=== PATIENT | male | born 1955 | race Caucasian/White ===

== ENCOUNTER → 2017-10-25 12:53 | Outpatient (CLI) | payer BC, SELFPAY ==
--- NOTE | 2017-10-25 12:57 | RAD_ITS ---
STUDY: X-RAY - CERVICAL SPINE REASON FOR EXAM: Male, 62 years old. Neck pain and right shoulder pain. TECHNIQUE: 5 view(s) of the cervical spine were obtained including oblique views. COMPARISON: None FINDINGS: Normal anterior atlantoaxial articulation. Normal odontoid process. There is straightening of the normal cervical lordosis. Normal vertebral bodies and endplates. Mild degree of disc space narrowing at the C5-C6 and C6-C7 levels. Normal visualized intervertebral neuroforamina. The soft tissue structures are unremarkable. RAD/Cerv Spine 4 or 5 Views IMPRESSION: Straightening of the normal cervical lordosis. Mild degree of disc space narrowing at the C5-C6 and C6-C7 levels. Electronically Signed: Fredy Huerta MD at 9:51 EDT Tel [phone], Service support ,
--- NOTE | 2017-10-25 12:57 | RAD_ITS ---
STUDY: X-RAY - RIGHT SHOULDER REASON FOR EXAM: Male, 62 years old. Pain TECHNIQUE: 3 view(s) of the shoulder. COMPARISON: None. FINDINGS: Normal glenohumeral articulation. Normal acromioclavicular joint. Normal acromion. Normal humeral head and visualized proximal humerus. The soft tissue structures are unremarkable. Normal visualized pulmonary apex. RAD/Shoulder min 2 Views IMPRESSION: Normal x-ray examination of the shoulder. Electronically Signed: Dewey Márquez MD at 22:16 EDT Tel , Service support ,
== END ==
PROVIDERS: Family Provider Family Medicine; PCP Family Medicine; Visit Provider Orthopaedic Surgery
DX: M54.2 Cervicalgia (principal); M25.511 Pain in right shoulder
CPT/HCPCS: 72050; 73030

== ENCOUNTER 2017-10-28 08:20 | Outpatient (RCR) | payer BC, SELFPAY ==
--- NOTE | 2017-11-04 11:09 | HP.PTEVAL_ITS ---
Patient's Visit Information CHANG TALBERT is a 62 year old M referred to Physical Therapy by DO PEGGY Verma with a diagnosis of R adhesive capsulitis and neck pain. Date of Evaluation: 10/28/17 Physical Therapist: Rafael Aguayo - Visit Plan Frequency: 2x /Week Duration: 4 Weeks Plan: Start with SNAGs with towel assist of cervical spine into extension and bilateral rotation. Progress R shoulder ROM, including distraction joint mobs progressing to full motion. Progress HEP as able. - Subjective Subjective: Pt. is here today for his initial evaluation with diagnosis of adhesive capsulitis and neck pain. Pt. reports having R shoulder pain for a few months now without a mechanism of injury. He reports having increased difficulty with raising his arm of his head, putting his coat on, reaching, lifting, sleeping on his R side and work/recreational activities. Decreased pain : not using his arm. His neck is mostly stiffness with extension and rotation. Pt. denies N/T in either UE and no suddness weakness noted. Pt. is not dropping any objects as well. Pt. reports that is arm does wake him up at night as well. Pt. is hopeful to reduce symptoms in order to get back to [employer] this summer/ spring without limitations. - Pain R shoulder Pain Intensity (Out of 10): 3 Pain Intensity Range: 0, 5 - Objective POSTURE: Pt. has rounded shoulders, but able to correct. Pt. has a long neck with slight FH positioning. Pt. has normal shoulder heights. PALPATION: Pt. has tenderness along subacromial space (minimal). Pt. has some tendernss along R UT and throughout posterior shoulder. No distal symptoms. NEUROLOGICAL: Pt. has normal sensation to light and sharp touch of bilateral UEs. Pt. has 2+ biceps and tricpes DTR bilaterally. No upper limb tension noted. ROM: AROM- L shoulder- flexon 180deg, abd 178deg, ext 50deg, Functional ER C6, fuctional IR T12 (L hand dominant). R shoulder- flexion 148deg increase in symptoms, abd 132deg increase in symptoms,functional ER C3 abherrant motion, functional IR- L5 increase in symptoms. PROM R shoulder- flexion 153deg increase NW, abd 144deg increase NW, ER at 90deg- 60deg, IR at 90deg 35deg. CERVICAL SPINE: flexion nil loss, ext min loss, rotation R min loss, rotation L min loss, SB nil loss bilat. No pain with cervical spine, just tightness. MMT- 5/5 throughout R and L shoulders. Pt. had mild increase NW with abd, no pain with ER. CERVICAL: 5/5 isometrics no pain. - Special Tests C/S Radiculapathy - Left Spurlings: Negative C/S Radiculapathy - Right Spurlings: Negative C/S Radiculapathy - Left Cervical distraction: Negative C/S Radiculapathy - Right Cervical distraction: Negative C/S Radiculapathy - Left Relief test: Negative C/S Radiculapathy - Right Relief test: Negative C/S Radiculapathy - Valsalva: Negative Cervical Sitting: Protrusion - Mechanical Response: No effect Cervical Sitting: Protrusion - Symptoms During Testing: No effect Cervical Sitting: Protrusion - Symptoms After Testing: No effect Cervical Sitting: Retraction - Mechanical Response: No effect Cervical Sitting: Retraction - Symptoms During Testing: No effect Cervical Sitting: Retraction - Symptoms After Testing: No effect Comments:: stiffness noted Cervical Sitting: Retraction-Extension - Mechanical Response: No effect Cerv Sitting: Retraction-Extension - Symptoms During Testing: No effect Cerv Sitting: Retraction-Extension - Symptoms After Testing: No effect Cervical Sitting: Sidebend Right - Mechanical Response: No effect Cervical Sitting: Sidebend Right - Symptoms During Testing: No effect Cervical Sitting: Sidebend Right - Symptoms After Testing: No effect Cervical Sitting: Sidebend Left - Mechanical Response: No effect Cervical Sitting: Sidebend Left - Symptoms During Testing: No effect Cervical Sitting: Sidebend Left - Symptoms After Testing: No effect Cervical Sitting: Rotation Right - Mechanical Response: No effect Cervical Sitting: Rotation Right - Symptoms During Testing: No effect Cervical Sitting: Rotation Right - Symptoms After Testing: No effect Comments:: stiffness noted Cervical Sitting: Rotation Left - Mechanical Response: No effect Cervical Sitting: Rotation Left - Symptoms During Testing: No effect Cervical Sitting: Rotation Left - Symptoms After Testing: No effect Comments:: stiffness noted Cervical Sitting: Flexion - Mechanical Response: No effect Cervical Sitting: Flexion - Symptoms During Testing: No effect Cervical Sitting: Flexion - Symptoms After Testing: No effect R Shoulder External Rotation Lag Test - RC Tear: Negative R Shoulder Drop Sign - IS Test: Negative R Shoulder Empty Can - SS: Negative R Shoulder Belly Press - SupScap: Negative R Shoulder Neer - Impingement: Positive R Shoulder [place] - Impingement: Positive R Shoulder Speeds Test - Labrum/Biceps: Negative R Shoulder Shrug Sign - OA/Adhesive Capsulitis: Negative - Goals Goal 1:: Pt. to be I with HEP. Goal Time Frame: 4-6 Weeks Goal 2:: Pt. to have increased R shoulder ROM to full throughout without increase in symptoms. Goal Time Frame: 4-6 Weeks Goal 3:: Pt. to have increased cervical extension and rotation bilaterally to full without symptoms. Goal Time Frame: 4-6 Weeks Goal 4:: Pt. to sleep throughout the night without increase in shoulder symptoms. Goal Time Frame: 4-6 Weeks Goal 5:: Pt. to complete all ADLs and job related activities without issues. Goal Time Frame: 4-6 Weeks Goal 6:: Pt. to resume all golfing withtout limitations of cervical spine or R shoulder. Goal Time Frame: 4-6 Weeks - Rehabilitation Potential Physical Therapy Diagnosis: Pt. presents with signs and symptoms consistent with R adhesive capsulitis and neck stiffness. Pt. did not have any signs of radicular symptoms. He most likely had a R shoulder injury and started to gaurd resulting in hypomobility. Pt. also has marked sitffness of his cervical spine with rotation and extension. Pt. would benefit from PT to increase R shoulder and cervical spine ROM allowing for increased tolerance to all ADLs and recreational activities. Rehabilitation Potential: Excellent - Anticipated Interventions Patient/Client Instruction: Educate patient on: Condition, Plan of Care, Risk Factors, Benefits of Fitness Program For the Purpose of:: To improve decision making, To facilitate caregiver knowledge, To improve self management, To prevent re-injury, To improve ability to perform tasks related to life management, To improve tolerance to ADL's Therapeutic Exercise to Include: Strength training, Power training, Flexibilty training, Passive ROM, Active ROM, Eusebio Exercises, Scapular Strength/ Stabilization For the Purpose of:: To decrease pain, To increase ROM, To improve nutrient delivery to tissue, To increase oxygenation perfusion, To improve muscle performance and motor function, To improve ability to perform ADL's, To increase tolerance to activity/condition/position, To improve health of tissue, To decrease soft tissue restriction, To increase flexibility/ROM Manual Therapy Techniques to Include: Mobilization, Passive ROM, Functional dry needling, Soft tissue mobilization For the Purpose of:: To decrease pain, To increase ROM, To improve nutrient delivery to tissue Thank you for the opportunity to evaluate your patient. For Medicare and Medicare HMO plans, please review the plan of care and approve it. It will need to be FAXED BACK to us at [phone] for Medicare purposes. Please let me know if there are questions or concerns regarding this plan of care. Physician Signature: Date:
--- NOTE | 2018-04-20 10:54 | HP.PTDCNRP_ITS ---
HP - Discharge Summary (1) - Patient Information CHANG TALBERT was seen in my office for initial evaluation on 10/28/17. The following Plan of Care was established for this patient: Initial Frequency: 2x /Week Initial Duration: 4 Weeks - Anticipated Interventions Patient/Client Instruction: Educate patient on: Condition, Plan of Care, Risk Factors, Benefits of Fitness Program For the Purpose of:: To improve decision making, To facilitate caregiver knowledge, To improve self management, To prevent re-injury, To improve ability to perform tasks related to life management, To improve tolerance to ADL's Therapeutic Exercise to Include: Strength training, Power training, Flexibilty training, Passive ROM, Active ROM, Eusebio Exercises, Scapular Strength/ Stabilization For the Purpose of:: To decrease pain, To increase ROM, To improve nutrient delivery to tissue, To increase oxygenation perfusion, To improve muscle performance and motor function, To improve ability to perform ADL's, To increase tolerance to activity/condition/position, To improve health of tissue, To decrease soft tissue restriction, To increase flexibility/ROM Manual Therapy Techniques to Include: Mobilization, Passive ROM, Functional dry needling, Soft tissue mobilization For the Purpose of:: To decrease pain, To increase ROM, To improve nutrient delivery to tissue This patient was last seen in our office 10/28/17. Pertinent comments regarding their Physical therapy will appear below: Pt. was evaluated for his adhesive capsulitis. Pt. was given exercises to work on ROM. I talked to patient today and he reports no longer having any issues. Pt. will be DC from PT at this point in time. At this point I will be discontinuing this patient from physical therapy. I would be happy to see this patient again in the future if found appropriate by the physician. Thank you! Rafael Aguayo
== END 2017-10-28 19:00 | disposition home or self-care (01) ==
LOC: PT 08:20
PROVIDERS: Family Provider Family Medicine; PCP Family Medicine; Visit Provider Orthopaedic Surgery
DX: M25.511 Pain in right shoulder (principal); M75.01 Adhesive capsulitis of right shoulder; M54.2 Cervicalgia
CPT/HCPCS: 97162

== ENCOUNTER → 2017-12-19 07:03 | Outpatient (CLI) | payer BC, SELFPAY ==
[2017-12-19 10:33] LABS: PSA,Total - Annual Screen 2.65 ng/mL (0.00-4.00)
[2017-12-19 10:57] LABS: AST(SGOT) 19 U/L (15-37); Alanine Aminotransfer ALT/SGPT 28 U/L (16-61); Albumin, Serum 3.7 g/dL (3.2-5.0); Alkaline Phosphatase 87 U/L (45-117); Bilirubin, Direct 0.13 mg/dL (0.00-0.30); Cholesterol 128 mg/dL (200); Globulin 3.9 g/dL (2.2-4.2); High Density Lipoprotein 49 mg/dL; Protein, Total 7.6 g/dL (6.4-8.2); Triglycerides 58 mg/dL; Very Low Density Lipoprotein 12 mg/dL (5-40)
== END ==
PROVIDERS: Family Provider Family Medicine; PCP Family Medicine; Visit Provider Internal Medicine Cardiovascular Disease
DX: E78.5 Hyperlipidemia, unspecified (principal); Z79.899 Other long term (current) drug therapy; Z12.5 Encounter for screening for malignant neoplasm of prostate
CPT/HCPCS: 36415; 80061; 80076; 84153; G0103

== ENCOUNTER → 2018-12-27 07:01 | Outpatient (CLI) | payer BC, SELFPAY ==
[2018-12-27 10:37] LABS: AST(SGOT) 21 U/L (15-37); Alanine Aminotransfer ALT/SGPT 28 U/L (16-61); Albumin, Serum 3.8 g/dL (3.2-5.0); Alkaline Phosphatase 84 U/L (45-117); Anion Gap 5 (5-15); BUN 14 mg/dL (7-18); Bilirubin, Direct 0.17 mg/dL (0.00-0.30); Calcium,Total 8.8 mg/dL (8.5-10.1); Chloride 108 mmol/L (98-107); Cholesterol 133 mg/dL (200); EST Glomerular Filtration Rate 80 mL/min (>60); Est Glom Filt Rate - Afr Amer 97 mL/min (>60); Globulin 3.8 g/dL (2.2-4.2); Glucose 82 mg/dL (74-106); High Density Lipoprotein 50 mg/dL; PSA,Total - Annual Screen 2.73 ng/mL (0.00-4.00); Potassium 3.9 mmol/L (3.5-5.1); Protein, Total 7.6 g/dL (6.4-8.2); Sodium Level 141 mmol/L (136-145); Triglycerides 50 mg/dL; Very Low Density Lipoprotein 10 mg/dL (5-40)
== END ==
PROVIDERS: Family Provider Family Medicine; PCP Family Medicine; Referring Provider Family Medicine; Visit Provider Family Medicine
DX: K40.20 Bilateral inguinal hernia, without obstruction or gangrene, not specified as recurrent (principal); E78.00 Pure hypercholesterolemia, unspecified; Z12.5 Encounter for screening for malignant neoplasm of prostate
CPT/HCPCS: 36415; 80048; 80061; 80076; 84153; G0103

== ENCOUNTER → 2019-05-03 13:37 | Outpatient (CLI) | payer BC, SELFPAY ==
[2019-05-03 13:32] VITALS: BMI 23.1
--- NOTE | 2019-05-03 13:38 | RAD_ITS ---
STUDY: X-RAY - RIGHT KNEE REASON FOR EXAM: Male, 64 years old. Pain. No specific injury. TECHNIQUE: 4 view(s) of the knee. COMPARISON: None. FINDINGS: Normal visualized distal femur. Normal visualized proximal tibia and fibula. Normal proximal tibiofibular articulation. There is no acute fracture, dislocation or destructive osseous pathology. Normal medial femorotibial compartment. Normal lateral femorotibial compartment. Normal patellofemoral articulation. There is no demonstrated joint effusion. The soft tissue structures are unremarkable. RAD/Knee 4 or More Views IMPRESSION: Normal x-ray examination of the knee. Electronically Signed: Waldo Eller DO at 17:07 EDT Tel [phone], Service support ,
== END ==
PROVIDERS: Family Provider Family Medicine; PCP Family Medicine; Referring Provider Physician Assistant; Visit Provider Physician Assistant
DX: M25.561 Pain in right knee (principal)
CPT/HCPCS: 73564

== ENCOUNTER → 2019-07-14 07:10 | Outpatient (CLI) | payer BC, SELFPAY ==
[2019-05-03 13:32] VITALS: BMI 23.1
--- NOTE | 2019-07-14 07:43 | RAD_ITS ---
STUDY: X-RAY - ACUTE ABDOMINAL SERIES REASON FOR EXAM: Male, 64 years old. Lower abdominal pain/pinching feeling TECHNIQUE: Single view of the chest. Supine, and erect view(s) of the abdomen were obtained. COMPARISON: None. FINDINGS: There is hyperinflation of the lungs consistent with chronic obstructive lung disease (COPD). Normal size heart. Normal mediastinum and rambo. Normal visualized pulmonary arteries. Normal visualized aortic arch and descending thoracic aorta. There is a non-specific bowel gas pattern. The soft tissue structures of the abdomen and pelvis are unremarkable. There is endplate spondylosis of the thoracic spine. RAD/Acute Abdomen Inc Chest IMPRESSION: Pulmonary findings suggestive of COPD. Endplate spondylosis of the thoracic spine. There is no evidence of ileus, obstruction, or free intraperitoneal air. Electronically Signed: Lester Acosta MD at 21:23 EST , Service support ,
[2019-07-14 08:12] LABS: Absolute Lymphocyte Count 1.66 X10^3/uL (0.83-4.51); Absolute Neutrophil Count 3.4 X10^3/uL (2.0-7.7); Basophil# 0.04 X10^3/uL; Basophil% 0.7 % (0-1); Eosinophil# 0.14 X10^3/uL; Eosinophils% 2.4 % (0-5); Hematocrit 48.1 % (40-54); Hemoglobin 15.4 g/dL (13.0-16.5); Lymphocyte # 1.66 X10^3/ul (4.0); Lymphocyte % 28.9 % (19-41); Mean Corpuscular Hgb 31.4 pg (27.0-32.0); Mean Corpuscular Volume 98.2 fL (80-94); Mean Platelet Vol. 9.3 fl (6.2-12.0); Monocyte# 0.51 X10^3/uL; Monocyte% 8.9 % (0-10); NRBC Flagged by Analyzer 0 % (0-5); Neutrophil # 3.38 X10^3/uL (2.7-7.7); Neutrophil % 58.9 % (47-70); Platelet Count 242 K/mm3 (150-450); RBC Distribution Width CV 12.9 % (11.6-14.6); RBC Distribution Width SD 46.3 fl (35.1-43.9); White Blood Count 5.7 K/mm3 (4.4-11.0)
[2019-07-14 08:47] LABS: BUN 15 mg/dL (7-18); Creatinine, Serum 1.02 mg/dL (0.70-1.30); Glucose 86 mg/dL (74-106)
[2019-07-14 08:48] LABS: ALB/GLOB Ratio 1.1 RATIO (0.9-2.4); AST(SGOT) 20 U/L (15-37); Alanine Aminotransfer ALT/SGPT 26 U/L (16-61); Albumin, Serum 4.1 g/dL (3.2-5.0); Alkaline Phosphatase 71 U/L (45-117); Anion Gap 5 (5-15); BUN/Creat Ratio 14.7 RATIO (10-20); Chloride 108 mmol/L (98-107); EST Glomerular Filtration Rate 78 mL/min (>60); Est Glom Filt Rate - Afr Amer 94 mL/min (>60); Globulin 3.7 g/dL (2.2-4.2); Potassium 3.6 mmol/L (3.5-5.1); Protein, Total 7.8 g/dL (6.4-8.2); Sodium Level 141 mmol/L (136-145)
== END ==
PROVIDERS: Family Provider Family Medicine; PCP Family Medicine; Referring Provider Family Medicine; Visit Provider Family Medicine
DX: R10.30 Lower abdominal pain, unspecified (principal)
CPT/HCPCS: 36415; 74022; 80053; 85025

== ENCOUNTER → 2019-08-02 11:04 | Outpatient (CLI) | payer BC, SELFPAY ==
[2019-05-03 13:32] VITALS: BMI 23.1
== END ==
PROVIDERS: Family Provider Family Medicine; PCP Family Medicine; Referring Provider Family Medicine; Visit Provider Family Medicine
DX: R19.7 Diarrhea, unspecified (principal)
CPT/HCPCS: 87493; 87506

== ENCOUNTER → 2019-08-27 08:11 | Outpatient (CLI) | payer BC, SELFPAY ==
[2019-05-03 13:32] VITALS: BMI 23.1
--- NOTE | 2019-08-27 08:17 | RAD_ITS ---
STUDY: X-RAY - ESOPHAGUS (BARIUM SWALLOW) WITH FLUOROSCOPY REASON FOR EXAM: Male, 64 years old. DYSPHAGIA X SEVERAL YEARS, GETTING WORSE, INCREASES WITH COLD LIQUIDS TECHNIQUE: 16 view(s) of the esophagus were obtained following swallowing of barium. FLUOROSCOPY TIME (if supplied): (0:27) minutes/seconds COMPARISON: None. FINDINGS: There is no demonstrated esophageal foreign body. There is no demonstrated stricture or mucosal abnormality. Normal gastroesophageal junction, without a demonstrated hiatal hernia. The patient ingested a 12 mm tablet of barium without any difficulty. There is atherosclerotic calcification of the aortic arch with tortuosity of the descending aorta. Normal visualized pulmonary parenchyma. There are degenerative changes of the visualized thoracic spine. RAD/Esophagus Only IMPRESSION: Unremarkable examination. Electronically Signed: Fredy Huerta, at 9:51 EST , Service support ,
== END ==
PROVIDERS: Family Provider Family Medicine; PCP Family Medicine; Referring Provider Family Medicine; Visit Provider Family Medicine
DX: R13.10 Dysphagia, unspecified (principal)
CPT/HCPCS: 74220

== ENCOUNTER → 2019-10-01 12:12 | Outpatient (CLI) | payer BC, SELFPAY ==
[2019-05-03 13:32] VITALS: BMI 23.1
--- NOTE | 2019-10-01 12:12 | EGD_PTH ---
PATIENT: CHANG TALBERT LOC: [facility] U#:[id number] AGE/SX: 70/M ROOM: RE10/01/[address]: Dr. López Christina MD : 1955 BED: DIS: SPEC #: [id number] RECD: 10/01/19 14:55 STATUS: BRI YU #: [id number] SAE: 10/01/19 12:[address]: López Christina DEPT: SURGICAL PATHOLOGY RECD BY: Cameron Gooden ENTERED: 10/02/19 09:22 SP TYPE: EGD BIOPSY OT DR: ISAUAR Tissues: Esophageal mucous membrane Procedures: Surgery Specimen Level IV HEADER OPERATION: EGD with biopsies PRE-OP DIAGNOSIS: Dysphagia TISSUE SUBMITTED: Esophageal biopsies, rule out EE MICROSCOPIC DIAGNOSIS Esophagus, biopsy: Fragments of superficial squamous mucosa. No evidence of inflammation. See comment. AM:annabel 10/03/19 COMMENT There is no evidence of eosinophilic esophagitis. Clinical correlation is suggested. MICROSCOPIC DESCRIPTION Slides are reviewed. GROSS DESCRIPTION Received in fixative is one container labeled with the patient's name and designated esophageal biopsy. The specimen consists of multiple irregular fragments of light smiley soft tissue that in aggregate measure 0.5 x 0.2 x 0.1 cm. The specimen is totally submitted in one cassette. / SJ:annabel 10/02/19 TC:5 CPT: 67518
== END ==
PROVIDERS: Referring Provider Internal Medicine Gastroenterology; Visit Provider Internal Medicine Gastroenterology
DX: R13.10 Dysphagia, unspecified (principal)
CPT/HCPCS: 88305

== ENCOUNTER → 2019-10-12 10:30 | Outpatient (CLI) | payer BC, SELFPAY ==
[2019-05-03 13:32] VITALS: BMI 23.1
== END ==
PROVIDERS: PCP Family Medicine; Referring Provider Family Medicine; Visit Provider Family Medicine
DX: A04.72 Enterocolitis due to Clostridium difficile, not specified as recurrent (principal)
CPT/HCPCS: 87493

== ENCOUNTER → 2020-01-09 07:01 | Outpatient (CLI) | payer BC, SELFPAY ==
[2019-05-03 13:32] VITALS: BMI 23.1
[2020-01-09 10:50] LABS: Anion Gap 6 (5-15); BUN 21 mg/dL (7-18); BUN/Creat Ratio 21.6 RATIO (10-20); Calcium,Total 9.1 mg/dL (8.5-10.1); Chloride 106 mmol/L (98-107); Cholesterol 130 mg/dL (200); Creatinine, Serum 0.97 mg/dL (0.70-1.30); EST Glomerular Filtration Rate 82 mL/min (>60); Est Glom Filt Rate - Afr Amer 100 mL/min (>60); Glucose 89 mg/dL (74-106); High Density Lipoprotein 54 mg/dL; Potassium 3.9 mmol/L (3.5-5.1); Sodium Level 140 mmol/L (136-145); Triglycerides 56 mg/dL; Very Low Density Lipoprotein 11 mg/dL (5-40)
== END ==
PROVIDERS: PCP Family Medicine; Referring Provider Family Medicine; Visit Provider Family Medicine
DX: E78.00 Pure hypercholesterolemia, unspecified (principal); Z13.1 Encounter for screening for diabetes mellitus; Z12.5 Encounter for screening for malignant neoplasm of prostate
CPT/HCPCS: 36415; 80048; 80061; 84153; G0103

== ENCOUNTER → 2020-01-31 07:14 | Outpatient (CLI) | payer BC, SELFPAY ==
[2019-05-03 13:32] VITALS: BMI 23.1
[2020-01-31 10:19] LABS: Absolute Lymphocyte Count 1.58 X10^3/uL (0.83-4.51); Absolute Neutrophil Count 2.9 X10^3/uL (2.0-7.7); Basophil# 0.04 X10^3/uL; Basophil% 0.8 % (0-1); Eosinophil# 0.13 X10^3/uL; Eosinophils% 2.6 % (0-5); Hematocrit 48.8 % (40-54); Hemoglobin 15.5 g/dL (13.0-16.5); Lymphocyte # 1.58 X10^3/ul (4.0); Lymphocyte % 31.5 % (19-41); Mean Corp Hgb Conc 31.8 g/dL (32-36); Mean Corpuscular Hgb 31.8 pg (27.0-32.0); Mean Platelet Vol. 9.9 fl (6.2-12.0); Monocyte# 0.37 X10^3/uL; Monocyte% 7.4 % (0-10); NRBC Flagged by Analyzer 0 % (0-5); Neutrophil # 2.88 X10^3/uL (2.7-7.7); Neutrophil % 57.5 % (47-70); Platelet Count 229 K/mm3 (150-450); RBC Distribution Width CV 12.8 % (11.6-14.6); RBC Distribution Width SD 47.8 fl (35.1-43.9); Red Blood Count 4.88 M/mm3 (4.6-6.2)
[2020-01-31 10:54] LABS: PSA,Total- Diagnostic 2.25 ng/mL (0.0-4.0)
== END ==
PROVIDERS: PCP Family Medicine; Referring Provider Family Medicine; Visit Provider Family Medicine
DX: R63.4 Abnormal weight loss (principal); R97.20 Elevated prostate specific antigen [PSA]
CPT/HCPCS: 36415; 84153; 84443; 85025

== ENCOUNTER → 2020-03-27 16:40 | Outpatient (CLI) | payer BC, SELFPAY ==
[2020-03-27 13:40] VITALS: BMI 21.7
[2020-03-27 17:58] LABS: AST(SGOT) 19 U/L (15-37); Alanine Aminotransfer ALT/SGPT 31 U/L (16-61); Albumin, Serum 3.8 g/dL (3.2-5.0); Alkaline Phosphatase 82 U/L (45-117); Bilirubin, Direct 0.15 mg/dL (0.00-0.30); Cholesterol 121 mg/dL (200); Globulin 3.6 g/dL (2.2-4.2); High Density Lipoprotein 48 mg/dL; Protein, Total 7.4 g/dL (6.4-8.2); T4 Total, Thyroxin 5.4 ug/dL (4.5-12.1); Thyroid Stim Hormone (TSH) 4.27 uIU/mL (0.358-3.74); Triglycerides 116 mg/dL; Very Low Density Lipoprotein 23 mg/dL (5-40)
== END ==
PROVIDERS: PCP Family Medicine; Referring Provider Internal Medicine Cardiovascular Disease; Visit Provider Internal Medicine Cardiovascular Disease
DX: E78.00 Pure hypercholesterolemia, unspecified (principal); E03.9 Hypothyroidism, unspecified
CPT/HCPCS: 36415; 80061; 80076; 84436; 84443

== ENCOUNTER → 2020-04-23 12:01 | Outpatient (CLI) | payer BC, SELFPAY ==
[2020-03-27 13:40] VITALS: BMI 21.7
--- NOTE | 2020-04-23 17:12 | STRESSREP ---
Stress Test Report Exercise stress test. 65-year-old man with a history of family history of coronary artery disease. Stress protocol: Resting EKG demonstrates normal sinus rhythm with a rate of 61 bpm normal intervals are noted resting blood pressure is 128/70 mmHg. The patient exercised according to the regular [place] protocol for a total duration of 12 minutes. The maximum heart rate attained was 153 bpm which was 99% of max impacted heart rate the maximum workload was 13.4 metabolic equivalents. At rest there were no ST or T wave changes noted to suggest ischemia at peak exercise upsloping ST changes were noted of approximately 1 mm. During recovery there was upsloping ST changes noted in leads II, III and aVF of approximately 0.35 mm. No chest pain was noted the test was terminated due to the target heart rate being achieved. No clinical angina was noted. The peak blood pressure was 180/70 mmHg which was a normal response to exercise. Rate-pressure product was 25,300. Conclusion: Exercise stress test with no definitive EKG criteria for ischemia at a high workload. Excellent functional capacity. No arrhythmias noted.
== END ==
PROVIDERS: PCP Family Medicine; Referring Provider Internal Medicine Cardiovascular Disease; Visit Provider Internal Medicine Cardiovascular Disease
DX: R07.9 Chest pain, unspecified (principal); E03.9 Hypothyroidism, unspecified; E78.5 Hyperlipidemia, unspecified; Z82.49 Family history of ischemic heart disease and other diseases of the circulatory system
CPT/HCPCS: 93017

== ENCOUNTER 2020-07-16 14:54 | Outpatient (RCR) | payer BC, SELFPAY | END 2020-07-16 19:00 | disposition home or self-care (01) | LOC: PT 14:54 | PROVIDERS: PCP Family Medicine; Referring Provider Orthopaedic Surgery; Visit Provider Orthopaedic Surgery | DX: M76.62 Achilles tendinitis, left leg (principal) ==

== ENCOUNTER → 2020-12-15 07:01 | Outpatient (CLI) | payer OTHER, SELFPAY ==
[2020-12-15 10:30] LABS: ALB/GLOB Ratio 1.1 RATIO (0.9-2.4); AST(SGOT) 19 U/L (15-37); Alanine Aminotransfer ALT/SGPT 32 U/L (16-61); Albumin, Serum 3.8 g/dL (3.2-5.0); Alkaline Phosphatase 88 U/L (45-117); Anion Gap 5 (5-15); BUN 16 mg/dL (7-18); BUN/Creat Ratio 17.6 RATIO (10-20); Calcium,Total 8.9 mg/dL (8.5-10.1); Chloride 108 mmol/L (98-107); Cholesterol 135 mg/dL (200); Creatinine, Serum 0.91 mg/dL (0.70-1.30); EST Glomerular Filtration Rate 88 mL/min (>60); Est Glom Filt Rate - Afr Amer 107 mL/min (>60); Globulin 3.5 g/dL (2.2-4.2); Glucose 94 mg/dL (74-106); High Density Lipoprotein 56 mg/dL; PSA,Total- Diagnostic 2.76 ng/mL (0.0-4.0); Protein, Total 7.3 g/dL (6.4-8.2); Sodium Level 140 mmol/L (136-145); Thyroid Stim Hormone (TSH) 5.77 uIU/mL (0.358-3.74); Triglycerides 70 mg/dL; Very Low Density Lipoprotein 14 mg/dL (5-40)
== END ==
PROVIDERS: PCP Family Medicine; Referring Provider Family Medicine; Visit Provider Family Medicine
DX: E03.9 Hypothyroidism, unspecified (principal); R97.20 Elevated prostate specific antigen [PSA]; E78.00 Pure hypercholesterolemia, unspecified
CPT/HCPCS: 36415; 80053; 80061; 82248; 84153; 84443

== ENCOUNTER → 2021-02-16 07:11 | Outpatient (CLI) | payer OTHER, SELFPAY ==
[2021-01-26 09:11] VITALS: BMI 21.7
--- NOTE | 2021-02-16 07:12 | MRI_ITS ---
STUDY: MRI LEFT ANKLE WITHOUT CONTRAST REASON FOR EXAM: Achilles tendon pain and swelling for 10 months, no specific injury. TECHNIQUE: Standardized fat and water weighted pulse sequences were obtained in all 3 orthogonal planes. COMPARISON: None. FINDINGS: There is mild edema in the posterior medial and posterior lateral subcutis adipose space. There is a very small volume of fluid in the submalleolar posterior tibialis tendon sheath (T2 axial images 18, 20). The posterior tibialis tendon is morphologically normal. Normal flexor digitorum longus tendon. Normal flexor hallucis longus tendon. There is a very small volume of fluid in the submalleolar peroneal tendon sheath (T2 axial image 21). The peroneus longus and brevis tendons are morphologically normal. Normal tibialis anterior tendon. Normal extensor hallucis longus tendon. Normal extensor digitorum longus tendons. There is fusiform thickening of the Achilles tendon in the watershed zone measuring approximately 1.3 cm in AP dimension and an intrasubstance partial tear of the Achilles tendon in the watershed zone approximately 3.7 cm proximal to the calcaneal insertion, extending over a 1 cm in length (inversion recovery sagittal image 8). There is edema in Kager''s fat triangle (inversion recovery sagittal images 8, 9). Normal plantar fascia. Normal plantar calcaneal tubercles. Normal intrinsic muscles of the rearfoot. Normal distal tibiofibular syndesmotic ligamentous complex. Normal lateral ligamentous complex. Normal subtalar ligaments and sinus tarsi. Normal deltoid ligamentous complexes. Normal plantar calcaneonavicular (spring) ligament. Normal tibiotalar articulation. Normal talar dome. Normal subtalar articulations. Normal talonavicular articulation. Normal calcaneocuboid articulation. Normal navicular-cuneiform articulations. There is a subchondral cyst in the base of the first metatarsal (inversion recovery sagittal image 5). MRI/Lower Ext Joint Only (Routine) IMPRESSION: Achilles tendinosis and intrasubstance partial tear of the Achilles tendon in the watershed zone with edema in Kager''s fat triangle. Very mild posterior tibialis tenosynovitis. Very mild peroneal tenosynovitis. Electronically Signed: Alvarez Taylor MD at 10:30 EDT Tel , Service support ,
== END ==
PROVIDERS: PCP Family Medicine; Referring Provider Physician Assistant; Visit Provider Physician Assistant
DX: M76.62 Achilles tendinitis, left leg (principal)
CPT/HCPCS: 73721

== ENCOUNTER → 2021-07-30 07:01 | Outpatient (CLI) | payer OTHER, SELFPAY ==
[2021-07-30 11:08] LABS: ALB/GLOB Ratio 0.8 RATIO (0.9-2.4); AST(SGOT) 16 U/L (15-37); Alanine Aminotransfer ALT/SGPT 31 U/L (16-61); Albumin, Serum 3.6 g/dL (3.2-5.0); Alkaline Phosphatase 86 U/L (45-117); Anion Gap 6 (5-15); BUN 18 mg/dL (7-18); BUN/Creat Ratio 18.9 RATIO (10-20); Calcium,Total 9.6 mg/dL (8.5-10.1); Chloride 107 mmol/L (98-107); Cholesterol 128 mg/dL (200); Creatinine, Serum 0.95 mg/dL (0.70-1.30); EST Glomerular Filtration Rate 84 mL/min (>60); Est Glom Filt Rate - Afr Amer 102 mL/min (>60); Free T3 2.6 pg/mL (2.18-3.98); Globulin 4.3 g/dL (2.2-4.2); Glucose 87 mg/dL (74-106); High Density Lipoprotein 52 mg/dL; PSA,Total - Annual Screen 2.17 ng/mL (0.00-4.00); Potassium 4.1 mmol/L (3.5-5.1); Protein, Total 7.9 g/dL (6.4-8.2); Sodium Level 140 mmol/L (136-145); T4 Free Direct 0.88 ng/dL (0.76-1.46); Thyroid Stim Hormone (TSH) 5.19 uIU/mL (0.358-3.74); Triglycerides 48 mg/dL; Very Low Density Lipoprotein 10 mg/dL (5-40)
== END ==
PROVIDERS: PCP Family Medicine; Referring Provider Family Medicine; Visit Provider Family Medicine
DX: E03.9 Hypothyroidism, unspecified (principal); E78.00 Pure hypercholesterolemia, unspecified; R97.20 Elevated prostate specific antigen [PSA]
CPT/HCPCS: 36415; 80053; 80061; 84153; 84439; 84443; 84481; G0103

== ENCOUNTER 2022-01-11 05:54 | Day surgery (SDC) | payer BC, SELFPAY ==
--- NOTE | 2022-01-01 15:59 | EKG12_ITS ---
Test Reason : PRE OP Blood Pressure : / mmHG Vent. Rate : 062 BPM Atrial Rate : 062 BPM P-R Int : 174 ms QRS Dur : 096 ms QT Int : 420 ms P-R-T Axes : 067 031 058 degrees QTc Int : 426 ms Normal sinus rhythm Normal ECG Confirmed by BG CHAVEZ, PERCY ([id number]), greeting card editor MARY JO REYNA ([id number]) on 01/05/2022 1:03:29 PM Referred By: Jacob Baxter Confirmed By:PERCY PEDERSON MD
[2022-01-01 17:02] LABS: Hematocrit 45.2 % (40-54); Hemoglobin 14.6 g/dL (13.0-16.5); Mean Corp Hgb Conc 32.3 g/dL (32-36); Mean Corpuscular Volume 99.1 fL (80-94); Mean Platelet Vol. 9.7 fl (6.2-12.0); Platelet Count 239 K/mm3 (150-450); RBC Distribution Width CV 12.7 % (11.6-14.6); RBC Distribution Width SD 46.5 fl (35.1-43.9); Red Blood Count 4.56 M/mm3 (4.6-6.2); White Blood Count 5.6 K/mm3 (4.4-11.0)
[2022-01-01 17:40] LABS: Anion Gap 5 (5-15); BUN 18 mg/dL (7-18); BUN/Creat Ratio 18.5 RATIO (10-20); Calcium,Total 8.7 mg/dL (8.5-10.1); Chloride 107 mmol/L (98-107); Creatinine, Serum 0.98 mg/dL (0.70-1.30); EST Glomerular Filtration Rate 81 mL/min (>60); Est Glom Filt Rate - Afr Amer 99 mL/min (>60); Glucose 91 mg/dL (74-106); Sodium Level 139 mmol/L (136-145); Thyroid Stim Hormone (TSH) 5.09 uIU/mL (0.358-3.74)
--- NOTE | 2022-01-11 | HERN_PTH ---
PATIENT: CHANG TALBERT [place] [facility] [id number] AGE/SX: 66/M ROOM: RE01/11/[address]: Dr. Jacob Baxter MD : 1955 BED: DIS: 01/11/2022 SPEC #: [id number] RECD: 01/11/22 10:02 STATUS: BRI DAMONSergio #: [id number] SAE: 01/11/22 00:[address]: Jacob Baxter DEPT: SURGICAL PATHOLOGY RECD BY: Tc Villafana ENTERED: 01/11/22 11:44 SP TYPE: Hernia OTHR DR: Dr. Zurdo Friend MD Tissues: HERNIA Procedures: Surgery Specimen Level II HEADER OPERATION: Laparoscopic inguinal hernia repair, umbilical hernia repair PRE-OP DIAGNOSIS: Inguinal hernia bilateral, non-recurrent TISSUE SUBMITTED: Umbilical hernia sac MICROSCOPIC DIAGNOSIS Umbilical hernia sac: A piece of mature adipose tissue, clinically hernia sac. AM:annabel 01/12/2022 MICROSCOPIC DESCRIPTION Slides are reviewed. GROSS DESCRIPTION Received in fixative is one container labeled with the patient's name and designated umbilical hernia sac. The specimen consists of a piece of smiley adipose tissue measuring 2 x 1.5 x 0.4 cm. The specimen is bisected and submitted entirely in one cassette. / SJ:annabel 01/11/2022 TC:5 [facility]: [id number]
[2022-01-11 06:24] VITALS: BP 139/58; PULSE 71; RESP 16; TEMP 36.7; O2SAT 99; BMI 22.2
[2022-01-11] MEDS: Lactated Ringers 1,000 ML 15 ML IV (06:39)
--- NOTE | 2022-01-11 07:00 | PCM.HP.BLA ---
History and Physical Date of Admission: 01/11/22 I have re-examined the patient. 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 Is patient in pain?: No Allergies amoxicillin Allergy (Verified 12/28/21 13:05) Rash Penicillins [PCN] Allergy (Verified 12/28/21 13:05) unknown codeine Adverse Reaction (Verified 12/28/21 13:05) Rash Medications atorvastatin 10 mg PO DAILY 05/18/17 [History Confirmed 12/28/21] cholecalciferol (vitamin D3) 25 mcg (1,000 unit) capsule 25 mcg PO DAILY 03/31/21 [History Confirmed 12/28/21] esomeprazole magnesium 20 mg capsule,delayed release 20 mg PO DAILY 11/26/21 [History Confirmed 12/28/21] tamsulosin 0.4 mg capsule 0.4 mg PO QHS #30 cap 11/26/21 [Rx Confirmed 12/28/21] [facility] Medical History Family history of coronary artery disease History of Clostridioides difficile colitis Hyperlipidemia Hypothyroidism Partial tear of left Achilles tendon Surgical History History of tonsillectomy History of wisdom tooth extraction Family History Brother CAD (coronary artery disease), Onset Age: 59 CABG Heart disease Brother CAD (coronary artery disease), Onset Age: 59 CABG Heart disease Aunt Heart disease Grandfather Cancer lung Grandmother Cancer lung Social History Smoking Status: Never smoker alcohol intake: never substance use type: does not use HPI HPI HPI: CHANG TALBERT, is a 66 M who presents to the office today for presents for further discussion regarding bilateral inguinal hernias. The patient has had a history of complicated C. difficile colitis. Infectious disease Dr. Saeed has been previously contacted and does not recommend oral vancomycin prior to procedure. Routine preoperative prophylactic antibiotic is anticipated. The patient has a history of urinary retention and was initiated on 0.4 mg orally nightly of Flomax. The patient has a left greater than right inguinal hernia. He has a history of GERD successfully treated with Nexium. He has not required any antibiotics for the past 3 years. ROS General General: No weight change, appetite, fatigue, colon cancer, breast cancer or weakness HEENT HEENT: No difficulty swallowing, eye injury, eye surgery, swollen glands or hoarseness Endo Endocrine: No thyroid disease, diabetes mellitus, thyroid cancer, Hair loss, heat intolerance or cold intolerance Skin Skin: No rash or changing moles Musc Musculoskeletal: No back problems, arthritis, rheumatoid arthritis, gout or joint pain Cardio Cardiovascular: No murmur, pacemaker, heart disease, atrial fibrillation, high blood pressure, heart attack, heart stent, palpitations, shortness of breat with exertion or chest pain Psych Psychiatric: No depression, anxiety or hearing voices Resp Respiratory: No shortness of breath, No sleep apnea, No cough, No COPD, No asthma, No emphysema and No wheezing Gastro Gastrointestinal: Yes abdominal pain, No nausea or vomiting, No diarrhea, No constipation, No blood in stool, Yes acid reflux, No hemorrhoids, No ulcers, No gallbladder problem and No black,tarry stools Ant Hematologic: No blood thinners, No blood disorders, No bleeding, No anemia and No blood clots Neuro Neurologic: No system reviewed and no additional complaints, except as documented, No as per HPI, No abnormal gait, No abnormal hearing, No abnormal movements, No abnormal speech, No behavioral changes, No burning sensations, No confusion, No convulsions, No disequilibrium, No dizziness, No localized weakness, No frequent falls, No headache(s), No lack of coordination, No loss of vision, No memory loss, No numbness, No other visual disturbances, No radicular pain, No restless legs, No sensory deficit, No syncope, No tingling, No tremor(s), No weakness and No other Exam Const General: cooperative, healthy appearing and comfortable Orientation: alert and awake [facility] Head: normal to inspection Eyes General: appearance normal, both eyes and all related structures Neck Neck: normal visual inspection Carotids: normal carotid upstroke and no bruits Chest Chest palpation & inspection: normal inspection of the chest Resp Effort & Inspection: normal respiratory effort Auscultation: clear to auscultation bilaterally Cardio Rate: regular rate Rhythm: regular rhythm GI Palpation: soft Other: Left greater than right inguinal hernia. Both reducible Skin General: no rashes or lesions noted Neuro General: patient alert, patient awake and patient oriented x3 Extrem General: no calf tenderness Psych Appearance: grossly normal Assessment and Plan Assessment and Plan (1) History of urinary retention: Status: Acute (2) History of Clostridioides difficile colitis: Status: Acute (3) Inguinal hernia bilateral, non-recurrent: Status: Acute Qualifiers: Obstruction and gangrene presence: without obstruction or gangrene Recurrence: non-recurrent Qualified Code(s): K40.20 - Bilateral inguinal hernia, without obstruction or gangrene, not specified as recurrent Comment: Infectious disease consultation was obtained per Dr. Jacob Saeed. He suggested that no p.o. vancomycin would be required prior to the patient's inguinal herniorrhaphy with anticipated single preoperative dose of Ancef. The patient will be watched conservatively postoperatively and is to contact Dr. Saeed with any postoperative diarrhea concerns Jacob Baxter M.D., F.A.C.S. Plan - Dr. Jacob Baxter MD: Patient with bilateral inguinal hernias. More notable on the left than the right. I recommend to him laparoscopic bilateral hernia repair and I described the technique, benefits risk complications alternatives. He is aware that mesh will be utilized. Because of urinary retention and he has been started on tamsulosin 0.4 mg nightly preoperatively. Because of his history of C. difficile colitis this is a clean procedure but mesh will be utilized and prophylactic Ancef is recommended. As noted above Dr. Saeed has been consulted and no variance in antibiotic treatment indicated at this time The patient does a significant mount of traveling for [facility]. We will need to manage that travel schedule. The patient is aware that when he returns to traveling initiating a low-dose aspirin using support hose will be pertinent. Sister is Xuan. He has had an opportunity to ask and have questions answered. We will schedule and proceed at his discretion. It is of note that because of abdominal pain and the C. difficile colitis May 18, 2017 through the [facility] he had a CT scan. That showed the colitis of the sigmoid colon. Also demonstrated a small umbilical hernia with fat and bilateral inguinal hernias worse on the left than the right. It demonstrated prostatic enlargement at that time. Copy: Dr. Zurdo Baxter M.D., Jadiel.Mustapha.C.S. Patient's history and physicals been reviewed. He is enjoying good health. He started his Flomax a week ago. He has not noticed any clinical change. He is having additional opportunity ask and have questions answered. He is scheduled for elective surgery. Jacob Baxter M.D., Jadiel.Mustapha.C.S.
--- NOTE | 2022-01-11 07:29 | EX.PCM.DISCH ---
Discharge Instructions Procedure General Surgery Diet Discharge Diet: Light diet - advance as tolerated (if you have questions about your diet instructions, please talk to you doctor.) Activity Discharge Activity: May Not Drive (for 3-5 days or while taking narcotic pain medicine.) May shower in (days): 1 Lifting Restrictions: 10 pounds Dressing / Incision Call your doctor if your incision/area has: Continuous Slow Oozing, Sudden Increased Bleeding, Increased Pain/ Swelling, Increased Redness and Foul Smelling Discharge Call your doctor if you observe: Fever of 101 or Higher Suture Line Care: Avoid Pulling/Pushing and Avoid Pinching/Bending Additional Dressing/Incision Instructions:: Change or remove dressing in 4 days. Leave steri-strips in place for 1 week. Follow Up Care Please Follow Up With: Jacob Baxter MD When: Call [phone] to make an appointment to be seen in about 10 days. Test Results: Test results from this visit will be discussed in further detail at your follow-up appointment, if applicable. Discharge Plan Admission Primary Reason for Your Visit: Bilateral inguinal hernias Attending Provider: Jacob Baxter Primary Care Provider: Zurdo Friend Discharge Orders/Prescriptions Prescriptions: New hydrocodone-acetaminophen 5-325 mg tablet 1 tab PO Q6H PRN (Reason: pain) 2 Days Qty: 6 RF: 0 Continued cholecalciferol (vitamin D3) 25 mcg (1,000 unit) capsule 25 mcg PO DAILY RF: 0 esomeprazole magnesium [Nexium] 20 mg capsule,delayed release(DR/EC) 20 mg PO TUSA RF: 0 atorvastatin 10 MG tablet 10 mg PO DAILY RF: 0 Probiotic Acidophilus 1.5 mg (250 million cell) Capsule 1,000 mmu cells PO DAILY RF: 0 tamsulosin [Flomax] 0.4 mg capsule 0.4 mg PO DAILY RF: 0 Referrals / Follow Up: Zurdo Friend MD [Primary Care Provider] - Disposition Disposition (needs filled in before D/C Order can be placed): Home, Self Care
[2022-01-11] MEDS: Clindamycin 900 MG/50 ML BAG 75 MG IV (07:40)
[2022-01-11] MEDS: Bupivacaine Mpf 0.5% 30 ML VIAL (08:02)
--- NOTE | 2022-01-11 09:23 | PCM.OPRPT ---
Problems Associated Problem List Diagnoses (1) Inguinal hernia bilateral, non-recurrent: Report of Operation Date of Procedure: 01/11/22 Pre-Operative Diagnosis: Bilateral inguinal hernias Post-Operative Diagnosis: Bilateral direct and indirect inguinal hernias. Umbilical hernia Surgery/Procedure Performed:: Laparoscopic bilateral inguinal herniorrhaphy with Bard 3D max extra-large mesh. Umbilical herniorrhaphy with 4.3 cm Ventralex mesh Right: Bard 3D max extra-large. [id number], reference [id number], expiry date 08/04/2026 Left: Bard 3D max extra-large.[id number], reference [id number], expiry date 08/04/[address] hernia patch. Reference [id number], lot [id number], expiry date 06/04/2023 Secure strap: Lot [id number], primary date August 2023 Description of Surgical Findings:: Timeout and informed consent was obtained. 66-year-old gentleman was taken to the operating placed on table underwent general endotracheal intubation esthesia. The abdomen sterilely prepped and draped. 900 mg clindamycin given intravenously the operatively. 0.5% Marcaine was used as a local anesthetic. A total of 30 cc was used. A infraumbilical curvilinear incision was created sharp dissection carried down through the subcutaneous tissue hernia sac was identified it was dissected free a 1.5 cm diameter defect identified holding sutures of 0 Vicryl placed varies needle inserted saline drop test performed the abdomen was insufflated with CO2 to a pressure of 10 mmHg pressure. 10 mm trocar inserted. 10 mm laparoscope inserted no evidence of any trocar injuries. Under laparoscopic visualization bilateral lower quadrant 5 Moser port sites were placed. Then under laparoscopic visualization bilateral ilioinguinal nerve blocks were performed with the Marcaine. The peritoneum superior and lateral to the internal ring was incised carried medially and this was performed eventually bilaterally. The peritoneum was completely dissected free until the right groin was completely visualized the direct indirect and femoral area completely dissected free the peritoneum nicely resolved. A direct indirect defect noted on the right. The left groin was dissected free as well there was a significant mount of fibrofatty tissue particularly in the direct defect on the left and as on the right there was both a direct and indirect defect on the left. I then placed a extra-large Bard 3D max mesh on the left it sat in place quite none nicely covering all defect areas it was secured to the pubic tubercle anteriorly and laterally with secure strap. I placed an extra-large mesh on the right it slightly overlapped the one from the left it also to had good positioning to cover direct indirect and femoral area. It also was secured medially superiorly and laterally with secure strap. Excellent coverage and positioning was achieved. The peritoneum was then approximated to itself using Hem-o-glenys clips and where needed secure strap. Complete obliteration of the mesh was achieved. I then allowed the abdomen to deflate through an antiviral valve. Inspecting the umbilical area elected to place a 4.[address] mesh because the patient had so many hernias at this setting. The mesh was secured with 0 Nurolon. The fascia was then closed with 0 Nurolon with several sutures catching the mesh in that closure. I then reinsufflated the abdomen inspected with a 530 scope demonstrating the Ventralex to be in wonderful position. Good coverage of the defect area. The abdomen was again allowed to deflate through an antiviral valve. Trochars were removed. The skin edges were approximated with interrupted 4 Monocryl subdermal stitches. Steri-Strips Telfa OpSite dressings applied. Sponge and instrument and needle counts were reported to the surgeon to be correct. Specimen umbilical hernia sac contents. Drains none. Blood loss minimal. The patient was taken to the recovery area in satisfactory addition without apparent complication Jacob Baxter M.D., F.A.C.S. Surgeon: Jacob Baxter Type of Anesthesia: General and Local Anesthesiologist: Easton Schneider
[2022-01-11 09:43] VITALS: BP 108/62; BP 139/58; PULSE 61; RESP 16; TEMP 36.7; O2SAT 97
[2022-01-11 09:49] VITALS: BP 101/65; BP 139/58; PULSE 64; RESP 16; O2SAT 97
[2022-01-11 10:00] VITALS: BP 115/66; BP 139/58; PULSE 65; RESP 16; O2SAT 96
[2022-01-11 10:10] VITALS: BP 120/76; BP 139/58; PULSE 66; RESP 16; TEMP 36.6; O2SAT 95
[2022-01-11] MEDS: Acetaminophen 325 MG Tablet 650 MG PO (10:30)
[2022-01-11 11:13] VITALS: BP 127/67; BP 139/58; PULSE 63; RESP 16; TEMP 36.3; O2SAT 97
== END 2022-01-11 11:36 | disposition home or self-care (01) ==
LOC: SDC 05:55 → AC 05:55
PROVIDERS: Anesthesiology; PCP Family Medicine; Referring Provider Surgery; Visit Provider Surgery
PROC: (CPT 49650; principal; 2022-01-11 07:40)
DX: K40.20 Bilateral inguinal hernia, without obstruction or gangrene, not specified as recurrent (principal); K42.9 Umbilical hernia without obstruction or gangrene; E78.5 Hyperlipidemia, unspecified; E03.9 Hypothyroidism, unspecified; K21.9 Gastro-esophageal reflux disease without esophagitis; Z79.899 Other long term (current) drug therapy
CPT/HCPCS: 49650; 49652; 36415; 80048; 84443; 85027; 88302; 93005; J7120; C1781; J2405

== ENCOUNTER 2022-01-14 14:05 | Emergency (ER) | payer BC, SELFPAY ==
[2022-01-14 14:06] VITALS: BP 147/66; PULSE 106; RESP 14; TEMP 36.4; O2SAT 97; BMI 22.5
--- NOTE | 2022-01-14 14:33 | EDS_ITS ---
HPI History of Present Illness Chief Complaint: Constipation Informant: patient Onset/Context/Timing Onset: Days (4) Context: Gradual Onset Timing: Continuous Quality: Fecal impaction, uncomfortable Location: Rectum Current Severity: Severe Maximum Severity: Severe Worsened by: Sitting Relieved by: Nothing Associated Symptoms Associated Symptoms: Urinary retention today, bloating Narrative Narrative: Patient had herniorrhaphy multiple areas, bilateral inguinal and umbilical, 4 days ago. He has had no bowel movement since, he has been eating bran cereal, taking stool softeners, tried a fleets enema which was unsuccessful because he is so impacted that the fluid really did not go in since there was no room according to the he tried to help him. He pulled some stool out with his fingers. He now cannot urinate and feels the need to urinate badly as well. He feels bloated. No nausea or vomiting, no fevers, no hematuria. Dr. Baxter performed the surgery, he has had no issues at the surgical sites. Patient states he has a history of chronic constipation and is prone to this anyway, he strains a lot, hence needing the herniorrhaphy that he had earlier th is week. [facility] Medical History (Updated 01/14/22 @ 15:[address] Edson Sanabria MD) Cardiology follow-up encounter Family history of coronary artery disease Gastric reflux High cholesterol History of Clostridioides difficile colitis History of hiatal hernia History of stress test Hyperlipidemia Hypothyroidism Migraine headache Non-smoker Partial tear of left Achilles tendon Wears glasses Home Medications atorvastatin 10 mg PO DAILY 05/18/17 [History Last Taken 05/15/17] cholecalciferol (vitamin D3) 25 mcg (1,000 unit) capsule 25 mcg PO DAILY 03/31/21 [History Last Taken Unknown] esomeprazole magnesium 20 mg capsule,delayed release 20 mg PO TUSA 11/26/21 [Hi story Last Taken Unknown] Probiotic Acidophilus 1,000 mmu cells PO DAILY 12/29/21 [History Last Taken Unknown] tamsulosin [Flomax] 0.4 mg PO DAILY 12/29/21 [History Last Taken 01/11/22] hydrocodone-acetaminophen 1 tab PO Q6H PRN 2 Days #6 tab 01/11/22 [Rx Last Taken Unknown] Allergy/AdvReac Type Severity Reaction Status Date / Time amoxicillin Allergy Rash Verified 01/14/22 14:05 Penicillins [PCN] Allergy unknown Verified 01/14/22 14:05 codeine AdvReac Rash Verified 01/14/22 14:05 Family History Brother CAD (coronary artery disease), Onset Age: 59 CABG Heart disease Brother CAD (coronary artery disease), Onset Age: 59 CABG Heart disease Aunt Heart disease Grandfather Cancer lung Grandmother Cancer lung Surgical History (Updated 01/14/22 @ 14:[address] Edson Sanabria MD) History of tonsillectomy History of wisdom tooth extraction S/P inguinal herniorrhaphy Social History Smoking Status: Never smoker alcohol intake: never substance use type: does not use ROS ROS ED Constitutional Constitutional ED: Denies chills or fever(s) Eyes Eyes: Denies change in vision or diplopia ENT ENT ED: Denies rhinorrhea or sore throat Cardiovascular Cardiovascular: Denies chest pain or palpitations Respiratory/Chest Respiratory/Chest: Denies cough or dyspnea Gastrointestinal Gastrointestinal: Reports as per HPI, bloating and constipation; Denies abdominal pain, diarrhea, nausea or vomiting Genitourinary Genitourinary ED: Reports other Details: Urinary retention ; Denies dysuria or hematuria Musculoskeletal Musculoskeletal: Denies back pain or neck pain Integumentary Denies abscess or rash Neurologic Neurologic: Denies headache(s), paresthesias or weakness Psychiatric Psychiatric: Denies anxiety or suicidal thoughts EXAM Physical Exam Const Vital Signs: 01/14/22 14:06 Temperature 97.5 F L Temperature Source Temporal Pulse Rate 106 H Respiratory Rate 14 Blood Pressure 147/66 H Blood Pressure Mean 93 Pulse Ox 97 Oxygen Delivery Method Room Air Positive well nourished and well developed General Appearance ED: well developed and NAD HEENT Reports moist mucous membranes normocephalic and atraumatic Eyes PERRL and EOMs intact bilaterally Neck full ROM and supple Resp normal respiratory effort and clear to auscultation bilaterally Cardio regular rate, regular rhythm and no murmurs GI non-tender GI Narrative: Mild lower abdominal distention. Several dressings from the operating room are still intact and without any drainage or surrounding erythema. Auscultation: normoactive bowel sounds Palpation: soft Rectal Exam: external hemorrhoid(s), fecal impaction and other Other Details: Small nontender nonbleeding external hemorrhoid, no thrombosed hemorrhoids ; Negative for abnormal stool or anal fissure Back/Spine no CVA tenderness General Back: other FROM Extremity normal to inspection General Extremety ED: Negative for edema, pulses abnormal or tenderness General Extremity: Negative for edema or pulses abnormal Neuro oriented x3, CN's II-XII intact bilaterally and no sensory deficits noted Sensorium / Orientation: awake and alert Motor Exam: strength 5/5 throughout Skin no rashes or lesions noted and no wounds MDM MDM MDM Narrative Medical decision making narrative: Patient was given a soapsuds enema. There is not a lot of room distal to his impaction, so it was challenging but it did result in a mild-moderate amount of stool that came out, he still having discomfort and felt like it was related to his urinary retention, which I suspect was related to his constipation. However, the patient was not able to go and feeling very uncomfortable and requested straight catheterization without a Manzano, I will have the nurses do that and repeat his soapsuds enema until he is feeling more comfortable. Discharge Plan Triage Chief Complaint: Constipation ED Provider: Edson Sanabria Dx/Rx/DC Orders Clinical Impression: Fecal impaction, Acute urinary retention Instructions: ED Fecal Impaction, Treated, ED Urinary Retention, Male Prescriptions: No Action cholecalciferol (vitamin D3) 25 mcg (1,000 unit) capsule 25 mcg PO DAILY RF: 0 esomeprazole magnesium [Nexium] 20 mg capsule,delayed release(DR/EC) 20 mg PO TUSA RF: 0 atorvastatin 10 MG tablet 10 mg PO DAILY RF: 0 Probiotic Acidophilus 1.5 mg (250 million cell) Capsule 1,000 mmu cells PO DAILY RF: 0 tamsulosin [Flomax] 0.4 mg capsule 0.4 mg PO DAILY RF: 0 hydrocodone-acetaminophen 5-325 mg tablet 1 tab PO Q6H PRN (Reason: pain) 2 Days Qty: 6 RF: 0 Primary Care Provider: Zurdo Friend Referrals: Zurdo Friend MD [Primary Care Provider] - Jacob Baxter MD [STAFF PHYSICIAN] - (as directed for postop appointment) Disposition Disposition: Home, Self Care
[2022-01-14 16:51] VITALS: BP 134/78; PULSE 78; RESP 15; TEMP 36.7; O2SAT 99
== END 2022-01-14 16:54 | disposition home or self-care (01) ==
PROVIDERS: Emergency Provider Emergency Medicine; PCP Family Medicine; Visit Provider Emergency Medicine
DX: K56.41 Fecal impaction (principal); R33.9 Retention of urine, unspecified; E78.5 Hyperlipidemia, unspecified; E03.9 Hypothyroidism, unspecified; K21.9 Gastro-esophageal reflux disease without esophagitis; Z79.899 Other long term (current) drug therapy
CPT/HCPCS: 99285; P9612

== ENCOUNTER → 2022-03-26 | Outpatient (CLI) | payer BC, SELFPAY ==
[2022-03-26 10:35] LABS: Anion Gap 6 (5-15); BUN 15 mg/dL (7-18); BUN/Creat Ratio 16.8 RATIO (10-20); Calcium,Total 8.7 mg/dL (8.5-10.1); Chloride 109 mmol/L (98-107); Cholesterol 117 mg/dL (200); EST Glomerular Filtration Rate 90 mL/min (>60); Est Glom Filt Rate - Afr Amer 109 mL/min (>60); Free T3 2.3 pg/mL (2.18-3.98); Glucose 91 mg/dL (74-106); High Density Lipoprotein 46 mg/dL; Potassium 3.9 mmol/L (3.5-5.1); Sodium Level 141 mmol/L (136-145); T4 Free Direct 0.86 ng/dL (0.76-1.46); Triglycerides 56 mg/dL; Very Low Density Lipoprotein 11 mg/dL (5-40)
== END | disposition home or self-care (01) ==
LOC: MTLAB 07:05
PROVIDERS: PCP Family Medicine; Referring Provider Family Medicine; Visit Provider Family Medicine
DX: Z00.00 Encounter for general adult medical examination without abnormal findings (principal); E03.9 Hypothyroidism, unspecified
CPT/HCPCS: 36415; 80048; 80061; 84439; 84443; 84481

== ENCOUNTER → 2022-04-30 | Outpatient (CLI) | payer BC, SELFPAY ==
--- NOTE | 2022-04-30 14:35 | ECHOD_ITS ---
Reason For Study: CAD/ASHD Procedure This was a 2D Doppler, Color Flow transthoracic echocardiogram. Technically difficult apical images. Exam performed in department. Left Ventricle Normal LV size. Left ventricular systolic function is normal. The estimated ejection fraction is 60 %. Normal diastology for age. No regional wall motion abnormalities noted. Right Ventricle Normal RV size. Normal systolic function. Atria Normal left atrium. Normal right atrium. Mitral Valve Normal mitral valve. Equivocal mitral valve prolapse. Tricuspid Valve Normal tricuspid valve. Aortic Valve Trisinus/trileaflet aortic valve. Pulmonic Valve Normal pulmonic valve. Great Vessels Normal aortic root. The pulmonary artery is normal size. Normal inferior vena cava. Pericardium/Pleural No pericardial effusion. MMode/2D Measurements & Calculations LVIDd: 5.1 cm IVSd: 0.94 cm Ao root diam: 3.4 cm LVIDs: 2.8 cm LVPWd: 1.1 cm LA dimension: 3.8 cm RVDd: 4.3 cm FS: 44.8 % LAV(MOD-bp): 62.6 ml LA A4 area: 20.0 cm2 RA A4 area: 15.6 cm2 LAV(MOD-bp) Indexed: 29.3 ml/m2 LAV(MOD-sp2): 69.2 ml LAV(MOD-sp4): 57.4 ml Time Measurements MV dec time: 0.14 sec Doppler Measurements & Calculations MV E max kostas: 94.3 cm/sec Lat Peak E' Kostas: 16.9 cm/sec Med Peak E' Kostas: 12.5 cm/sec MV A max kostas: 68.6 cm/sec E/E' lat: 5.6 E/E' med: 7.5 MV E/A: 1.4 MV V2 max: 111.2 cm/sec MV P1/2t max kostas: 111.2 cm/sec Ao V2 max: 125.0 cm/sec MV max P.9 mmHg MV P1/2t: 51.2 msec Ao max P.2 mmHg MV V2 mean: 57.4 cm/sec MV dec slope: 635.6 cm/sec2 MV mean P.6 mmHg MVA(P1/2t): 4.3 cm2 MV V2 VTI: 27.5 cm LV V1 max: 98.4 cm/sec PA V2 max: 114.1 cm/sec LV V1 max P.9 mmHg PA V2 mean: 85.4 cm/sec ECHO/Echo Complete Interpretation Summary Normal LV size. Left ventricular systolic function is normal. The estimated ejection fraction is 60 %. Equivocal mitral valve prolapse. Ordering Physician: Juan Tipton Referring Physician: Zurdo Friend Performed By: Reagan Young RCS
== END | disposition home or self-care (01) ==
LOC: CVS 14:34
PROVIDERS: PCP Family Medicine; Referring Provider Internal Medicine Cardiovascular Disease; Visit Provider Internal Medicine Cardiovascular Disease
DX: I25.10 Atherosclerotic heart disease of native coronary artery without angina pectoris (principal); E78.5 Hyperlipidemia, unspecified
CPT/HCPCS: 93306

== ENCOUNTER → 2022-09-24 | Outpatient (CLI) | payer BC, SELFPAY ==
[2022-09-24 10:50] LABS: AST(SGOT) 21 U/L (15-37); Alanine Aminotransfer ALT/SGPT 23 U/L (16-61); Albumin, Serum 3.6 g/dL (3.2-5.0); Alkaline Phosphatase 66 U/L (45-117); Anion Gap 6 (5-15); BUN 16 mg/dL (7-18); BUN/Creat Ratio 17.3 RATIO (10-20); Calcium,Total 9.1 mg/dL (8.5-10.1); Chloride 110 mmol/L (98-107); Cholesterol 117 mg/dL (200); Creatinine, Serum 0.93 mg/dL (0.70-1.30); EST Glomerular Filtration Rate 86 mL/min (>60); Est Glom Filt Rate - Afr Amer 104 mL/min (>60); Free T3 2.4 pg/mL (2.18-3.98); Globulin 3.5 g/dL (2.2-4.2); Glucose 97 mg/dL (74-106); High Density Lipoprotein 47 mg/dL; Protein, Total 7.1 g/dL (6.4-8.2); Sodium Level 141 mmol/L (136-145); T4 Free Direct 0.93 ng/dL (0.76-1.46); Triglycerides 53 mg/dL; Very Low Density Lipoprotein 11 mg/dL (5-40)
== END | disposition home or self-care (01) ==
LOC: MTLAB 07:34
PROVIDERS: PCP Family Medicine; Referring Provider Family Medicine; Visit Provider Family Medicine
DX: E03.9 Hypothyroidism, unspecified (principal); E78.00 Pure hypercholesterolemia, unspecified
CPT/HCPCS: 36415; 80053; 80061; 84439; 84443; 84481

== ENCOUNTER → 2022-10-22 | Outpatient (CLI) | payer BC, SELFPAY ==
--- NOTE | 2022-10-22 14:58 | CDU_ITS ---
Reason For Study: Diplopia Rt. Velocities/BP Lt. Velocities/BP Prox CCA 151/27 cm/sec. Prox CCA 151/30 cm/sec. Mid CCA 124/27 cm/sec. Mid CCA 111/26 cm/sec. Dist CCA 81/18 cm/sec. Dist CCA 93/23 cm/sec. Prox ICA 81/19 cm/sec. Prox ICA 86/22 cm/sec. Mid ICA 93/20 cm/sec. Mid ICA 83/29 cm/sec. Dist ICA 101/39 cm/sec. Dist ICA 105/40 cm/sec. Rt. ICA/CCA = 0.8. Lt. ICA/CCA = 0.9. Prox ECA 140/12 cm/sec. Prox ECA 101/13 cm/sec. Rt. Vert. 58/14 cm/sec. Lt. Vert. 78/23 cm/sec. Right Extracranial There is intimal thickening but no significant atherosclerotic plaque noted in the right common carotid artery. There is homogeneous, irregular atherosclerotic plaque noted in the right internal carotid artery. There is intimal thickening but no significant atherosclerotic plaque noted in the right external carotid artery. Antegrade flow is noted in the right vertebral artery. Left Extracranial There is intimal thickening but no significant atherosclerotic plaque noted in the left common carotid artery. There is heterogeneous, smooth atherosclerotic plaque noted in the left internal carotid artery. There is intimal thickening but no significant atherosclerotic plaque noted in the left external carotid artery. Antegrade flow is noted in the left vertebral artery. Procedure Carotid Duplex [id number]. This is a Carotid Duplex examination using B-mode, color flow and specral Doppler. Exam performed in department. VL/Carotid Duplex Ultrasound Interpretation Summary Minimal irregular plaque at the proximal right internal carotid artery with les s than 50% stenosis Less than 50% stenosis right external carotid artery Minimal smooth plaque at the proximal left internal carotid artery with less th an 50% stenosis Less than 50% stenosis left external carotid artery Patent and antegrade vertebral arteries bilaterally Ordering Physician: Riley Calderon Referring Physician: Zurdo Friend Performed By: Brigitte Woods RDCS, RVT
== END | disposition home or self-care (01) ==
PROVIDERS: PCP Family Medicine; Referring Provider Ophthalmology; Visit Provider Ophthalmology
DX: H53.2 Diplopia (principal)
CPT/HCPCS: 36415; 93880

== ENCOUNTER → 2023-03-01 | Outpatient (CLI) | payer MEDICARE, SELFPAY ==
[2023-03-01 11:07] LABS: Anion Gap 4 (5-15); BUN 15 mg/dL (7-18); BUN/Creat Ratio 15.8 RATIO (10-20); Calcium,Total 9.1 mg/dL (8.5-10.1); Chloride 109 mmol/L (98-107); Cholesterol 132 mg/dL (200); Creatinine, Serum 0.95 mg/dL (0.70-1.30); EST Glomerular Filtration Rate 84 mL/min (>60); Est Glom Filt Rate - Afr Amer 102 mL/min (>60); Glucose 89 mg/dL (74-106); High Density Lipoprotein 52 mg/dL; Sodium Level 141 mmol/L (136-145); Thyroid Stim Hormone (TSH) 4.18 uIU/mL (0.358-3.74); Triglycerides 51 mg/dL; Very Low Density Lipoprotein 10 mg/dL (5-40)
== END | disposition home or self-care (01) ==
LOC: MTLAB 07:21
PROVIDERS: PCP Family Medicine; Referring Provider Family Medicine; Visit Provider Family Medicine
DX: I10 Essential (primary) hypertension (principal); E03.9 Hypothyroidism, unspecified
CPT/HCPCS: 36415; 80048; 80061; 84443

== ENCOUNTER 2023-04-04 06:52 | Day surgery (SDC) | payer MEDICARE, SELFPAY ==
[2023-04-04] VITALS (7 sets, daily range): BP systolic 107–129; BP diastolic 63–69; PULSE 56–83; RESP 16–18; TEMP 36.1–36.4; O2SAT 98–100; BMI 21.2
--- NOTE | 2023-04-04 07:11 | PCM.HP.STD ---
HPI - General General Date of Admission: 04/04/23 Date of Service: 04/04/23 Chief Complaint: Screening colonoscopy HPI Narrative CHANG TALBERT, is a 68 M who presents today for screening colonoscopy. He had a colonoscopy approximately 10 years ago. There were no polyps or abnormalities found during that time. Does have a history of C. difficile days. He also carries a past medical history of mild GERD and hypercholesterolemia. At this time he is not experiencing any abdominal pain, chest pain, shortness of breath. Overall he is in very good health. [facility] Medical History (Updated 03/30/23 @ 11:38 by Abbey Whitten) Cardiology follow-up encounter Elevated blood pressure reading in office without diagnosis of hypertension Family history of coronary artery disease Gastric reflux High cholesterol History of Clostridioides difficile colitis History of echocardiogram History of hiatal hernia History of stress test History of urinary retention Hoarseness Hyperlipidemia Hypothyroidism Inguinal hernia bilateral, non-recurrent Internal impingement of right shoulder Migraine headache Non-smoker Partial tear of left Achilles tendon Right shoulder pain Umbilical hernia Wears glasses Home Medications atorvastatin 10 mg tablet 10 mg PO DAILY 05/18/17 [History Last Taken 05/15/17] cholecalciferol (vitamin D3) 25 mcg (1,000 unit) capsule 25 mcg PO DAILY 03/31/21 [History Last Taken Unknown] Lactobacillus acidophilus 1.5 mg (250 million cell) capsule (Probiotic Acidophilus) 1,000 mmu cells PO DAILY 12/29/21 [History Last Taken Unknown] omeprazole 40 mg capsule,delayed release 40 mg PO .3 TIMES WEEKLY 09/17/22 [History Last Taken Unknown] Allergy/AdvReac Type Severity Reaction Status Date / Time amoxicillin Allergy Rash Verified 03/30/23 11:30 Penicillins [PCN] Allergy Rash Verified 03/30/23 11:30 sulfamethoxazole Allergy Rash Verified 03/30/23 11:30 [From ] trimethoprim [From ] Allergy Rash Verified 03/30/23 11:30 codeine AdvReac Rash Verified 03/30/23 11:30 Family History Brother CAD (coronary artery disease), Onset Age: 59 CABG Heart disease Brother CAD (coronary artery disease), Onset Age: 59 CABG Heart disease Aunt Heart disease Grandfather Cancer lung Grandmother Cancer lung Surgical History (Updated 03/30/23 @ 11:38 by Abbey Whitten) History of bilateral inguinal hernia repair History of tonsillectomy History of wisdom tooth extraction Hx of colonoscopy Social History household members: spouse current occupational status: retired Smoking Status: Never smoker alcohol intake: never substance use type: does not use ROS Review of Systems ROS Unobtainable: other Constitutional Constitutional: Denies fatigue, fever(s), poor appetite, weight gain or weight loss ENT HEENT: Denies mouth lesions Cardiovascular Cardiovascular: Denies abdominal bloating, abdominal edema or abdominal pain Respiratory/Chest Respiratory/Chest: Denies change in mental status, change in phlegm color, chest congestion or chest tightness Gastrointestinal Gastrointestinal: Denies belching, bloating, change in bowel habits, change in stool character, chewing difficulty, coffee ground emesis, constipation, cramping, diarrhea, dyspepsia, dysphagia, early satiety, excessive flatus, fecal incontinence, heartburn, hematemesis, hematochezia, hemorrhoids, loose stools, melena, nausea, odynophagia, rectal bleeding, tenesmus, vomiting or weight changes Genitourinary Genitourinary: Denies abdominal discomfort, burning urination or itching Musculoskeletal Musculoskeletal: Reports as per HPI; Denies muscle weakness or myalgias Integumentary Integumentary: Denies jaundice Neurologic Neurologic: Denies lack of coordination or weakness Psychiatric Psychiatric: Denies confusion, depression, memory loss, mood swings, paranoia or suicidal ideation Endocrine Endocrinology: Denies systems reviewed and no addt'l complaints, except as documented Hematologic/Lymphatic Hematologic/Lymphatic: Denies anemia, easy bleeding, easy bruising or lymphadenopathy Allergic/Immunologic Allergic/Immunologic: Denies systems reviewed and no addt'l complaints, except as documented Physical Exam Const alert General Appearance: cooperative Orientation / Consciousness: oriented to person HEENT hearing grossly normal bilaterally Head and Scalp: normal to inspection Face and Sinus: face symmetric Nose: external nose normal Mouth: oral and palatal mucosa normal Eyes conjunctivae normal General Eye: normal appearance of both eyes Neck full ROM General: normal visual inspection Lymph Lymphatic: no lymphadenopathy noted Chest inspection of chest normal and palpation of chest normal Chest: symmetrical chest wall rise Resp normal respiratory effort Effort and Inspection: able to speak in complete sentences Cardio regular rate GI non-distended Percussion: normal to percussion Rectal Exam: deferred Neuro Speech: speech normal Gait (Neuro): normal gait Assessment & Plan Assessment/Plan (1) Encounter for screening for malignant neoplasm of colon: PLAN: Plan 68-year-old gentleman comes in for screening colonoscopy. He was explained alternatives, risk, benefits including not withstanding bleeding, infection, sepsis, perforation, need for emergent surgery . He will have an ASA of 2.
[2023-04-04] MEDS: Lactated Ringers 1,000 ML 15 ML IV (07:14)
--- NOTE | 2023-04-04 08:00 | COLBX_PTH ---
PATIENT: CHANG TALBERT LOC: EN U#:[id number] AGE/SX: 68/M ROOM: RE04/04/[address]: Dr. Talha Parada DO : 1955 BED: DIS: 04/04/2023 SPEC #: [id number] RECD: 04/04/23 13:53 STATUS: BRI NICHOLAS #: [id number] SAE: 04/04/23 08:[address]: Talha Parada DEPT: SURGICAL PATHOLOGY RECD BY: Rahel Pool ENTERED: 04/05/23 07:42 SP TYPE: COLON BX OTHR DR: Dr. Zurdo Friend MD Tissues: COLON BIOPSY Procedures: Surgery Specimen Level IV HEADER OPERATION: Colonoscopy with polypectomy PRE-OP DIAGNOSIS: Screening TISSUE SUBMITTED: Hepatic flexure polyp MICROSCOPIC DIAGNOSIS Hepatic flexure polyp, polypectomy: A fragment of colonic mucosa, no pathologic diagnosis. MILO:annabel 04/06/2023 MICROSCOPIC DESCRIPTION Slides are reviewed. GROSS DESCRIPTION Received in fixative is one container labeled with the patient's name and designated hepatic flexure polyp. The specimen consists of one irregular fragment of light smiley soft tissue that measures 0.3 x 0.3 x 0.1 cm. The specimen is totally submitted in one cassette. / SJ:rg 04/05/2023 TC:4 CPT: 58381
--- NOTE | 2023-04-04 08:29 | OP.CCLET_ITS ---
04/04/2023 Zurdo Friend MD [address] [place] [address] Re : Colonoscopy procedure for Sedrick Badillo Dear Dr. Friend This procedure was performed on Tuesday, April 04, 2023. My impressions and recommendations are as follows: Impressions : - Stool in the rectum. - Diverticulosis in the sigmoid colon. - Medium-sized lipoma in the ascending colon. - One 3 mm polyp at the hepatic flexure, removed with a jumbo cold forceps. Resected and retrieved. Recommendations : - Repeat colonoscopy in 5 years for surveillance. - Continue present medications. My findings are described in the full procedure note, which is enclosed. If I can be of further assistance, please feel free to contact me at . Sincerely, Talha Parada, 04/04/2023 8:28:17 AM This report has been signed electronically.
--- NOTE | 2023-04-04 08:29 | OP.COLON_ITS ---
Patient Name: Sedrick Badillo Procedure Date: 04/04/2023 7:49 AM Date of : 1955 Age: 68 Procedure: Colonoscopy Indications: Screening for colorectal malignant neoplasm Providers: Talha Parada DO Referring MD: Zurdo Friend MD Medicines: Monitored Anesthesia Care Patient Profile: This is a 68 year old male. Refer to note in patient chart for documentation of history and physical. Last Colonoscopy: more than 10 years ago. Complications: No immediate complications. Procedure: Pre-Anesthesia Assessment: - Prior to the procedure, a History and Physical was performed, and patient medications and allergies were reviewed. The patient is competent. The risks and benefits of the procedure and the sedation options and risks were discussed with the patient. All questions were answered and informed consent was obtained. Patient identification and proposed procedure were verified by the physician in the pre-procedure area. Mental Status Examination: alert and oriented. Airway Examination: normal oropharyngeal airway and neck mobility. Respiratory Examination: clear to auscultation. CV Examination: normal. Prophylactic Antibiotics: The patient does not require prophylactic antibiotics. Prior Anticoagulants: The patient has taken no anticoagulant or antiplatelet agents. ASA Grade Assessment: II - A patient with mild systemic disease. After reviewing the risks and benefits, the patient was deemed in satisfactory condition to undergo the procedure. The anesthesia plan was to use monitored anesthesia care (MAC). Immediately prior to administration of medications, the patient was re-assessed for adequacy to receive sedatives. The heart rate, respiratory rate, oxygen saturations, blood pressure, adequacy of pulmonary ventilation, and response to care were monitored throughout the procedure. The physical status of the patient was re-assessed after the procedure. After I obtained informed consent, the scope was passed under direct vision. Throughout the procedure, the patient's blood pressure, pulse, and oxygen saturations were monitored continuously. The Colonoscope was introduced through the anus and advanced to the cecum, identified by appendiceal orifice and ileocecal valve. The colonoscopy was performed without difficulty. The patient tolerated the procedure well. The quality of the bowel preparation was fair except the rectum was poor. The ileocecal valve, appendiceal orifice, and rectum were photographed. Scope In: 8:00:53 AM Scope Withdrawal Time 0 hours 12 minutes 48 seconds Scope Out: 8:22:01 AM Total Procedure Duration Time 0 hours 21 minutes 8 seconds Findings: The perianal and digital rectal examinations were normal. Semi-solid solid stool was found in the rectum. A few small-mouthed diverticula were found in the sigmoid colon. There was a medium-sized lipoma, in the ascending colon. A 3 mm polyp was found in the hepatic flexure. The polyp was sessile. The polyp was removed with a jumbo cold forceps. Resection and retrieval were complete. Verification of patient identification for the specimen was done. Estimated blood loss was minimal. Impression: - Stool in the rectum. - Diverticulosis in the sigmoid colon. - Medium-sized lipoma in the ascending colon. - One 3 mm polyp at the hepatic flexure, removed with a jumbo cold forceps. Resected and retrieved. Recommendation: - Repeat colonoscopy in 5 years for surveillance. - Continue present medications. Procedure Code(s): --- Professional --- 53709, Colonoscopy, flexible; with biopsy, single or multiple CPT copyright 2021 [employer]. All rights reserved. The codes documented in this report are preliminary and upon targeting acquisition officer review may be revised to meet current compliance requirements. Talha Parada DO 04/04/2023 8:28:17 AM This report has been signed electronically. Number of Addenda: 0 Note Initiated On: 04/04/2023 7:49 AM
== END 2023-04-04 09:06 | disposition home or self-care (01) ==
LOC: EN 06:52 → AC 07:01
PROVIDERS: PCP Family Medicine; Referring Provider Family Medicine; Visit Provider Internal Medicine Gastroenterology
PROC: 0DJD8ZZ Inspection of Lower Intestinal Tract, Via Natural or Artificial Opening Endoscopic (ICD-10-PCS; CPT 45378; principal; 2023-04-04 07:55)
DX: Z12.11 Encounter for screening for malignant neoplasm of colon (principal); K63.5 Polyp of colon; E78.00 Pure hypercholesterolemia, unspecified; K21.9 Gastro-esophageal reflux disease without esophagitis; K57.30 Diverticulosis of large intestine without perforation or abscess without bleeding; D17.5 Benign lipomatous neoplasm of intra-abdominal organs; Z79.899 Other long term (current) drug therapy; Z87.19 Personal history of other diseases of the digestive system
CPT/HCPCS: 45380; 88305; J7120; J2405

== ENCOUNTER → 2023-05-06 | Outpatient (CLI) | payer MEDICARE, SELFPAY ==
--- NOTE | 2023-05-06 13:25 | MRI_ITS ---
STUDY: MRI RIGHT SHOULDER REASON FOR EXAM: Male, 68 years old. Pain, limited movement with sharp pain x 2 years, no known injury. TECHNIQUE: Standardized fat and water weighted pulse sequences were obtained in all 3 orthogonal planes. COMPARISON: Right shoulder radiographs dated 05/21/2022. FINDINGS: There is mild supraspinatus, infraspinatus, and subscapularis tendinosis without a full-thickness tear. Normal teres minor tendon. Normal supraspinatus muscle. Normal infraspinatus muscle. Normal subscapularis muscle. Normal teres minor muscle. Normal glenohumeral articulation. Normal humeral head and visualized proximal humerus. Normal biceps labral complex. Normal intracapsular long biceps tendon. Normal labrum. Normal capsulo-ligamentous complex. Normal rotator interval. There is mild acromioclavicular arthrosis. There is a Type II morphology (curved), with a neutral orientation. There is trace subacromial-subdeltoid bursal fluid. Normal visualized coracohumeral and coracoacromial ligaments. Normal quadrilateral space. Normal axillary space. Normal deltoid muscle. Normal trapezius muscle. MRI/Upper Ext Joint Only(Routine) IMPRESSION: Mild supraspinatus, infraspinatus, and subscapularis tendinosis without a full-thickness rotator cuff tear. Mild acromioclavicular arthrosis. Minimal subacromial-subdeltoid bursitis. Electronically Signed: Nj Jameson MD at 16:06 EDT ,
== END | disposition home or self-care (01) ==
LOC: MRI 13:17
PROVIDERS: PCP Family Medicine; Visit Provider Orthopaedic Surgery Sports Medicine
DX: M75.41 Impingement syndrome of right shoulder (principal)
CPT/HCPCS: 73221

== ENCOUNTER → 2023-08-12 | Outpatient (CLI) | payer MEDICARE, SELFPAY ==
--- OUTSIDE RECORDS SUMMARY | 2023-08-12 07:07 | XMS RPT_ITS | CCD ---
Author Name Unknown Address [address] [place] [address] Organization [facility] Care Team Providers Care [employer] Manager Name Role Phone Riri Mora Unavailable MD Saeed, Dewitt S Unavailable Amy Mckeon Unavailable Unavailable Romelia LUTZ, Quyen Luciano Unavailable Unavailable Riri Mora Unavailable Allergies Allergy Classification Reported Allergen(s) Allergy Type Date of Onset Reaction(s) Facility (5 sources) codeine drug allergy 02-15-2011 [facility] Work Phone: (5 sources) penicillin drug allergy 02-15-2011 Rash [facility] Work Phone: Medications Completed/Discontinued Medications Medication Drug Class(es) Dates Sig (Normalized) Sig (Original) aspirin 81 mg oral tablet (10 sources) Platelet Aggregation Inhibitor, Nonsteroidal Anti-inflammatory Drug Start: 02-15-2011 take 1 tablet by mouth once daily ASPIRIN 81 MG TABS One tablet by mouth daily ASPIRIN [id number] Rocío Mishra Problems Active Problems Problem Classification Problem Date Documented Da te Episodic/Chronic Disorders of lipid metabolism (5 sources) Hyperlipidemia; Translations: [Hyperlipidemia, unspecified] Onset: 02-06-2013 02-06-2013 Chronic Unclassified (12 sources) Long-term drug therapy; Translations: [Long-term (current) use of other medications] Onset: 02-13-2013 Resolved: 04-23-2015 02-13-2013 Past or Other Problems Problem Classification Problem Date Documented Da te Episodic/Chronic Fracture of upper limb (5 sources) Fracture of clavicle; Translations: [Fracture of unspecified part of left clavicle] 05-25-2012 Episodic Other aftercare (3 sources) Long-term (current) use of other medications; Translations: [Other mcfp (current) drug therapy] Onset: 02-13-2013 Resolved: 04-23-2015 02-13-2013 Episodic Other connective tissue disease (5 sources) Achilles tendinitis; Translations: [Achilles tendinitis, unspecified leg] Onset: 04-08-2015 04-08-2015 Episodic Other non-traumatic joint disorders (5 sources) Pain in unspecified shoulder; Translations: [Pain in unspecified shoulder] 05-25-2012 Episodic Residual codes; unclassified (8 sources) Family history of ischemic heart disease and other diseases of the circulatory system; Translations: [Family history of ischemic heart disease] Onset: 02-15-2011 02-19-2014 Episodic Residual codes; unclassified (2 sources) Family history of ischemic heart disease; Translations: [Family history of ischemic heart disease and other diseases of the circulatory system] Onset: 02-15-2011 02-15-2011 Episodic Spondylosis; intervertebral disc disorders; other back problems (5 sources) Neck pain; Translations: [Cervicalgia] Onset: 07-12-2013 07-12-2013 Episodic Sprains and strains (5 sources) Strain of neck muscle; Translations: [Strain of muscle, fascia and tendon at neck level] Onset: 05-17-2013 05-18-2013 Episodic Results Test Name Value Interpretation Reference Range Facil ity Vital Signs Date Time Vital Sign Value Performing Clinician Rajiv hoover 03-08-2017 10:59-0400 BMI (Body Mass Index) 22.34 kg/m2 Riri [facility] Work Phone: 03-08-2017 10:59-0400 BP Diastolic 64 mm[Hg] Riri [facility] [employer] [facility] Work Phone: 03-08-2017 10:59-0400 BP Systolic 110 mm[Hg] Riri [facility] Work Phone: 03-08-2017 10:59-0400 Height 194.31 cm Riri Roman [facility] Work Phone: 03-08-2017 10:59-0400 Pulse (Heart Rate) 68 /min Riri Roman [facility] [employer] [facility] Work Phone: 03-08-2017 10:59-0400 Respiratory Rate 20 /min [facility] Work Phone: 03-08-2017 10:59-0400 Weight 84.37 kg Riri Mora [facility] Work Phone: 02-24-2016 11:55-0400 BMI (Body Mass Index) 22.04 kg/m2 Quyen León [facility] Work Phone: 02-24-2016 11:55-0400 BP Diastolic 50 mm[Hg] Quyen León RN [facility] Work Phone: 02-24-2016 11:55-0400 BP Systolic 100 mm[Hg] Quyen León RN [facility] Work Phone: 02-24-2016 11:55-0400 BSA (Body Surface Area) 2.15 m2 Quyen León RN [facility] Work Phone: 02-24-2016 11:55-0400 Pulse (Heart Rate) 60 /min Quyen León RN [facility] Work Phone: 02-24-2016 11:55-0400 Respiratory Rate 20 /min Quyen León RN [facility] Work Phone: 02-24-2016 11:55-0400 Weight 83.24 kg Quyen León RN [facility] Work Phone: 02-18-2015 12:24-0400 Heart rate 62 /min Quyen León RN [facility] Work Phone: 03-01-2012 11:18-0400 Height 194.31 cm Quyen León RN [facility] Work Phone: Procedures Date Procedure Procedure Detail Performing Clinician Start: 04-18-2017 End: 06-09-2017 *Hepatic Function Panel Harsha Morales Start: 04-18-2017 End: 06-09-2017 Lipid 1996 panel - Serum or Plasma Juan Tipton MD Start: 03-08-2017 End: 06-09-2017 *CRPHS - C-reactive protein, high sensitivity (hsCRP) Juan Tipton MD Start: 03-08-2017 End: 03-08-2017 NATALIE Tipton MD Start: 03-08-2017 End: 03-08-2017 Follow Up Appt 1 year Juan Tipton MD Start: 03-08-2017 End: 03-08-2017 NATALIE Tipton MD Start: 03-08-2017 End: 03-08-2017 Follow Up Appt 1 year Juan Tipton MD Start: 09-06-2016 End: 10-15-2016 *Hepatic Function Panel Zurdo Bolton MD Start: 09-06-2016 End: 10-15-2016 Lipid 1996 panel - Serum or Plasma Zurdo Bolton MD Start: 09-06-2016 End: 10-15-2016 *Hepatic Function Panel Zurdo Bolton MD Start: 09-06-2016 End: 10-15-2016 Lipid panel [AGGREGATE] Zurdo Bolton MD Start: 02-24-2016 End: 03-05-2016 *Hepatic Function Panel Harsha Morales Start: 02-24-2016 End: 03-08-2017 NATALIE Tipton MD Start: 02-24-2016 End: 03-08-2017 Follow Up Appt 1 year Juan Tipton MD Start: 02-24-2016 End: 03-05-2016 Lipid 1996 panel - Serum or Plasma Juan Tipton MD Start: 02-24-2016 End: 03-05-2016 *Hepatic Function Panel Harsha Morales Start: 02-24-2016 End: 03-08-2017 FAMILY [employer]FARE SOCIAL WORK PROFESSOR Juan Tipton MD Start: 02-24-2016 End: 03-08-2017 Follow Up Appt 1 year Juan Tipton MD Start: 02-24-2016 End: 03-05-2016 Lipid panel [AGGREGATE] Harsha Morales Start: 04-14-2015 End: 04-23-2015 *Hepatic Function Panel Harsha Morales Start: 04-14-2015 End: 04-23-2015 Lipid 1996 panel - Serum or Plasma Juan Tipton MD Start: 04-14-2015 End: 04-23-2015 *Hepatic Function Panel Harsha Morales Start: 04-14-2015 End: 04-23-2015 Lipid panel [AGGREGATE] Harsha Morales Start: 02-18-2015 End: 03-03-2015 Cardiovascular stress test using treadmill Juan Tipton MD Start: 02-18-2015 End: 02-18-2015 FAMILY WELFARE SOCIAL WORK PROFESSOR Juan Tipton MD Start: 02-18-2015 End: 02-19-2015 Documentation of current medications Juan Tipton MD Start: 02-18-2015 End: 03-03-2015 Ecg routine ecg w/least 12 lds w/i&r Juan Tipton MD Start: 02-18-2015 End: 02-18-2015 Follow Up Appt 1 year Juan Tipton MD Start: 02-18-2015 End: 03-03-2015 Cardiovascular stress test using treadmill Juan Tipton MD Start: 02-18-2015 End: 02-18-2015 NATALIE Tipton MD Start: 02-18-2015 End: 02-19-2015 Documentation of current medications Juan Tipton MD Start: 02-18-2015 End: 03-03-2015 Electrocardiogram, complete Juan Cho i, MD Start: 02-18-2015 End: 02-18-2015 Follow Up Appt 1 year Juan Tipton MD Start: 09-08-2014 End: 10-10-2014 *Hepatic Function Panel June alfred PA-C Work Phone: Start: 09-08-2014 End: 10-10-2014 Lipid 1996 panel - Serum or Plasma June Slade PA-C Work Phone: Start: 09-08-2014 End: 10-10-2014 *Hepatic Function Panel June alfrde PA-C Work Phone: Start: 09-08-2014 End: 10-10-2014 Lipid panel [AGGREGATE] Jnue alfred PA-C Work Phone: Start: 02-19-2014 End: 03-15-2014 *Hepatic Function Panel Harsha Morales Start: 02-19-2014 End: 02-19-2014 NATALIE Tipton MD Start: 02-19-2014 End: 02-19-2014 Follow Up Appt 1 year Juan Tipton MD Start: 02-19-2014 End: 03-15-2014 Lipid 1996 panel - Serum or Plasma Juan Tipton MD Start: 02-19-2014 End: 03-15-2014 *Hepatic Function Panel Harsha Morales Start: 02-19-2014 End: 02-19-2014 NATALIE Tipton MD Start: 02-19-2014 End: 02-19-2014 Follow Up Appt 1 year Juan Tipton MD Start: 02-19-2014 End: 03-15-2014 Lipid panel [AGGREGATE] Harsha Morales Start: 08-08-2013 End: 03-16-2014 *Hepatic Function Panel Harsha Morales Start: 08-08-2013 End: 03-16-2014 Lipid 1996 panel - Serum or Plasma Juan Tipton MD Start: 08-08-2013 End: 03-16-2014 *Hepatic Function Panel Harsha Morales Start: 08-08-2013 End: 03-16-2014 Lipid panel [AGGREGATE] Harsha Morales Start: 02-06-2013 End: 02-09-2013 *Hepatic Function Panel Harsha Morales Start: 02-06-2013 End: 02-06-2013 NATALIE Tipton MD Start: 02-06-2013 End: 02-06-2013 Follow Up Appt 1 year Juan Tipton MD Start: 02-06-2013 End: 02-09-2013 Lipid 1996 panel - Serum or Plasma Juan Tipton MD Start: 02-06-2013 End: 02-09-2013 *Hepatic Function Panel Harsha Morales Start: 02-06-2013 End: 02-06-2013 NATALIE Tipton MD Start: 02-06-2013 End: 02-06-2013 Follow Up Appt 1 year Juan Tipton MD Start: 02-06-2013 End: 02-09-2013 Lipid panel [AGGREGATE] Harsha Morales Start: 03-01-2012 End: 03-01-2012 Follow Up Appt 1 year Juan Tipton MD Start: 03-01-2012 End: 03-01-2012 Follow Up Appt 1 year Juan Tipton MD Plan of Treatment Date Care Activity Detail Author Start: 03-09-2018 End: 03-09-2018 Appointment Appointment [facility] Work Phone: Start: 12-07-2017 End: 06-10-2017 *Hepatic Function Panel *Hepatic Function Panel [facility] Work Phone: Start: 12-07-2017 End: 06-10-2017 Lipid panel [AGGREGATE] *Lipid Profile CC PCP [facility] Work Phone: Start: 04-18-2017 End: 06-09-2017 *Hepatic Function Panel *Hepatic Function Panel [facility] Work Phone: Start: 04-18-2017 End: 06-09-2017 Lipid panel [AGGREGATE] *Lipid Profile CC PCP [facility] Work Phone: Start: 04-18-2017 End: 10-21-2016 *Hepatic Function Panel *Hepatic Function Panel [facility] Work Phone: Start: 04-18-2017 End: 10-21-2016 Lipid panel [AGGREGATE] *Lipid Profile CC PCP [facility] Work Phone: Start: 03-08-2017 End: 06-09-2017 *CRPHS - C-reactive protein, high sensitivity (hsCRP) *CRPHS - C-reactive protein, high sensitivity (hsCRP) [facility] Work Phone: Start: 03-08-2017 End: 03-08-2017 FAMILY [employer] SOCIAL WORK PROFESSOR FAMILY [employer] SOCIAL WORK PROFESSOR [facility] Work Phone: Start: 03-08-2017 End: 03-08-2017 Follow Up Appt 1 year Follow Up Appt 1 year [facility] Work Phone: Start: 03-08-2017 End: 03-08-2017 Appointment Appointment [facility] Work Phone: Start: 03-08-2017 End: 03-08-2017 *CRPHS - C-reactive protein, high sensitivity (hsCRP) *CRPHS - C-reactive protein, high sensitivity (hsCRP) [facility] Work Phone: Start: 03-08-2017 End: 03-08-2017 *Hepatic Function Panel *Hepatic Function Panel [facility] Work Phone: Start: 03-08-2017 End: 03-08-2017 FAMILY W[employer]FARE SOCIAL WORK PROFESSOR FAMILY W[employer] SOCIAL WORK PROFESSOR [facility] Work Phone: Start: 03-08-2017 End: 03-08-2017 Follow Up Appt 1 year Follow Up Appt 1 year [facility] Work Phone: Start: 03-08-2017 End: 03-08-2017 Lipid panel [AGGREGATE] *Lipid Profile CC PCP [facility] Work Phone: Start: 09-06-2016 End: 10-15-2016 *Hepatic Function Panel *Hepatic Function Panel [facility] Work Phone: Start: 09-06-2016 End: 10-15-2016 Lipid panel [AGGREGATE] *Lipid Profile CC PCP [facility] Work Phone: Start: 09-06-2016 End: 10-15-2016 *Hepatic Function Panel *Hepatic Function Panel [facility] Work Phone: Start: 09-06-2016 End: 10-15-2016 Lipid panel [AGGREGATE] *Lipid Profile CC PCP [facility] Work Phone: Start: 02-24-2016 End: 03-05-2016 *Hepatic Function Panel *Hepatic Function Panel [facility] Work Phone: Start: 02-24-2016 End: 03-08-2017 FAMILY W[employer]FARE SOCIAL WORK PROFESSOR FAMILY W[employer] SOCIAL WORK PROFESSOR [facility] Work Phone: Start: 02-24-2016 End: 03-08-2017 Follow Up Appt 1 year Follow Up Appt 1 year [facility] Work Phone: Start: 02-24-2016 End: 03-05-2016 Lipid panel [AGGREGATE] *Lipid Profile CC PCP [facility] Work Phone: Start: 02-24-2016 End: 03-05-2016 *Hepatic Function Panel *Hepatic Function Panel [facility] Work Phone: Start: 02-24-2016 End: 03-08-2017 FAMILY W[employer] SOCIAL WORK PROFESSOR FAMILY W[employer] SOCIAL WORK PROFESSOR [facility] Work Phone: Start: 02-24-2016 End: 03-08-2017 Follow Up Appt 1 year Follow Up Appt 1 year [facility] Work Phone: Start: 02-24-2016 End: 03-05-2016 Lipid panel [AGGREGATE] *Lipid Profile CC PCP [facility] Work Phone: Start: 04-16-2015 End: 04-16-2015 Physical Therapy General Physical Therapy [facility], [address] [place] [address], [id number] [facility] Work Phone: Start: 04-16-2015 End: 04-16-2015 Physical Therapy General Physical Therapy [facility], [address] [place] [address], [id number] [facility] Work Phone: Start: 04-14-2015 End: 04-23-2015 *Hepatic Function Panel *Hepatic Function Panel [facility] Work Phone: Start: 04-14-2015 End: 04-23-2015 Lipid panel [AGGREGATE] *Lipid Profile CC PCP [facility] Work Phone: Start: 04-14-2015 End: 04-23-2015 *Hepatic Function Panel *Hepatic Function Panel [facility] Work Phone: Start: 04-14-2015 End: 04-23-2015 Lipid panel [AGGREGATE] *Lipid Profile CC PCP [facility] Work Phone: Start: 02-18-2015 End: 02-18-2015 Cardiovascular stress test using treadmill Treadmill stress test (no imaging) [employer] [facility] Work Phone: Start: 02-18-2015 End: 02-18-2015 FAMILY [employer] SOCIAL WORK PROFESSOR FAMILY [employer] SOCIAL WORK PROFESSOR [employer] [facility] Work Phone: Start: 02-18-2015 End: 03-03-2015 Ecg routine ecg w/least 12 lds w/i&r EKG (In office) [facility] Work Phone: Start: 02-18-2015 End: 02-18-2015 Follow Up Appt 1 year Follow Up Appt 1 year [facility] Work Phone: Start: 02-18-2015 End: 02-18-2015 Cardiovascular stress test using treadmill Treadmill stress test (no imaging) [facility] Work Phone: Start: 02-18-2015 End: 02-18-2015 FAMILY [employer]FARE SOCIAL WORK PROFESSOR FAMILY [employer] SOCIAL WORK PROFESSOR [employer] [facility] Work Phone: Start: 02-18-2015 End: 03-03-2015 Electrocardiogram, complete EKG (In office) [employer] [facility] Work Phone: Start: 02-18-2015 End: 02-18-2015 Follow Up Appt 1 year Follow Up Appt 1 year [employer] [facility] Work Phone: Start: 09-08-2014 End: 10-10-2014 *Hepatic Function Panel *Hepatic Function Panel [employer] [facility] Work Phone: Start: 09-08-2014 End: 10-10-2014 Lipid panel [AGGREGATE] *Lipid Profile CC PCP [facility] Work Phone: Start: 09-08-2014 End: 10-10-2014 *Hepatic Function Panel *Hepatic Function Panel [facility] Work Phone: Start: 09-08-2014 End: 10-10-2014 Lipid panel [AGGREGATE] *Lipid Profile CC PCP [facility] Work Phone: Start: 02-19-2014 End: 03-15-2014 *Hepatic Function Panel *Hepatic Function Panel [facility] Work Phone: Start: 02-19-2014 End: 02-19-2014 FAMILY WELFARE SOCIAL WORK PROFESSOR FAMILY [employer] SOCIAL WORK PROFESSOR [facility] Work Phone: Start: 02-19-2014 End: 02-19-2014 Follow Up Appt 1 year Follow Up Appt 1 year [facility] Work Phone: Start: 02-19-2014 End: 03-15-2014 Lipid panel [AGGREGATE] *Lipid Profile CC PCP [facility] Work Phone: Start: 02-19-2014 End: 03-15-2014 *Hepatic Function Panel *Hepatic Function Panel [facility] Work Phone: Start: 02-19-2014 End: 02-19-2014 FAMILY WELFARE SOCIAL WORK PROFESSOR FAMILY W[employer] SOCIAL WORK PROFESSOR [facility] Work Phone: Start: 02-19-2014 End: 02-19-2014 Follow Up Appt 1 year Follow Up Appt 1 year [facility] Work Phone: Start: 02-19-2014 End: 03-15-2014 Lipid panel [AGGREGATE] *Lipid Profile CC PCP [facility] Work Phone: Start: 08-08-2013 End: 03-16-2014 *Hepatic Function Panel *Hepatic Function Panel [facility] Work Phone: Start: 08-08-2013 End: 03-16-2014 Lipid panel [AGGREGATE] *Lipid Profile CC PCP [facility] Work Phone: Start: 08-08-2013 End: 03-16-2014 *Hepatic Function Panel *Hepatic Function Panel [facility] Work Phone: Start: 08-08-2013 End: 03-16-2014 Lipid panel [AGGREGATE] *Lipid Profile CC PCP [facility] Work Phone: Start: 02-06-2013 End: 02-09-2013 *Hepatic Function Panel *Hepatic Function Panel [facility] Work Phone: Start: 02-06-2013 End: 02-06-2013 FAMILY W[employer] SOCIAL WORK PROFESSOR FAMILY W[employer] SOCIAL WORK PROFESSOR [facility] Work Phone: Start: 02-06-2013 End: 02-06-2013 Follow Up Appt 1 year Follow Up Appt 1 year [facility] Work Phone: Start: 02-06-2013 End: 02-09-2013 Lipid panel [AGGREGATE] *Lipid Profile CC PCP [facility] Work Phone: Start: 02-06-2013 End: 02-09-2013 *Hepatic Function Panel *Hepatic Function Panel [facility] Work Phone: Start: 02-06-2013 End: 02-06-2013 FAMILY W[employer] SOCIAL WORK PROFESSOR FAMILY WELF[employer] SOCIAL WORK PROFESSOR [facility] Work Phone: Start: 02-06-2013 End: 02-06-2013 Follow Up Appt 1 year Follow Up Appt 1 year [facility] Work Phone: Start: 02-06-2013 End: 02-09-2013 Lipid panel [AGGREGATE] *Lipid Profile CC PCP [facility] Work Phone: Start: 03-01-2012 End: 03-01-2012 Follow Up Appt 1 year Follow Up Appt 1 year [facility] Work Phone: Start: 03-01-2012 End: 03-01-2012 Follow Up Appt 1 year Follow Up Appt 1 year [facility] Work Phone: Patient Education HYPERLIPIDEMIA , HEART%20HEALTHY%20DIET, CHOLESTEROL%20AND%20YOUR% 20HEALTH, HYPERLIPIDEMIA [facility] Work Phone: Additional Source Comments FOR RECORDS PERTAINING TO PATIENTS WHO ARE OR HAVE BEEN ENROLLED IN A CHEMICAL DEPENDENCY/SUBSTANCEABUSE PROGRAM, SOME INFORMATION MAY BE OMITTED. This clinical summary was aggregated from multiple sources. Caution should be exercised in using it in the provision of clinical care. This summary normalizes information from multiple sources, and as a consequence, information in this document may materially change the coding, format and clinical context of patient data. In addition, data may be omitted in some cases. CLINICAL DECISIONS SHOULD BE BASED ON THE PRIMARY CLINICAL RECORDS. [facility]. provides no warranty or guarantee of the accuracy or completeness of information in this document.
--- OUTSIDE RECORDS SUMMARY | 2023-08-12 09:18 | XMS RPT_ITS | CCD ---
Author Name Unknown Address [address] [place] [address] Organization [facility] Care Team Providers Care Change Management Consultant Name Role Phone Riri Mora Unavailable MD Saeed, [place] S Unavailable Amy Mckeon Unavailable Unavailable Romelia LUTZ, Quyen Luciano Unavailable Unavailable Riri Mora Unavailable Allergies Allergy Classification Reported Allergen(s) Allergy Type Date of Onset Reaction(s) Facility (5 sources) codeine drug allergy 02-15-2011 [facility] Work Phone: (5 sources) penicillin drug allergy 02-15-2011 Rash [facility] Work Phone: Medications Completed/Discontinued Medications Medication Drug Class(es) Dates Sig (Normalized) Sig (Original) aspirin 81 mg oral tablet (10 sources) Platelet Aggregation Inhibitor, Nonsteroidal Anti-inflammatory Drug Start: 02-15-2011 take 1 tablet by mouth once daily ASPIRIN 81 MG TABS One tablet by mouth daily ASPIRIN [id number] Rocío Mishra Problems Active Problems Problem Classification [...] (current) use of other medications; Translations: [Other group home (current) drug therapy] Onset: 02-13-2013 Resolved: 04-23-2015 [...] (Body Mass Index) 22.34 kg/m2 Riri Roman [facility] Work Phone: 03-08-2017 10:59-0400 BP Diastolic 64 mm[Hg] Riri Roman [facility] Work Phone: 03-08-2017 10:59-0400 BP Systolic 110 mm[Hg] Riri Roman [facility] Work Phone: 03-08-2017 10:59-0400 Height 194.31 cm Riri Roman [facility] Work Phone: 03-08-2017 10:59-0400 Pulse (Heart Rate) 68 /min Riri Roman [facility] Work Phone: 03-08-2017 10:59-0400 Respiratory Rate 20 /min [facility] Work Phone: 03-08-2017 10:59-0400 Weight 84.37 kg Riri Mora [facility] Work Phone: 02-24-2016 11:55-0400 BMI (Body Mass Index) 22.04 kg/m2 Quyen León RN [facility] Work Phone: 02-24-2016 11:55-0400 BP Diastolic 50 mm[Hg] Quyen León RN [facility] Work Phone: 02-24-2016 11:55-0400 BP Systolic 100 mm[Hg] Quyen León RN [facility] Work Phone: 02-24-2016 11:55-0400 BSA (Body Surface Area) 2.15 m2 Quyen León RN [facility] Work Phone: 02-24-2016 11:55-0400 Pulse (Heart Rate) 60 /min Quyen León RN [facility] Work Phone: 02-24-2016 11:55-0400 Respiratory Rate 20 /min Quyen León RN [facility] Work Phone: 02-24-2016 11:55-0400 Weight 83.24 kg Quyen León RN [facility] Work Phone: 02-18-2015 12:24-0400 Heart [...] Panel Harsha Morales Start: 02-24-2016 End: 03-08-2017 COMMUNICATIONS REPRESENTATIVE Juan Tipton MD Start: 02-24-2016 End: 03-08-2017 [...] Juan Tipton MD Start: 02-18-2015 End: 02-18-2015 COMMUNICATIONS REPRESENTATIVE Juan Tipton MD Start: 02-18-2015 End: 02-19-2015 [...] Start: 09-08-2014 End: 10-10-2014 Lipid panel [AGGREGATE] June alfred PA-C Work Phone: Start: 02-19-2014 End: 03-15-2014 *Hepatic Function Panel Harsha Morales Start: 02-19-2014 End: 02-19-2014 NATALIE Tipton MD Start: 02-19-2014 End: 02-19-2014 Follow Up Appt 1 year Juan Titpon MD Start: 02-19-2014 End: 03-15-2014 Lipid 1996 [...] Author Start: 03-09-2018 End: 03-09-2018 Appointment Appointment [facility] Work Phone: Start: 12-07-2017 End: 06-10-2017 *Hepatic Function Panel *Hepatic Function Panel [facility] Work Phone: Start: 12-07-2017 End: 06-10-2017 Lipid panel [AGGREGATE] *Lipid Profile CC PCP [facility] Work Phone: Start: 04-18-2017 End: 06-09-2017 *Hepatic Function Panel *Hepatic Function Panel [facility] Work Phone: Start: 04-18-2017 End: 06-09-2017 Lipid panel [AGGREGATE] *Lipid Profile CC PCP [facility] Work Phone: Start: 04-18-2017 End: 10-21-2016 *Hepatic Function Panel *Hepatic Function Panel [facility] Work Phone: Start: 04-18-2017 End: 10-21-2016 Lipid panel [AGGREGATE] *Lipid Profile CC PCP [facility] Work Phone: Start: 03-08-2017 End: 06-09-2017 *CRPHS - C-reactive protein, high sensitivity (hsCRP) *CRPHS - C-reactive protein, high sensitivity (hsCRP) [facility] Work Phone: Start: 03-08-2017 End: 03-08-2017 COMMUNICATIONS REPRESENTATIVE COMMUNICATIONS REPRESENTATIVE [facility] Work Phone: Start: 03-08-2017 End: 03-08-2017 Follow Up Appt 1 year Follow Up Appt 1 year [facility] Work Phone: Start: 03-08-2017 End: 03-08-2017 Appointment Appointment [facility] Work Phone: Start: 03-08-2017 End: 03-08-2017 *CRPHS - C-reactive protein, high sensitivity (hsCRP) *CRPHS - C-reactive protein, high sensitivity (hsCRP) [facility] Work Phone: Start: 03-08-2017 End: 03-08-2017 *Hepatic Function Panel *Hepatic Function Panel [facility] Work Phone: Start: 03-08-2017 End: 03-08-2017 COMMUNICATIONS REPRESENTATIVE COMMUNICATIONS REPRESENTATIVE [facility] Work Phone: Start: 03-08-2017 End: 03-08-2017 Follow Up Appt 1 year Follow Up Appt 1 year [facility] Work Phone: Start: 03-08-2017 End: 03-08-2017 Lipid panel [AGGREGATE] *Lipid Profile CC PCP [facility] Work Phone: Start: 09-06-2016 End: 10-15-2016 *Hepatic Function Panel *Hepatic Function Panel [facility] Work Phone: Start: 09-06-2016 End: 10-15-2016 Lipid panel [AGGREGATE] *Lipid Profile CC PCP [facility] Work Phone: Start: 09-06-2016 End: 10-15-2016 *Hepatic Function Panel *Hepatic Function Panel [facility] Work Phone: Start: 09-06-2016 End: 10-15-2016 Lipid panel [AGGREGATE] *Lipid Profile CC PCP [facility] Work Phone: Start: 02-24-2016 End: 03-05-2016 *Hepatic Function Panel *Hepatic Function Panel [facility] Work Phone: Start: 02-24-2016 End: 03-08-2017 COMMUNICATIONS REPRESENTATIVE COMMUNICATIONS REPRESENTATIVE [facility] Work Phone: Start: 02-24-2016 End: 03-08-2017 Follow Up Appt 1 year Follow Up Appt 1 year [facility] Work Phone: Start: 02-24-2016 End: 03-05-2016 Lipid panel [AGGREGATE] *Lipid Profile CC PCP [facility] Work Phone: Start: 02-24-2016 End: 03-05-2016 *Hepatic Function Panel *Hepatic Function Panel [facility] Work Phone: Start: 02-24-2016 End: 03-08-2017 COMMUNICATIONS REPRESENTATIVE COMMUNICATIONS REPRESENTATIVE [facility] Work Phone: Start: 02-24-2016 End: 03-08-2017 Follow Up Appt 1 year Follow Up Appt 1 year [facility] Work Phone: Start: 02-24-2016 End: 03-05-2016 Lipid panel [AGGREGATE] *Lipid Profile CC PCP [facility] Work Phone: Start: 04-16-2015 End: 04-16-2015 Physical Therapy General Physical Therapy [facility], [address] [place] [address], [id number] [facility] Work Phone: Start: 04-16-2015 End: 04-16-2015 Physical Therapy General Physical Therapy [facility], [address] [place] [address], [id number] [facility] Work Phone: Start: 04-14-2015 End: 04-23-2015 *Hepatic Function Panel *Hepatic Function Panel [facility] Work Phone: Start: 04-14-2015 End: 04-23-2015 Lipid panel [AGGREGATE] *Lipid Profile CC PCP [facility] Work Phone: Start: 04-14-2015 End: 04-23-2015 *Hepatic Function Panel *Hepatic Function Panel [facility] Work Phone: Start: 04-14-2015 End: 04-23-2015 Lipid panel [AGGREGATE] *Lipid Profile CC PCP [facility] Work Phone: Start: 02-18-2015 End: 02-18-2015 Cardiovascular stress test using treadmill Treadmill stress test (no imaging) [facility] Work Phone: Start: 02-18-2015 End: 02-18-2015 COMMUNICATIONS REPRESENTATIVE COMMUNICATIONS REPRESENTATIVE [facility] Work Phone: Start: 02-18-2015 End: 03-03-2015 Ecg routine ecg w/least 12 lds w/i&r EKG (In office) [facility] Work Phone: Start: 02-18-2015 End: 02-18-2015 Follow Up Appt 1 year Follow Up Appt 1 year [facility] Work Phone: Start: 02-18-2015 End: 02-18-2015 Cardiovascular stress test using treadmill Treadmill stress test (no imaging) [facility] Work Phone: Start: 02-18-2015 End: 02-18-2015 COMMUNICATIONS REPRESENTATIVE COMMUNICATIONS REPRESENTATIVE [facility] Work Phone: Start: 02-18-2015 End: 03-03-2015 Electrocardiogram, complete EKG (In office) [facility] Work Phone: Start: 02-18-2015 End: 02-18-2015 Follow Up Appt 1 year Follow Up Appt 1 year [facility] Work Phone: Start: 09-08-2014 End: 10-10-2014 *Hepatic Function Panel *Hepatic Function Panel [facility] Work Phone: Start: 09-08-2014 End: 10-10-2014 Lipid panel [AGGREGATE] *Lipid Profile CC PCP [facility] Work Phone: Start: 09-08-2014 End: 10-10-2014 *Hepatic Function Panel *Hepatic Function Panel [facility] Work Phone: Start: 09-08-2014 End: 10-10-2014 Lipid panel [AGGREGATE] *Lipid Profile CC PCP [facility] Work Phone: Start: 02-19-2014 End: 03-15-2014 *Hepatic Function Panel *Hepatic Function Panel [facility] Work Phone: Start: 02-19-2014 End: 02-19-2014 COMMUNICATIONS REPRESENTATIVE COMMUNICATIONS REPRESENTATIVE [facility] Work Phone: Start: 02-19-2014 End: 02-19-2014 Follow Up Appt 1 year Follow Up Appt 1 year [facility] Work Phone: Start: 02-19-2014 End: 03-15-2014 Lipid panel [AGGREGATE] *Lipid Profile CC PCP [facility] Work Phone: Start: 02-19-2014 End: 03-15-2014 *Hepatic Function Panel *Hepatic Function Panel [facility] Work Phone: Start: 02-19-2014 End: 02-19-2014 COMMUNICATIONS REPRESENTATIVE COMMUNICATIONS REPRESENTATIVE [facility] Work Phone: Start: 02-19-2014 End: 02-19-2014 Follow Up Appt 1 year Follow Up Appt 1 year [facility] Work Phone: Start: 02-19-2014 End: 03-15-2014 Lipid panel [AGGREGATE] *Lipid Profile CC PCP [facility] Work Phone: Start: 08-08-2013 End: 03-16-2014 *Hepatic Function Panel *Hepatic Function Panel [facility] Work Phone: Start: 08-08-2013 End: 03-16-2014 Lipid panel [AGGREGATE] *Lipid Profile CC PCP [facility] Work Phone: Start: 08-08-2013 End: 03-16-2014 *Hepatic Function Panel *Hepatic Function Panel [facility] Work Phone: Start: 08-08-2013 End: 03-16-2014 Lipid panel [AGGREGATE] *Lipid Profile CC PCP [facility] Work Phone: Start: 02-06-2013 End: 02-09-2013 *Hepatic Function Panel *Hepatic Function Panel [facility] Work Phone: Start: 02-06-2013 End: 02-06-2013 COMMUNICATIONS REPRESENTATIVE COMMUNICATIONS REPRESENTATIVE [facility] Work Phone: Start: 02-06-2013 End: 02-06-2013 Follow Up Appt 1 year Follow Up Appt 1 year [facility] Work Phone: Start: 02-06-2013 End: 02-09-2013 Lipid panel [AGGREGATE] *Lipid Profile CC PCP [facility] Work Phone: Start: 02-06-2013 End: 02-09-2013 *Hepatic Function Panel *Hepatic Function Panel [facility] Work Phone: Start: 02-06-2013 End: 02-06-2013 COMMUNICATIONS REPRESENTATIVE COMMUNICATIONS REPRESENTATIVE [facility] Work Phone: Start: 02-06-2013 End: 02-06-2013 Follow Up Appt 1 year Follow Up Appt 1 year [facility] Work Phone: Start: 02-06-2013 End: [...] Education HYPERLIPIDEMIA , HEART%20HEALTHY%20DIET, CHOLESTEROL%20AND%20YOUR% 20HEALTH, HYPERLIPIDEMIA [facility] Work Phone: Additional Source Comments [...] BE BASED ON THE PRIMARY CLINICAL RECORDS. [employer] [facility]. provides no warranty or guarantee of the accuracy or completeness of information in this document.
[2023-08-12 11:28] LABS: PSA,Total - Annual Screen 3.13 ng/mL (0.00-4.00)
== END | disposition home or self-care (01) ==
LOC: MTLAB 08:42
PROVIDERS: PCP Family Medicine; Referring Provider Family Medicine; Visit Provider Family Medicine
DX: Z00.00 Encounter for general adult medical examination without abnormal findings (principal); Z12.5 Encounter for screening for malignant neoplasm of prostate; E03.9 Hypothyroidism, unspecified
CPT/HCPCS: 36415; 84153; 84443; G0103

== ENCOUNTER → 2023-11-16 | Outpatient (CLI) | payer MEDICARE, SELFPAY ==
[2023-11-16 10:44] LABS: Free T3 2.2 pg/mL (2.18-3.98); T4 Free Direct 0.88 ng/dL (0.76-1.46); Thyroid Stim Hormone (TSH) 4.93 uIU/mL (0.358-3.74)
[2023-11-17 05:07] LABS: Thyroid Peroxidase AB 77 IU/mL (0-34)
== END | disposition home or self-care (01) ==
PROVIDERS: PCP Family Medicine; Referring Provider Family Medicine; Visit Provider Family Medicine
DX: E03.9 Hypothyroidism, unspecified (principal)
CPT/HCPCS: 36415; 84439; 84443; 84481; 86376

== ENCOUNTER 2024-07-11 10:08 | Outpatient (CLI) | payer MEDICARE, SELFPAY ==
--- NOTE | 2024-07-11 10:12 | US_ITS ---
EXAM: US RETROPERITONEAL LIMITED, AORTA CLINICAL INDICATION: FAMILY HX OF ANEURYSM TECHNIQUE: Young scale and color Doppler imaging was obtained of the abdominal aorta. COMPARISON: No relevant prior studies available. FINDINGS: AORTA: Proximal aorta measures 1.9 cm, the mid aorta measures 1.9 cm and distal aorta measures 1.9 cm. COMMON ILIAC ARTERIES: Iliac arteries measure 1.1 cm on the right 1.1 cm in the left. US/Aorta IMPRESSION: No acute findings in the aorta. Electronically Signed: Luke Delgado MD at 0:09 EST ,
== END 2024-07-11 23:59 | disposition home or self-care (01) ==
LOC: US 10:11
PROVIDERS: PCP Family Medicine; Referring Provider Family Medicine; Visit Provider Family Medicine
DX: Z13.6 Encounter for screening for cardiovascular disorders (principal); Z82.49 Family history of ischemic heart disease and other diseases of the circulatory system
CPT/HCPCS: 76775

== ENCOUNTER → 2024-08-22 | Outpatient (CLI) | payer MEDICARE, SELFPAY ==
[2024-08-22 10:49] LABS: AST(SGOT) 20 U/L (15-37); Alanine Aminotransfer ALT/SGPT 25 U/L (16-61); Albumin, Serum 3.7 g/dL (3.2-5.0); Alkaline Phosphatase 92 U/L (45-117); Anion Gap 4 (5-15); BUN 18 mg/dL (7-18); BUN/Creat Ratio 19.2 RATIO (10-20); Calcium,Total 9.5 mg/dL (8.5-10.1); Chloride 108 mmol/L (98-107); Cholesterol 120 mg/dL (200); Creatinine, Serum 0.94 mg/dL (0.70-1.30); EST Glomerular Filtration Rate 84 mL/min (>60); Est Glom Filt Rate - Afr Amer 102 mL/min (>60); Free T3 2.1 pg/mL (2.18-3.98); Globulin 3.8 g/dL (2.2-4.2); Glucose 85 mg/dL (74-106); High Density Lipoprotein 58 mg/dL; PSA,Total - Annual Screen 2.79 ng/mL (0.00-4.00); Potassium 3.8 mmol/L (3.5-5.1); Protein, Total 7.5 g/dL (6.4-8.2); Sodium Level 141 mmol/L (136-145); T4 Free Direct 0.95 ng/dL (0.76-1.46); Triglycerides 40 mg/dL; Very Low Density Lipoprotein 8 mg/dL (5-40)
== END | disposition home or self-care (01) ==
LOC: MTLAB 07:03
PROVIDERS: PCP Family Medicine; Referring Provider Family Medicine; Visit Provider Family Medicine
DX: Z00.00 Encounter for general adult medical examination without abnormal findings (principal); E03.9 Hypothyroidism, unspecified; Z12.5 Encounter for screening for malignant neoplasm of prostate
CPT/HCPCS: 36415; 80053; 80061; 84153; 84439; 84443; 84481; G0103

== ENCOUNTER → 2024-09-05 | Outpatient (CLI) | payer MEDICARE, SELFPAY ==
--- NOTE | 2024-09-05 12:54 | CT_ITS ---
PROCEDURE: SOFT TISSUE NECK WITH CONTRAST TECHNIQUE: CT of the soft tissues of the neck from the orbits to the upper mediastinum with intravenous contrast . CONTRAST: Administered COMPARISON: None. FINDINGS: Extensive metallic streak artifact from dental amalgam, limits evaluation of the oropharynx Airway: Midline and patent. Free edge of the epiglottis and aryepiglottic folds appear within normal limits. Vocal cords appear symmetric. Salivary glands: Somewhat limited assessment of the bilateral parotid glands secondary to metallic st reak artifact from dental amalgam. The submandibular glands appear relatively symmetric. Lymph nodes: Few scattered level 1, level 2 and level 3 cervical lymph nodes identified bilaterally, subcentimeter in size in short axis, and within normal limits per CT size criteria. No cervical lymphadenopathy is appreciate d. Thyroid: Enhances homogeneously. No dominant nodules are identified. Vasculature: Trace vascular calcifications within the origins of the cervical internal carotid arteri es bilaterally, without significant stenosis. The internal jugular veins appear within normal limits, slightly larger on the right. Orbits: The globes appear symmetric bilaterally. Retro conal fat is preserved bilaterally. Paranasal sinuses and mastoids: 1.2 cm mucous retention cyst versus polyp within the left maxillary s inus. Remaining visualized paranasal sinuses are well pneumatized. Slight nasal septal deviation towards the left, posteriorly. Lung apices: Clear. Upper mediastinum: Visualized mediastinum is unremarkable. Bones: Straightening of the cervical spine, which could be positional versus muscle spasm. Cervical vertebral body heights are maintained. No acute cervical spine fractures or dislocations are identified. CT/Soft Tissue Neck WITH Contrast IMPRESSION: 1. Visualized vocal cords appear symmetric. 2. Few scattered cervical lymph nodes bilaterally, subcentimeter in size in sil rt axis and within normal limits for size criteria. No cervical lymphadenopathy. 3. Trace vascular calcifications within the origins of the cervical internal ca rotid arteries bilaterally, without significant stenosis. 4. 1.2 cm mucous retention cyst versus polyp within the left maxillary sinus. 5. Additional findings, as detailed above. One or more dose reduction techniques were used (e.g., Automated exposure contr ol, adjustment of the mA and/or kV according to patient size, use of iterative reconstruction technique). Reading [facility]
== END | disposition home or self-care (01) ==
LOC: CT 12:53
PROVIDERS: PCP Family Medicine; Referring Provider Otolaryngology; Visit Provider Otolaryngology
DX: J38.3 Other diseases of vocal cords (principal)
CPT/HCPCS: 70491; Q9967

== ENCOUNTER → 2025-04-24 | Outpatient (CLI) | payer MEDICARE, SELFPAY ==
--- OUTSIDE RECORDS SUMMARY | 2025-04-24 07:32 | XMS RPT_ITS | CCD ---
Author Organization [facility] Care Team Providers Care Web Design Intern Name Role Phone Riri Mora Unavailable MD Saede, Juan Fallon Unavailable Amy Mckeon Unavailable Unavailable Romelia LUTZ, Quyen Luciano Unavailable Unavailable Riri Mora Unavailable Dr. Zurdo Friend Primary Care Provider Dr. Zurdo Friend Referring Provider 1([facility])[phone] Jacob Baxter Attending Provider Dr. Jacob Baxter Referring Provider Dr. Jacob Baxter Other Provider Dr. Zurdo Friend Primary Care Provider Dr. Zurdo Friend Referring Provider Dr. Jacob Baxter Attending Provider Dr. Juan Tipton Attending Provider 1([facility])[phone] Jacob Baxter Referring Provider Dr. Zurdo Friend Primary Care Provider Dr. Jacob Baxter Attending Provider Dr. Zurdo Friend Referring Provider Dr. Flavio Alcantar Referring Provider Dr. Juan Tipton Attending Provider 1([facility])[phone] Zurdo Friend Primary Care Provider 1([facility])[phone] Dr. Zurdo Friend Referring Provider 1([facility])[phone] MD Sedrick De Leon Attending Provider Phuc, Dr. Renner Primary Care Provider Phuc, Dr. Renner Referring Provider 1([facility])[phone] MD Sedrick De Leon Attending Provider Dr. Jacob Baxter Attending Provider 1([facility])[phone] Phuc, Dr. Renner Primary Care Provider 1([facility])[phone] Dianne Luke Attending Provider Unavailable Phuc, Dr. Renner Referring Provider MD Sedrick De Leon Attending Provider 1([facility])[phone] Tal, Dr. Palencia Attending Provider 1([facility])[phone] Friend, Dr. Palencia Other Provider 1([facility])[phone] Phuc, Dr. Renner Primary Care Provider 1([facility])[phone] Phuc, Dr. Renner Referring Provider 1([facility])[phone] MD Sedrick De Leon Attending Provider 1([facility])[phone] Dr. Juan Tipton Attending Provider 1([facility])[phone] Phuc, Dr. Renner Primary Care Provider 1([facility])[phone] Phuc, Dr. Renner Referring Provider 1([facility])[phone] MD Sedrick De Leon Attending Provider 1([facility])[phone] Dr. Juan Tipton Attending Provider 1([facility])[phone] Zurdo Friend Primary Care Unavailable Santo Morrow Attending Unavailabl e Santo Morrow Referring Unavailabl e Friend, Zurdo Referring Unavailable Friend, Zurdo Primary Care Unavailable Friend, Zurdo Attending Unavailable Friend, Zurdo Referring Unavailable Friend, Zurdo Primary Care Unavailable Friend, Zurdo Attending Unavailable Friend, Zurdo Primary Care Unavailable Juan Tipton Attending Unavailable Friend, Zurdo Referring Unavailable Friend, Zurdo Referring Unavailable Friend, Zurdo Primary Care Unavailable Friend, Zurdo Attending Unavailable Allergies Allergy Classification Reported Allergen(s) Allergy Type Date of Onset Reaction(s) Facility (16 sources) codeine; Translations: [codeine] drug allergy 02-16-20 11 [facility] Work Phone: (5 sources) penicillin drug allergy 02-16-20 11 [facility] Work Phone: (10 sources) Amoxicillin Drug Allergy 01-12-20 22 [facility] (11 sources) Penicillins; Translations: [Penicillins] Allergy to substance 01-12-20 22 unknown, [facility] (3 sources) Sulfamethoxazole Drug Allergy 03-30-20 [facility] (3 sources) Trimethoprim Drug Allergy 03-30-20 [facility] (1 source) Amoxicillin Drug Allergy 08-30-19 [facility] (1 source) Sulfamethoxazole Drug Allergy 08-30-19 [facility] (1 source) Trimethoprim Drug Allergy 08-30-19 [facility] Medications Current Medications Medication Drug Class(es) Dates Sig (Normalized) Sig (Original) atorvastatin 10 mg oral tablet (15 sources) HMG-CoA Reductase Inhibitor Start: 11-30-2011 take 10 mg by mouth once daily Atorvastatin Active 10 MG PO DAILY May 18, 2017 12:00am cholecalciferol 0.025 mg oral capsule (10 sources) Vitamin D Start: 03-31-2021 take 25 ug by mouth once daily Cholecalciferol (Vitamin D3) Active 25 MCG PO DAILY March 31, 2021 12:00am lactobacillus acidophilus 1.5 mg oral capsule (20 sources) Start: 12-29-2021 Lactobacillus Acidophilus (Probiotic Acidophilus) 1.5 mg (250 million cell) Capsule Active 1000 MMU CELLS PO DAILY December 29, 2021 12:00am Start: 05-20-2017 End: 03-09-2018 Lactobacillus Acidophilus Di scontinued 1 EACH PO DAILY May 20, 2017 12:00am March 09, 2018 4:23pm omeprazole 40 mg delayed release oral capsule (6 sources) Proton Pump Inhibitor Start: 09-17-2022 Omeprazo le Active 40 MG PO .3 TIMES WEEKLY September 17, 2022 1:00am Completed/Discontinued Medications Medication Drug Class(es) Dates Sig (Normalized) Sig (Original) acetaminophen 325 mg / HYDROcodone bitartrate 5 mg oral tablet (10 sources) Opioid Agonist Start: 01-11-2022 End: 01-22-2022 take 1 tablet by mouth every six hours Hydrocodone-Acetam inophen Discontinued 1 TABLET PO EVERY 6 HOURS 6 2 January 11, 2022 January 22, 2022 7:49am aspirin 81 mg chewable tablet (20 sources) Platelet Aggregation Inhibitor, Nonsteroidal Anti-inflammatory Drug Start: 03-09-2018 End: 11-26-2021 take 81 mg by mouth once daily Aspirin Discontinued 81 MG PO daily March 09, 2018 12:00am November 26, 2021 8:05am Start: 02-15-2011 take 1 tablet by veronica th once daily ASPIRIN 81 MG TABS One tablet by mouth daily ASPIRIN [id number] Rocío Mcleod Mishra Start: 02-15-2011 take 1 tablet by veronica th once daily ASPIRIN 81 MG TABS One tablet by mouth daily ASPIRIN [id number] Rocío Mcleod [place] Start: 02-15-2011 take 1 tablet by veronica th once daily ASPIRIN EC 81 MG TBEC One tablet by mouth daily ASPIRIN [id number] Quyen León RN azithromycin 250 mg oral tablet (10 sources) Macrolide Antimicrobial Start: 03-15-2018 End: 03-28-2019 Azithromycin Discontinued 250 MG PO daily March 15, 2018 12:00am March 28, 2019 4:20pm 2 tablets today, then 1 tablet daily on days 2 through 5 ciprofloxacin 500 mg oral tablet (10 sources) Quinolone Antimicrobial Start: 05-18-2017 End: 05-20-2017 take 500 mg by mouth once daily Ciprofloxacin Hcl Discontinued 500 MG PO DAILY May 18, 2017 12:00am May 20, 2017 7:06am diazePAM 2 mg oral tablet (3 sources) Benzodiazepine Start: 04-01-2023 End: 04-02-2023 take 1 tablet by mouth at bedtime Diazepam (Valium) 2 mg tablet Discontinued 2 MG PO AT BEDTIME 1 April 01, 2023 12:00am April 02, 2023 12:11am dicyclomine hydrochloride 10 mg oral capsule (10 sources) Anticholinergic Start: 05-20-2017 End: 03-09-2018 take 20 mg by mouth three times daily as needed Dicyclomine Discontinued 20 MG PO 3 TIMES DAILY NEEDED May 20, 2017 12:00am March 09, 2018 4:23pm esomeprazole 20 mg delayed release oral capsule (10 sources) Proton Pump Inhibitor Start: 11-26-2021 End: 09-17-2022 Esomeprazole Magnesium (Nexium) 20 mg capsule,delayed release(DR/EC) Discontinued 20 MG PO TUSA November 26, 2021 12:00am September 17, 2022 10:01am Lactobacillus Combination No.8 (Adult Probiotic) 3 billion cell capsule (10 sources) Start: 07-10-2020 End: 11-26-2021 take 3 capsules by mouth once daily Lactobacillus Combination No.8 (Adult Probiotic) 3 billion cell capsule Discontinued 3000 MMU CELLS PO DAILY July 10, 2020 2:53pm November 26, 2021 8:05am administer with a meal Start: 07-10-2020 End: 11-26-2021 take 3 capsules by mouth once daily Lactobacillus Combination No.8 (Adult Probiotic) 3 billion cell capsule Discontinued 3000 MMU CELLS PO DAILY July 10, 2020 12:00am November 26, 2021 7:05am administer with a meal Start: 07-10-2020 End: 11-26-2021 take 3 capsules by mouth once daily Lactobacillus Combination No.8 (Adult Probiotic) 3 billion cell capsule Discontinued 3000 MMU CELLS PO DAILY July 10, 2020 1:00am November 26, 2021 8:05am administer with a meal levothyroxine sodium 0.025 mg oral tablet (7 sources) l-Thyroxine Start: 04-16-2022 End: 05-21-2022 take 25 ug by mouth once daily Levothyroxine Discontinued 25 MCG PO DAILY April 16, 2022 12:00am May 21, 2022 8:34am lisinopril 10 mg oral tablet (7 sources) Angiotensin Converting Enzyme Inhibitor Start: 04-30-2022 End: 09-17-2022 take 10 mg by mouth once daily Lisinopril Discontinued 10 MG PO DAILY April 30, 2022 12:00am September 17, 2022 10:02am losartan potassium 50 mg oral tablet (6 sources) Angiotensin 2 Receptor Sabina Start: 09-17-2022 End: 03-07-2023 Losartan Discontinued 50 MG PO September 17, 2022 1:00am March 07, 2023 3:53pm meloxicam 15 mg oral tablet (20 sources) Nonsteroidal Anti-inflammatory Drug Start: 05-03-2019 End: 03-27-2020 take 1 tablet by mouth once daily Meloxicam (Mobic) 15 mg tablet Discontinued 15 MG PO DAILY May 03, 2019 12:00am March 27, 2020 4:15pm Start: 07-26-2012 End: 02-19-2014 MOBIC 7.5 MG TABS twice kendell y MELOXICAM [id number] Juan Tipton MD tamsulosin hydrochloride 0.4 mg oral capsule (20 sources) alpha-Adrenergic Sabina Start: 11-26-2021 End: 04-16-2022 take 1 capsule by mouth once daily Tamsulosin (Flomax) 0.4 mg capsule Discontinued 0.4 MG PO DAILY December 29, 2021 11:54am April 16, 2022 1:18pm triamcinolone acetonide 40 mg/ml injectable suspension (2 sources) Corticosteroid Start: 10-25-2017 End: 10-25-2017 Kenalog (triamcinolone acetonide) 10 mg/mL suspension for injection Discontinued 2 MG INTRAARTIC ONCE 0.2 October 25, 2017 1:35pm October 25, 2017 1:37pm vancomycin 125 mg oral capsule (20 sources) Glycopeptide Antibacterial Start: 11-26-2021 End: 12-06-2021 take 1 capsule by mouth four times daily Vancomycin (Vancocin) 125 mg capsule Discontinued 125 MG PO .QID 40 November 26, 2021 12:00am December 06, 2021 12:04am take 125 mg 4 times per day for 10 days prior to hernia surgery Start: 05-20-2017 End: 03-09-2018 take 125 mg by mouth every six hours Vancomycin Discontinued 125 MG PO EVERY 6 HOURS May 20, 2017 12:00am March 09, 2018 4:22pm VITAMINS-LIPOTROPICS (1 source) Start: 02-19-2014 take 1 tablet by mouth three times daily LIPOFLAVONOID TABS One tablet by mouth three times daily VITAMINS-LIPOTROPICS [id number] Juan Tipton MD VITAMINS-LIPOTROPICS (4 sources) Start: 02-19-2014 take 1 tablet by mouth three times daily LIPOFLAVONOID TABS One tablet by mouth three times daily VITAMINS-LIPOTROPICS [id number] Juan Tipton MD Start: 02-19-2014 take 1 tablet by veronica three times daily LIPOFLAVONOID TABS One tablet by mouth three times daily VITAMINS-LIPOTROPICS [id number] Juan Tipton MD Problems Active Problems Problem Classification Problem Date Documented Date Episodic/Chronic Abdominal hernia (20 sources) Bilateral inguinal hernia; Translations: [Bilateral inguinal hernia, without obstruction or gangrene, not specified as recurrent] Episodic Disorders of lipid metabolism (17 sources) Hyperlipidemia; Translations: [Hyperlipidemia, unspecified] Onset: 02-06-2013 02-06-2013 Chronic Genitourinary symptoms and ill-defined conditions (9 sources) Acute retention of urine ; Translations: [Other retention of urine] 01-22-2022 Episodic Intestinal obstruction without hernia (9 sources) Fecal impaction; Translations: [Fecal impaction] 01-22-2022 Episodic Osteoarthritis (2 sources) Arthritis of left sternoclavicular joint; Translations: [Primary osteoarthritis, left shoulder] 08-29-2023 Chronic Other circulatory disease (10 sources) Elevated blood-pressure reading without diagnosis of hypertension; Translations: [Elevated blood-pressure reading, without diagnosis of hypertension] 04-16-2022 Episodic Other connective tissue disease (6 sources) Internal impingement of right shoulder; Translations: [Impingement syndrome of right shoulder] 05-21-2022 Episodic Other connective tissue disease (3 sources) Impingement syndrome of right shoulder; Translations: [Other affections of shoulder region, not elsewhere classified] 09-17-2022 Episodic Other infections; including parasitic (10 sources) H/O: colitis; Translations: [Personal history of other infectious and parasitic diseases] 04-16-2022 Episodic Other infections; including parasitic (3 sources) Personal history of other infectious and parasitic diseases; Translations: [Personal history of other diseases of digestive system] Episodic Other non-traumatic joint disorders (2 sources) Shoulder pain; Translations: [Pain in right shoulder] 05-21-2022 Episodic Other non-traumatic joint disorders (6 sources) Pain in right shoulder; Translations: [Right shoulder pain] 05-21-2022 Episodic Other non-traumatic joint disorders (2 sources) Disorder of shoulder; Translations: [Other specified joint disorders, right shoulder] 05-16-2023 Episodic Other non-traumatic joint disorders (1 source) Other specified joint disorders, right shoulder; Translations: [Other specified disorders of joint, shoulder region] 05-16-2023 Episodic Other screening for suspected conditions (not mental disorders or infectious disease) (5 sources) Patient encounter status; Translations: [Encounter for screening for malignant neoplasm of colon] Onset: 08-14-2024 03-07-2023 Episodic Other upper respiratory disease (1 source) Other diseases of vocal cords; Translations: [Other diseases of vocal cords] Onset: 09-21-2024 Episodic Otitis media and related conditions (10 sources) Otitis media; Translations: [Otitis media, unspecified, right ear] 03-17-2019 Episodic Residual codes; unclassified (18 sources) Family history of ischemic heart disease and other diseases of the circulatory system; Translations: [Family history of ischemic heart disease] Onset: 02-15-2011 02-19-2014 Episodic Residual codes; unclassified (10 sources) H/O: urinary disease; Translations: [Personal history of other specified conditions] 04-16-2022 Episodic Residual codes; unclassified (5 sources) Personal history of other specified conditions; Translations: [Personal history of other specified urinary system disorders] Episodic Sprains and strains (15 sources) Strain of neck muscle; Translations: [Partial division, tendo calcaneus (Achilles tendon)] Onset: 05-17-2013 05-18-2013 Episodic Thyroid disorders (11 sources) Hypothyroidism; Translations: [Hypothyroidism, unspecified] Onset: 11-23-2023 04-16-2022 Chronic Unclassified (12 sources) Long-term drug therapy; [...] unspecified shoulder] 05-25-2012 Episodic Residual codes; unclassified (2 sources) Family history of ischemic heart disease; Translations: [Family history of ischemic heart disease and other diseases of the circulatory system] Onset: 02-15-2011 02-15-2011 Episodic Spondylosis; intervertebral disc disorders; other back problems (5 sources) Neck pain; Translations: [Cervicalgia] Onset: 07-12-2013 07-12-2013 Episodic Results Test Name Value Interpretation Reference Range Facility Soft Tissue Neck WITH Contra ston 09-05-2024 Soft Tissue Neck WITH Contrast [facility] [address] [place] [address] Soft Tissue Neck WITH Contrast MR#: [id number] Acct: [id number] Name: SEDRICK TALBERT Rep #: [id number] : 1955 M 69 From: Riley Gardiner DO PCP: Dr. Zurdo Friend MD Status: REG CLI Study: Soft Tissue Neck WITH Contrast Date of Exam: 0 09/05/24 Exam# [id number] Ordering Dr: Santo Morrow MD PROCEDURE: SOFT TISSUE NECK WITH CONTRAST TECHNIQUE: CT of the soft tissues of the neck from the orbits to the upper mediastinum with intravenous contrast. CONTRAST: Administered COMPARISON: None. FINDINGS: Extensive metallic streak artifact from dental amalgam, limits evaluation of the oropharynx Airway: Midline and patent. Free edge of the epiglottis and aryepiglottic folds appear within normal limits. Vocal cords appear symmetric. Salivary glands: Somewhat limited assessment of the bilateral parotid glands secondary to metallic streak artifact from dental amalgam. The submandibular glands appear relatively symmetric. Lymph nodes: Few scattered level 1, level 2 and level 3 cervical lymph nodes identified bilaterally, subcentimeter in size in short axis, and within normal limits per CT size criteria. No cervical lymphadenopathy is appreciated. Thyroid: Enhances homogeneously. No dominant nodules are identified. Vasculature: Trace vascular calcifications within the origins of the cervical internal carotid arteries bilaterally, without significant stenosis. The internal jugular veins appear within normal limits, slightly larger on the right. Orbits: The globes appear symmetric bilaterally. Retro conal fat is preserved bilaterally. Paranasal sinuses and mastoids: 1.2 cm mucous retention cyst versus polyp within the left maxillary sinus. Remaining visualized paranasal sinuses are well pneumatized. Slight nasal septal deviation towards the left, posteriorly. Lung apices: Clear. Upper mediastinum: Visualized mediastinum is unremarkable. Bones: Straightening of the cervical spine, which could be positional versus muscle spasm. Cervical vertebral body heights are maintained. No acute cervical spine fractures or dislocations are identified. CT/Soft Tissue Neck WITH Contrast IMPRESSION: 1. Visualized vocal cords appear symmetric. 2. Few scattered cervical lymph nodes bilaterally, subcentimeter in size in short axis and within normal limits for size criteria. No cervical lymphadenopathy. 3. Trace vascular calcifications within the origins of the cervical internal carotid arteries bilaterally, without significant stenosis. 4. 1.2 cm mucous retention cyst versus polyp within the left maxillary sinus. 5. Additional findings, as detailed above. One or more dose reduction techniques were used (e.g., Automated exposure control, adjustment of the mA and/or kV according to patient size, use of iterative reconstruction technique). Reading Location: [facility] CC: Dr. Santo Morrow MD; Dr. Zurdo Friend MD Project Accountant: Signed Normal [facility] Cardiology Visit Reporton Cardiology Visit Report [facility] [address] [place] [address] OFFICE VISIT Date of Service: 08/30/24 MR#: [id number] Acct: [id number] Name: SEDRICK TALBERT Rep #: [id number] : 1955 Provider: Dr. Juan Tipton MD Age/Sex: 69/M [place] [facility] [place]: Signed HPI HPI History of Present Illness Details: SEDRICK TALBERT, is a 69 M who presents to us for a follow-up evaluation. He is a gentleman with no documented obstructive coronary artery disease but significant family risk factors. He had previously undergone a CT angiogram which demonstrated mild calcification but no high-grade stenosis. His last stress test was in April 2020 which demonstrated no evidence of ischemia at a high workload is been compliant with all his medications. His last echocardiogram also demonstrated preserved ejection fraction of 60% with equivocal mitral valve prolapse. He remains quite active. His physical exam here demonstrates clear lung hutchinson regular rate and rhythm no pedal edema his blood pressure is under good control. 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 Melting Required: No Accompanied by: Self Is patient in pain?: No Allergies amoxicillin Allergy (Verified 08/30/24 10:26) Rash Penicillins (PCN) Allergy (Verified 08/30/24 10:26) Rash sulfamethoxazole (From Aprra) Allergy (Verified 08/30/24 10:) Rash trimethoprim (From ) Allergy (Verified 08/30/24 10:26) Rash codeine Adverse Reaction (Verified 08/30/24 10:26) Rash Medications ???Medication ???Instructions ???Recorded ???Confirmed ???Type atorvastatin 10 mg tablet 10 mg PO DAILY 05/18/17 08/30/24 History Lactobacillus acidophilus 250 1,000 mmu cells PO DAILY 12/29/21 08/30/24 History million cell capsule (Probiotic Acidophilus) levothyroxine 25 mcg tablet 25 mcg PO DAILY 08/30/24 08/30/24 History omeprazole 40 mg capsule,delayed 40 mg PO .2 times a week 08/30/24 08/30/24 History release Have you fallen in the past year?: No PFSH Medical History Arthritis of left sternoclavicular joint History of thrush Impingement of right shoulder High cholesterol Hoarseness History of echocardiogram History of stress test Internal impingement of right shoulder Right shoulder pain Umbilical hernia Wears glasses Migraine headache History of hiatal hernia Gastric reflux Non-smoker Cardiology follow-up encounter History of Clostridioides difficile colitis History of urinary retention Inguinal hernia bilateral, non-recurrent Elevated blood pressure reading in office without diagnosis of hypertension Partial tear of left Achilles tendon Hypothyroidism Family history of coronary artery disease Hyperlipidemia Surgical History Hx of colonoscopy History of bilateral inguinal hernia repair History of wisdom tooth extraction History of tonsillectomy Family History Brother CAD (coronary artery disease), Onset Age: 59 CABG Heart disease Brother CAD (coronary artery disease), Onset Age: 59 CABG Heart disease Aunt Heart disease Grandfather Cancer lung Grandmother Cancer lung Social History household members: spouse current occupational status: retired Smoking Status: Never smoker alcohol intake: never substance use type: does not use ROS Const Const: Negative for fatigue, weakness, headache(s), daytime sleepiness or difficulty sleeping ENT ENT: Negative for headache(s), dizziness or Nosebleed/epistaxis Cardio Chest Pain: No Palpitations: No Edema: None Resp Respiratory: Negative for SOB with activity, SOB at rest, SOB orthopnea SOB lying down or Cough GI GI: Negative nausea, vomiting or heartburn Neuro Neuro: Negative for dizziness, lightheadedness, near syncope, headache(s) or weakness Endo Endo: Negative for fatigue Cardiology Exam Const Appearance: cooperative, healthy appearing, no acute distress, well developed and well groomed Nutritional Appearance: average body habitus and well nourished Orientation: alert, awake and oriented x3 Head Head: normal to inspection, normocephalic and atraumatic Ears: hearing grossly normal bilaterally and external ears normal Nose: external nose normal, nares normal, nasal mucous membranes and turbinates normal, septum normal and no nasal discharge Face and Sinus: face s (more content not included)... Normal [facility] Comprehensive Metabolic Prof ilon 08-22-2024 Albumin [Mass/Vol] 3.7 g/dL Normal 3.2-5.0 [facility] Comment on above: Performed By: #### L 500.4050, L500.4100, L501.37081, L506.0400, L501.9520, L501.9910 #### [facility] [address] [place], [address] Albumin/Globulin [Mass ratio] 1.0 {ratio} Normal 0.9-2.4 [facility] Comment on above: Performed By: #### L 500.4050, L500.4100, L501.18248, L506.0400, L501.9520, L501.9910 #### [facility] [address] [place], [address] ALK P 92 U/L Normal 45-117 [facility] Comment on above: Performed By: #### L 500.4050, L500.4100, L501.53626, L506.0400, L501.9520, L501.9910 #### [facility] [address] [place], [address] ALT [Catalytic activity/Vol] 25 U/L Normal 16-61 [facility] Comment on above: Performed By: #### L 500.4050, L500.4100, L501.36571, L506.0400, L501.9520, L501.9910 #### [facility] [address] [place], [address] AST [Catalytic activity/Vol] 20 U/L Normal 15-37 [facility] Comment on above: Performed By: #### L 500.4050, L500.4100, L501.77607, L506.0400, L501.9520, L501.9910 #### [facility] [address] [place], [address] Bilirubin [Mass/Vol] 0.90 mg/dL Normal 0.20-1.00 [facility] Comment on above: Result Comment: For patients on eltrombopag therapy, use of Dimension [place] TBIL is not recommended. Performed By: #### L 500.4050, L500.4100, L501.86644, L506.0400, L501.9520, L501.9910 #### [facility] [address] [place], [place], [id number] BUN/CRE 19.2 RATIO Normal 10-20 [facility] Comment on above: Performed By: #### L 500.4050, L500.4100, L501.67218, L506.0400, L501.9520, L501.9910 #### [facility] [address] [place], [address] CA,Total 9.5 mg/dL Normal 8.5-10.1 [facility] Comment on above: Performed By: #### L 500.4050, L500.4100, L501.53531, L506.0400, L501.9520, L501.9910 #### [facility] [address] [place], [address] Chloride [Moles/Vol] 108 mmol/L High 98-107 [facility] Comment on above: Performed By: #### L 500.4050, L500.4100, L501.78355, L506.0400, L501.9520, L501.9910 #### [facility] [address] [place], [address] CO2 [Moles/Vol] 30.0 mmol/L Normal 21.0-32.0 [facility] Comment on above: Performed By: #### L 500.4050, L500.4100, L501.07901, L506.0400, L501.9520, L501.9910 #### [facility] [address] [place], [address] Creatinine [Mass/Vol] 0.94 mg/dL Normal 0.70-1.30 [facility] Comment on above: Result Comment: The validity of the calculated GFR GFRAA in patients over 70 years has not been determined. Clinical correlation is essential. Performed By: #### L 500.4050, L500.4100, L501.44506, L506.0400, L501.9520, L501.9910 #### [facility] [address] [place], [address] EST GFR - AA 102 mL/min Normal >60 [facility] Comment on above: Result Comment: Afri can [place] African GFR Calc Performed By: #### L 500.4050, L500.4100, L501.61004, L506.0400, L501.9520, L501.9910 #### [facility] [address] [place], [address] GAP 4 Low 5-15 [facility] Comment on above: Performed By: #### L 500.4050, L500.4100, L501.64010, L506.0400, L501.9520, L501.9910 #### [facility] [address] [place], [address] GFR/1.73 sq M.predicted among non-blacks MDRD (S/P/Bld) [Vol rate/Area] 84 mL/min/{1.73_m2} Normal >60 [facility] Comment on above: Result Comment: Non- GFR Calc Performed By: #### L 500.4050, L500.4100, L501.00806, L506.0400, L501.9520, L501.9910 #### [facility] [address] [place], [address] Globulin (S) [Mass/Vol] 3.8 g/dL Normal 2.2-4.2 [facility] Comment on above: Performed By: #### L 500.4050, L500.4100, L501.16510, L506.0400, L501.9520, L501.9910 #### [facility] [address] [place], [address] Glucose [Mass/Vol] 85 mg/dL Normal 74-106 [facility] Comment on above: Performed By: #### L 500.4050, L500.4100, L501.97953, L506.0400, L501.9520, L501.9910 #### [facility] [address] [place], [address] Potassium [Moles/Vol] 3.8 mmol/L Normal 3.5-5.1 [facility] Comment on above: Performed By: #### L 500.4050, L500.4100, L501.80315, L506.0400, L501.9520, L501.9910 #### [facility] [address] [place], [address] Sodium [Moles/Vol] 141 mmol/L Normal 136-145 [facility] Comment on above: Performed By: #### L 500.4050, L500.4100, L501.53725, L506.0400, L501.9520, L501.9910 #### [facility] [address] [place], [address] T PROT 7.5 g/dL Normal 6.4-8.2 [facility] Comment on above: Performed By: #### L 500.4050, L500.4100, L501.25828, L506.0400, L501.9520, L501.9910 #### [facility] [address] [place], [address] Urea nitrogen [Mass/Vol] 18 mg/dL Normal 7-18 [facility] Comment on above: Performed By: #### L 500.4050, L500.4100, L501.54748, L506.0400, L501.9520, L501.9910 #### [facility] [address] [place], [address] Free T3on 08-22-2024 Free T3 [Mass/Vol] 2.1 pg/mL Low 2.18-3.98 [facility] Comment on above: Performed By: #### L 500.4050, L500.4100, L501.74224, L506.0400, L501.9520, L501.9910 #### [facility] [address] [place], [address] Lipid Profileon 08-22-2024 Cholesterol [Mass/Vol] 120 mg/dL Normal 200 [facility] Comment on above: Result Comment: <200 mg/dL Desirable 200-240 mg/dL Borderline >240 mg/dL High Risk Performed By: #### L 500.4050, L500.4100, L501.32719, L506.0400, L501.9520, L501.9910 #### [facility] [address] [place], [address] Cholesterol in HDL [Mass/Vol] 58 mg/dL Normal [facility] Comment on above: Result Comment: The drugs N-Acetylcysteine and Metamizole may falsely depress this assay. Reference Range HDL <40 mg/dL Low HDL Cholesterol HDL >or= 60 mg/dL High HDL Cholesterol Performed By: #### L 500.4050, L500.4100, L501.37121, L506.0400, L501.9520, L501.9910 #### [facility] [address] [place], [address] Cholesterol in LDL [Mass/Vol] 54 mg/dL Normal 0-130 [facility] Comment on above: Performed By: #### L 500.4050, L500.4100, L501.08345, L506.0400, L501.9520, L501.9910 #### [facility] [address] [place], [address] Cholesterol in VLDL [Mass/Vol] 8 mg/dL Normal 5-40 [facility] Comment on above: Performed By: #### L 500.4050, L500.4100, L501.49723, L506.0400, L501.9520, L501.9910 #### [facility] [address] [place], [address] Triglyceride [Mass/Vol] 40 mg/dL Normal [facility] Comment on above: Result Comment: The drugs N-Acetylcysteine and Metamizole may falsely depress this assay. Serum Triglycerides Reference Interval Normal <150 mg/dL Borderline high 150 - 199 mg/dL High 200 - 499 mg/dL Very High > or = 500 mg/dL Performed By: #### L 500.4050, L500.4100, L501.63893, L506.0400, L501.9520, L501.9910 #### [facility] [address] [facility] [place], [address] PSA,Total - Annual Screenon 08-22-2024 PSA,TOT SCREEN 2.79 ng/mL Normal 0.00-4.00 [facility] Comment on above: Result Comment: This test was performed using the TPSA assay method for the [employer] chemistry system. Values obtained with different assay methods cannot be used interchangably. When changing PSA assays in the course of monitoring a patient, additional sequential testing should be carried out to confirm baseline values. Performed By: #### L 506.0400, L501.22175 #### [facility] [address] [place], [address] T4 Free Directon 08-22-2024 T4 FREE DIRECT 0.95 ng/dL Normal 0.76-1.46 [facility] Comment on above: Performed By: #### L 506.0400, L501.89574 #### [facility] [address] [facility] [place], [address] Thyroid Stim Hormone (TSH)on 08-22-2024 TSH 4.210 uIU/mL High 0.358-3.740 [facility] Comment on above: Performed By: #### L 506.0400, L501.42434 #### [facility] [address] [place], [address] Aortaon 07-11-2024 Aorta [facility] [address] [place] [address] Aorta MR#: [id number] Acct: [id number] Name: SEDRICK TALBERT Rep #: [id number] : 1955 M 69 From: Luke Delgado MD PCP: Dr. Zurdo Friend MD Status: REG CLI Study: Aorta Date of Exam: 07/11/24 Exam# [id number] Ordering Dr: Zurdo Friend MD [id number] EXAM: US RETROPERITONEAL LIMITED, AORTA CLINICAL INDICATION: FAMILY HX OF ANEURYSM TECHNIQUE: Young scale and color Doppler imaging was obtained of the abdominal aorta. COMPARISON: No relevant prior studies available. FINDINGS: AORTA: Proximal aorta measures 1.9 cm, the mid aorta measures 1.9 cm and distal aorta measures 1.9 cm. COMMON ILIAC ARTERIES: Iliac arteries measure 1.1 cm on the right 1.1 cm in the left. US/Aorta IMPRESSION: No acute findings in the aorta. Electronically Signed: Luke Delgado MD at 0:09 EST , CC: Dr. Zurdo Friend MD Project Accountant: Signed Normal [facility] Thyroid Peroxidase ABon 11-06 THYR PEROX AB 77 IU/mL High 0-34 [facility] Comment on above: Result Comment: Perf ormed at: CB - [facility] [address] [id number] Stakes Player: López Catsro PhD, Phone: [phone] Performed By: #### L 4027.5405 #### [facility] [address] [place] [address]. [place], [address] Free T3on 11-16-2023 Free T3 [Mass/Vol] 2.2 pg/mL Normal 2.18-3.98 [facility] Comment on above: Order Comment: KRYSTYNA SIU. Order Date: 08/25/23 Order Info: 3051-0 - T3F Order Info: 3 - TSH Order Info: [id number] - T4F Performed By: #### L 506.0400, L501.05341 #### [facility] [address] [place], [address] No Panel InformationOrdered By: Zurdo Friend on 11-16-2023 Free Triiodothyronine (T3) pg/dL 2.2 pg/mL 2.18-3.98 [facility] Serum or plasma thyroid stim ulating hormone (TSH) measurement (units/volume)Ordered By: Zurdo Friend on 11-16-2023 TSH Qn 4.93 uIU/mL 0.358-3.74 [facility] Serum or plasma thyroperoxid ase antibody assay (units/volume)Ordered By: Zurdo Friend on 11-16-2023 TPO Ab Qn 77 [IU]/mL 0-34 [facility] Comment on above: Performed at: [place] [id number] Director: López Castro PhD, Phone: [phone] T4 Free Directon 11-16-2023 T4 FREE DIRECT 0.88 ng/dL Normal 0.76-1.46 [facility] Comment on above: Order Comment: KRYSTYNA SIU. Order Date: 08/25/23 Order Info: 0 - T3F Order Info: [id number] - TSH Order Info: 3024-02 T4F Performed By: #### L 506.0400, L501.33346 #### [facility] [address] [place], [address] Thin prep Papanicolaou smear with manual screeningOrdered By: Zurdo Friend on 11-16-2023 Thin prep Papanicolaou smear with manual screening 0.88 ng/dL 0.76-1.46 [facility] Thyroid Stim Hormone (TSH)on 11-16-2023 TSH 4.93 uIU/mL High 0.358-3.74 [facility] Comment on above: Order Comment: KRYSTYNA SIU. Order Date: 08/25/23 Order Info: [id number] - T3F Order Info: 3 - TSH Order Info: [id number] - T4F Performed By: #### L 501.9520 #### [facility] [place], [address] No Panel InformationOrdered By: Zurdo Friend on 08-12-2023 Prostate Specific Antigen Screen 3.13 ng/mL 0.00-4.00 [facility] Comment on above: This test was perfor med using the TPSA assay method for the[employer] chemistry system. Values obtained with differentassay methods cannot be used interchangably.When changing PSA assays in the course of monitoring apatient, additional sequential testing should be carriedout to confirm baseline values. Thyroid Stimulating Hormone (TSH) 4.30 uIU/mL 0.358-3.74 [facility] Basophil percentageOrdered B y: Zurdo Friend on 03-01-2023 Chloride [Moles/Vol] 109 mmol/L 98-107 [facility] Cholesterol [Mass/Vol] 132 mg/dL <200 [facility] Comment on above: <200 mg/dL Desirable 200-240 mg/dL Borderline >240 mg/dL High Risk Glucose [Mass/Vol] 89 mg/dL 74-106 [facility] Potassium [Moles/Vol] 4.0 mmol/L 3.5-5.1 [facility] Sodium [Moles/Vol] 141 mmol/L 136-145 [facility] Triglyceride [Mass/Vol] 51 mg/dL <199 [facility] Comment on above: The drugs N-Acetylcy steine and Metamizole may falsely depress this assay.Serum Triglycerides Reference Interval Normal <150 mg/dL Borderline high 150 - 199 mg/dL High 200 - 499 mg/dL Very High > or = 500 mg/dL Laboratory - Chemistry and C hemistry - challengeOrdered By: Zurdo Friend on 03-01-2023 CO2 [Moles/Vol] 28.0 mmol/L 21.0-32.0 [facility] Urea nitrogen/Creatinine [Mass ratio] 15.8 mg/mg 10-20 [facility] No Panel InformationOrdered By: Zurdo Friend on 03-01-2023 Estimated GFR (MDRD) Amer 102 mL/min >60 [facility] Comment on above: GFR Calc Estimated GFR (MDRD) Non-Af Amer 84 mL/min >60 [facility] Comment on above: Non- GFR Calc Thyroid Stimulating Hormone (TSH) 4.18 uIU/mL 0.358-3.74 [facility] Serum or plasma calcium dora urement (mass/volume)Ordered By: Zurdo Friend on 03-01-2023 Calcium [Mass/Vol] 9.1 mg/dL 8.5-10.1 [facility] Serum or plasma cholesterol in HDL measurement (mass/volume)Ordered By: Zurdo Friend on 03-01-2023 Cholesterol in HDL [Mass/Vol] 52 mg/dL >40 [facility] Comment on above: The drugs N-Acetylcy steine and Metamizole may falsely depress this assay. Reference Range HDL <40 mg/dL Low HDL Cholesterol HDL >or= 60 mg/dL High HDL Cholesterol Serum or plasma cholesterol in VLDL measurement (mass/volume)Ordered By: Zurdo Friend on 03-01-2023 Cholesterol in VLDL [Mass/Vol] 10 mg/dL 5-40 [facility] Serum or plasma creatinine m easurement (mass/volume)Ordered By: Zurdo Friend on 03-01-2023 Creatinine [Mass/Vol] 0.95 mg/dL 0.70-1.30 [facility] Comment on above: The validity of the calculated GFR & GFRAA in patients over 70 years has not been determined. Clinical correlation is essential. Serum or plasma low density lipoprotein (LDL) cholesterol measurement (mass/volume)Ordered By: Zurdo Friend on 03-01-2023 Cholesterol in LDL [Mass/Vol] 70 mg/dL 0-130 [facility] Serum or plasma urea nitroge n measurement (mass/volume)Ordered By: Zurdo Friend on 03-01-2023 Urea nitrogen [Mass/Vol] 15 mg/dL 7-18 [facility] Thin prep Papanicolaou smear with manual screeningOrdered By: Zurdo Friend on 03-01-2023 Thin prep Papanicolaou smear with manual screening 4 5-15 [facility] Basophil percentageOrdered B y: Dr. Friend on 09-24-2022 Bilirubin [Mass/Vol] 0.90 mg/dL 0.20-1.00 [facility] Comment on above: For patients on eltr ombopag therapy, use of Dimension [place] TBIL is not recommended. Chloride [Moles/Vol] 110 mmol/L 98-107 [facility] Cholesterol [Mass/Vol] 117 mg/dL <200 [facility] Comment on above: <200 mg/dL Desirable 200-240 mg/dL Borderline >240 mg/dL High Risk Glucose [Mass/Vol] 97 mg/dL 74-106 [facility] Potassium [Moles/Vol] 4.0 mmol/L 3.5-5.1 [facility] Protein [Mass/Vol] 7.1 g/dL 6.4-8.2 [facility] Sodium [Moles/Vol] 141 mmol/L 136-145 [facility] Triglyceride [Mass/Vol] 53 mg/dL <199 [facility] Comment on above: The drugs N-Acetylcy steine and Metamizole may falsely depress this assay.Serum Triglycerides Reference Interval Normal <150 mg/dL Borderline high 150 - 199 mg/dL High 200 - 499 mg/dL Very High > or = 500 mg/dL Laboratory - Chemistry and C hemistry - challengeOrdered By: Dr. Friend on 09-24-2022 ALP [Catalytic activity/Vol] 66 U/L 45-117 [facility] ALT [Catalytic activity/Vol] 23 U/L 16-61 [facility] CO2 [Moles/Vol] 25.0 mmol/L 21.0-32.0 [facility] Free T4 [Mass/Vol] 0.93 ng/dL 0.76-1.46 [facility] Globulin (S) [Mass/Vol] 3.5 g/dL 2.2-4.2 [facility] Urea nitrogen/Creatinine [Mass ratio] 17.3 mg/mg 10-20 [facility] No Panel InformationOrdered By: Dr. Friend on 09-24-2022 Estimated GFR (MDRD) Amer 104 mL/min >60 [facility] Comment on above: GFR Calc Estimated GFR (MDRD) Non-Af Amer 86 mL/min >60 [facility] Comment on above: Non- GFR Calc Free Triiodothyronine (T3) pg/dL 2.4 pg/mL 2.18-3.98 [facility] Thyroid Stimulating Hormone (TSH) 3.40 uIU/mL 0.358-3.74 [facility] Serum or plasma albumin dora urement (mass/volume)Ordered By: Dr. Friend on 09-24-2022 Albumin [Mass/Vol] 3.6 g/dL 3.2-5.0 [facility] Serum or plasma albumin/glob ulin mass ratioOrdered By: Dr. Friend on 09-24-2022 Albumin/Globulin [Mass ratio] 1.0 {ratio} 0.9-2.4 [facility] Serum or plasma calcium dora urement (mass/volume)Ordered By: Dr. Friend on 09-24-2022 Calcium [Mass/Vol] 9.1 mg/dL 8.5-10.1 [facility] Serum or plasma cholesterol in HDL measurement (mass/volume)Ordered By: Dr. Friend on 09-24-2022 Cholesterol in HDL [Mass/Vol] 47 mg/dL >40 [facility] Comment on above: The drugs N-Acetylcy steine and Metamizole may falsely depress this assay. Reference Range HDL <40 mg/dL Low HDL Cholesterol HDL >or= 60 mg/dL High HDL Cholesterol Serum or plasma cholesterol in VLDL measurement (mass/volume)Ordered By: Dr. Friend on 09-24-2022 Cholesterol in VLDL [Mass/Vol] 11 mg/dL 5-40 [facility] Serum or plasma creatinine m easurement (mass/volume)Ordered By: Dr. Friend on 09-24-2022 Creatinine [Mass/Vol] 0.93 mg/dL 0.70-1.30 [facility] Comment on above: The validity of the calculated GFR & GFRAA in patients over 70 years has not been determined. Clinical correlation is essential. Serum or plasma low density lipoprotein (LDL) cholesterol measurement (mass/volume)Ordered By: Dr. Friend on 09-24-2022 Cholesterol in LDL [Mass/Vol] 59 mg/dL 0-130 [facility] Serum or plasma urea nitroge n measurement (mass/volume)Ordered By: Dr. Friend on 09-24-2022 Urea nitrogen [Mass/Vol] 16 mg/dL 7-18 [facility] Thin prep Papanicolaou smear with manual screeningOrdered By: Dr. Friend on 09-24-2022 Thin prep Papanicolaou smear with manual screening 21 U/L 15-37 [facility] Thin prep Papanicolaou smear with manual screening 6 5-15 [facility] Basophil percentageon 2021 Chloride [Moles/Vol] 109 mmol/L 98-107 [facility] Work Phone: Cholesterol [Mass/Vol] 117 mg/dL <200 [facility] Work Phone: Comment on above: <200 mg/dL Desirable 200-240 mg/dL Borderline >240 mg/dL High Risk Glucose [Mass/Vol] 91 mg/dL 74-106 [facility] Work Phone: Potassium [Moles/Vol] 3.9 mmol/L 3.5-5.1 [facility] Work Phone: Sodium [Moles/Vol] 141 mmol/L 136-145 [facility] Work Phone: [phone] Triglyceride [Mass/Vol] 56 mg/dL <199 [facility] Work Phone: Comment on above: The drugs N-Acetylcy steine and Metamizole may falsely depress this assay.Serum Triglycerides Reference Interval Normal <150 mg/dL Borderline high 150 - 199 mg/dL High 200 - 499 mg/dL Very High > or = 500 mg/dL Laboratory - Chemistry and C hemistry - challengeon 03-26-2022 CO2 [Moles/Vol] 26.0 mmol/L 21.0-32.0 [facility] Work Phone: Free T4 [Mass/Vol] 0.86 ng/dL 0.76-1.46 [facility] Work Phone: [phone] Urea nitrogen/Creatinine [Mass ratio] 16.8 mg/mg 10-20 [facility] Work Phone: No Panel Informationon 03-26 Estimated GFR (MDRD) Amer 109 mL/min >60 [facility] Work Phone: Comment on above: GFR Calc Estimated GFR (MDRD) Non-Af Amer 90 mL/min >60 [facility] Work Phone: Comment on above: Non- GFR Calc Free Triiodothyronine (T3) pg/dL 2.3 pg/mL 2.18-3.98 [facility] Work Phone: Thyroid Stimulating Hormone (TSH) 5.90 uIU/mL 0.358-3.74 [facility] Work Phone: Serum or plasma calcium dora urement (mass/volume)on 03-26-2022 Calcium [Mass/Vol] 8.7 mg/dL 8.5-10.1 [facility] Work Phone: Serum or plasma cholesterol in HDL measurement (mass/volume)on 03-26-2022 Cholesterol in HDL [Mass/Vol] 46 mg/dL >40 [facility] Work Phone: Comment on above: The drugs N-Acetylcy steine and Metamizole may falsely depress this assay. Reference Range HDL <40 mg/dL Low HDL Cholesterol HDL >or= 60 mg/dL High HDL Cholesterol Serum or plasma cholesterol in VLDL measurement (mass/volume)on 03-26-2022 Cholesterol in VLDL [Mass/Vol] 11 mg/dL 5-40 [facility] Work Phone: Serum or plasma creatinine m easurement (mass/volume)on 03-26-2022 Creatinine [Mass/Vol] 0.90 mg/dL 0.70-1.30 [facility] Work Phone: Comment on above: The validity of the calculated GFR & GFRAA in patients over 70 years has not been determined. Clinical correlation is essential. Serum or plasma low density lipoprotein (LDL) cholesterol measurement (mass/volume)on 03-26-2022 Cholesterol in LDL [Mass/Vol] 60 mg/dL 0-130 [facility] Work Phone: Serum or plasma urea nitroge n measurement (mass/volume)on 03-26-2022 Urea nitrogen [Mass/Vol] 15 mg/dL 7-18 [facility] Work Phone: Thin prep Papanicolaou smear with manual screeningon 03-26-2022 Thin prep Papanicolaou smear with manual screening 6 5-15 [facility] Work Phone: Basophil percentageon 2021 Chloride [Moles/Vol] 107 mmol/L 98-107 [facility] Work Phone: Glucose [Mass/Vol] 91 mg/dL 74-106 [facility] Work Phone: [phone] Potassium [Moles/Vol] 4.0 mmol/L 3.5-5.1 [facility] Work Phone: [phone] Sodium [Moles/Vol] 139 mmol/L 136-145 [facility] Work Phone: WBC (Bld) [#/Vol] 5.6 10*3/uL 4.4-11.0 [facility] Work Phone: Blood erythrocytes count (nu mber/volume)on 01-01-2022 RBC (Bld) [#/Vol] 4.56 10*6/uL 4.6-6.2 [facility]: Blood hemoglobin measurement (mass/volume)on 01-01-2022 Hemoglobin (Bld) [Mass/Vol] 14.6 g/dL 13.0-16.5 [facility] Work Phone: Blood platelet mean volumeon 01-01-2022 Platelet mean volume (Bld) [Entitic vol] 9.7 fL 6.2-12.0 [facility] Work Phone: Determination of erythrocyte mean corpuscular volume (MCV)on 01-01-2022 MCV (RBC) [Entitic vol] 99.1 fL 80-94 [facility] Work Phone: Hematocrit Auto (Bld) [Volum e fraction]on 01-01-2022 Hematocrit (Bld) [Volume fraction] 45.2 % 40-54 [facility] Work Phone: Laboratory - Chemistry and C hemistry - challengeon 01-01-2022 CO2 [Moles/Vol] 27.0 mmol/L 21.0-32.0 [facility] Work Phone: Urea nitrogen/Creatinine [Mass ratio] 18.5 mg/mg 10-20 [facility] Work Phone: [phone] Laboratory - Hematology and Cell countson 01-01-2022 Erythrocyte distribution width (RBC) [Entitic vol] 46.5 fL 35.1-43.9 [facility] Work Phone: [phone] Erythrocyte distribution width (RBC) [Ratio] 12.7 % 11.6-14.6 [facility] Work Phone: [phone] MCH (RBC) [Entitic mass] 32.0 pg 27.0-32.0 [facility] Work Phone: [phone] MCHC Auto (RBC) [Mass/Vol]on 01-01-2022 MCHC (RBC) [Mass/Vol] 32.3 g/dL 32-36 [facility] Work Phone: No Panel Informationon 01-01 Estimated GFR (MDRD) Amer 99 mL/min >60 [facility] Work Phone: Comment on above: GFR Calc Estimated GFR (MDRD) Non-Af Amer 81 mL/min >60 [facility] Work Phone: [phone] Comment on above: Non- GFR Calc Thyroid Stimulating Hormone (TSH) 5.09 uIU/mL 0.358-3.74 [facility] Work Phone: Platelets bldon 01-01-2022 Platelets (Bld) [#/Vol] 239 10*3/uL 150-450 [facility] Work Phone: [phone] Serum or plasma calcium dora urement (mass/volume)on 01-01-2022 Calcium [Mass/Vol] 8.7 mg/dL 8.5-10.1 [facility] Work Phone: [phone] Serum or plasma creatinine m easurement (mass/volume)on 01-01-2022 Creatinine [Mass/Vol] 0.98 mg/dL 0.70-1.30 [facility] Work Phone: Comment on above: The validity of the calculated GFR & GFRAA in patients over 70 years has not been determined. Clinical correlation is essential. Serum or plasma urea nitroge n measurement (mass/volume)on 01-01-2022 Urea nitrogen [Mass/Vol] 18 mg/dL 7-18 [facility] Work Phone: Thin prep Papanicolaou smear with manual screeningon 01-01-2022 Thin prep Papanicolaou smear with manual screening 5 5-15 [facility] Work Phone: Lab Report: CRP, High Sensit ivity [facility] 06-09-2017 CRP HIGH SENS 1.00 mg/L Invalid Interpretation Code [employer] Work Phone: [phone] Lab Report: Lipid Profileon 06-09-2017 Cholesterol 139 mg/dL Invalid Interpretation Code 200 [employer] Work Phone: [phone] HDL Cholesterol 51 mg/dL Invalid Interpretation Code [employer] Work Phone: [phone] LDL Cholesterol 75 mg/dL Invalid Interpretation Code 0-130 [employer] Work Phone: [phone] Triglyceride 65 mg/dL Invalid Interpretation Code [facility] Work Phone: [phone] very low density lipoproteins 13 mg/dL Invalid Interpretation Code 5-40 [employer] Work Phone: [phone] Lab Report: Liver Profileon 06-09-2017 Alanine aminotransferase (ALT) 50 U/L Invalid Interpretation Code 12-78 [employer] Work Phone: [phone] Albumin 3.8 g/dL Invalid Interpretation Code 3.4-5.0 [employer] Work Phone: [phone] Alkaline phosphatase (ALP) 85 U/L Invalid Interpretation Code 45-117 [employer] Work Phone: [phone] Aspartate aminotransferase (AST) 24 U/L Invalid Interpretation Code 15-37 [employer] Work Phone: [phone] Bilirubin (direct) 0.16 mg/dL Invalid Interpretation Code 0.00-0.30 [employer] Work Phone: [phone] Bilirubin (total) 0.80 mg/dL Invalid Interpretation Code 0.20-1.00 [employer] Work Phone: [phone] Globulin 4.0 g/dL Invalid Interpretation Code 2.2-4.2 [employer] Work Phone: [phone] Protein 7.8 g/dL Invalid Interpretation Code 6.4-8.2 [employer] Work Phone: [phone] Office Visiton 03-08-2017 Documentation of current medications (procedure) Done Invalid Interpretation Code [employer] Phone: [phone] Fall risk assessment Fall risk assessment Invali d Interpretation Code [employer] Work Phone: [phone] Protein mass conc Done [employer] Work Phone: [phone] Lab Report: Basic Metabolic Profile (BMP)on 10-15-2016 Anion gap 6 mmol/L Invalid Interpretation Code 5-15 [employer] Work Phone: [phone] Anion gap molar conc 6 mmol/L 5-15 [email or web address] Work Phone: [phone] Calcium mass conc 8.8 mg/dL Invalid Interpretation Code 8.5-10.1 [employer] Work Phone: [phone] Chloride molar conc 107 mmol/L Invalid Interpretation Code 98-107 [employer] Work Phone: [phone] CO2 28.0 mmol/L Invalid Interpretation Code 21.0-32.0 [employer] Work Phone: [phone] CO2 ppres (BldV) 28.0 mmol/L 21.0-32.0 [employer] Phone: [phone] Creatinine mass conc 0.86 mg/dL Invalid Interpretation Code 0.70-1.30 [employer] Work Phone: [phone] eGFR (non-black) 116 mL/min/{1.73_m2} Invalid Interpretation Code >60 [employer] Work Phone: [phone] EST GFR - AA 116 mL/min >60 [employer] Work Phone: [phone] GFR/1.73 sq M predicted among non-blacks MDRD vol rate/area (S/P/Bld) 96 mL/min/{1.73_m2} Invalid Interpretation Code >60 [employer] Work Phone: Glucose 85 mg/dL Invalid Interpretation Code 70-110 [employer] Work Phone: [phone] Glucose mass conc 85 mg/dL Invalid Interpretation Code 70-110 [employer] Work Phone: [phone] Potassium molar conc 3.8 mmol/L Invalid Interpretation Code 3.5-5.1 [employer] Work Phone: [phone] Sodium molar conc 141 mmol/L Invalid Interpretation Code 136-145 [employer] Work Phone: [phone] Urea nitrogen mass conc 15 mg/dL Invalid Interpretation Code 7-18 [employer] Work Phone: [phone] Urea nitrogen/Creatinine mass ratio 17.4 RATIO Invalid Interpretation Code 10-20 [employer] Work Phone: [phone] Lab Report: Lipid Profileon 10-15-2016 Cholesterol in HDL mass conc 49 mg/dL Invalid Interpretation Code [employer] Work Phone: [phone] Cholesterol in LDL mass conc 54 mg/dL Invalid Interpretation Code 0-130 [employer] Work Phone: [phone] Cholesterol mass conc 110 mg/dL Invalid Interpretation Code 200 [employer] Work Phone: [phone] Lipoprotein.pre-beta mass conc 7 mg/dL Invalid Interpretation Code 5-40 [employer] Work Phone: [phone] Triglyceride mass conc 37 mg/dL Invalid Interpretation Code [employer] Work Phone: [phone] Lab Report: Liver Profileon 10-15-2016 Albumin mass conc 3.7 g/dL Invalid Interpretation Code 3.4-5.0 [employer] Work Phone: [phone] Alkaline phosphatase (ALP) 78 U/L Invalid Interpretation Code 45-117 [employer] Work Phone: [phone] ALP enzyme act/vol (Bld) 78 U/L 45-117 [employer] Work Phone: [phone] ALT enzyme act/vol 28 U/L Invalid Interpretation Code 12-78 [employer] Work Phone: [phone] AST enzyme act/vol 21 U/L Invalid Interpretation Code 15-37 [employer] Work Phone: [phone] Bilirubin mass conc 0.50 mg/dL Invalid Interpretation Code 0.20-1.00 [facility] [employer] Work Phone: [phone] Bilirubin.direct mass conc 0.14 mg/dL Invalid Interpretation Code 0.00-0.30 [facility] [employer] Work Phone: [phone] Globulin 3.6 g/dL High 2.3-3.5 [facility] [employer] Work Phone: [phone] Globulin mass conc (S) 3.6 g/dL High 2.3-3.5 [facility] [employer] [employer] Work Phone: [phone] Protein mass conc 7.3 g/dL Invalid Interpretation Code 6.4-8.2 [facility] [employer] Work Phone: [phone] Lab Report: PSA,Total - Jojo al Screenon 10-15-2016 prostate specific antigen (PSA) screening 1.56 ng/mL Invalid Interpretation Code 0.00-4.00 [employer] Work Phone: [phone] Protein mass conc 1.56 ng/mL 0.00-4.00 [employer] Work Phone: [phone] PSA,TOT SCREEN 1.56 ng/mL Invalid Interpretation Code 0.00-4.00 [employer] Work Phone: [phone] Office Visiton 02-24-2016 Protein mass conc Done [employer] Work Phone: [phone] Office Visiton 07-22-2015 Tobacco smoking status NHIS Never smoker [employer] Work Phone: [phone] Tobacco use CPHS Never smoker Invalid Interpretation Code [facility] [employer] Work Phone: [phone] Office Visiton 02-18-2015 cardiac risk group B Invalid Interpretation Code [employer] Work Phone: [phone] General cardiovascular disease 10Y risk [#] [place].D'Agost[place] 6 % Invalid Interpretation Code [employer] Work Phone: [phone] Replaced Document: Lzijaimie Horton CG Observationson 02-18-2015 EKG QRS axis 29 deg Invalid Interpretation Code [facility] [employer] Work Phone: [phone] electrocardiogram interpretation Sinus Rhythm WITHIN NORMAL LIMITS Invalid Interpretation Code [employer] Work Phone: [phone] GE use only - for [employer] import when terms are not otherwise specified 389 ms Invalid Interpretation Code [facility] [employer] Work Phone: Interpretation Sinus Rhythm WITHIN NORMAL LIMITS Invalid Interpretation Code [facility] [employer] Work Phone: P [place] 57 deg Invalid Interpretation Code [facility] [employer] Work Phone: P wave axis, electrocardiogram 57 deg Invalid Interpretation Code [facility] [employer] Work Phone: FL Interval 184 ms Invalid Interpretation Code [facility] [employer] Work Phone: FL interval, electrocardiogram 184 ms Invalid Interpretation Code [facility] [employer] Work Phone: Pulse (Heart Rate) 62 /min Invalid Interpretation Code [facility] [employer] Work Phone: QRS axis, electrocardiogram 29 deg Invalid Interpretation Code [facility] Work Phone: QRS Duration 98 ms Invalid Interpretation Code [facility] [employer] Work Phone: QRS duration, electrocardiogram 98 ms Invalid Interpretation Code [facility] Work Phone: QT Interval new path ms Invalid Interpretation Code [facility] [employer] Work Phone: QT interval, electrocardiogram new path ms Invalid Interpretation Code [facility] [employer] Work Phone: QTc Leyva 389 ms Invalid Interpretation Code [facility] [employer] Work Phone: T [place] 43 deg Invalid Interpretation Code [facility] [employer] Work Phone: T wave axis, electrocardiogram 43 deg Invalid Interpretation Code [facility] [employer] Work Phone: Vital Signs Date Time Vital Sign Value Performing Clinician Faci lity 08-29-2023 13:55-0500 Body height 193.[address] Zurdo Friend Work Phone: [facility] 08-29-2023 13:55-0500 Body mass index (BMI) [Ratio] 13.1 kg/m2 Dr. Zurdo Friend Work Phone: [facility] 08-29-2023 13:55-0500 Body weight 49.[address] Zurdo Friend Work Phone: [facility] 07-07-2023 10:02-0500 Body height 193.[address] Zurdo Friend Work Phone: [facility] 07-07-2023 10:02-0500 Body mass index (BMI) [Ratio] 22.1 kg/m2 Dr. Zurdo Friend Work Phone: [facility] 07-07-2023 10:02-0500 Body weight 82.[address] Zurdo Friend Work Phone: [facility] 07-07-2023 10:02-0500 Diastolic blood pressure 69 mm[Hg] Dr. Zurdo Friend Work Phone: [facility] 07-07-2023 10:02-0500 Heart rate 97 /min Dr. Zurdo Friend Work Phone: [facility] 07-07-2023 10:02-0500 Respiratory rate 14 /min Dr. Zurdo Friend Work Phone: [facility] 07-07-2023 10:02-0500 Systolic blood pressure 152 mm[Hg] Dr. Zurdo Friend Work Phone: [facility] 04-04-2023 08:41-0400 Body temperature 97.6 [degF] Dr. Zurdo Friend Work Phone: [facility] 04-04-2023 08:41-0400 Diastolic blood pressure 69 mm[Hg] Dr. Zurdo Friend Work Phone: [facility] 04-04-2023 08:41-0400 Heart rate 56 /min Dr. Zurdo Friend Work Phone: [facility] 04-04-2023 08:41-0400 Respiratory rate 18 /min Dr. Zurdo Friend Work Phone: [facility] 04-04-2023 08:41-0400 SaO2% (BldA) [Mass fraction] 100 % Dr. Zurdo Friend Work Phone: [facility] 04-04-2023 08:41-0400 Systolic blood pressure 117 mm[Hg] Dr. Zurdo Friend Work Phone: [facility] 04-04-2023 07:16-0400 Body height 193.[address] Zurdo Friend Work Phone: [facility] 04-04-2023 07:16-0400 Body mass index (BMI) [Ratio] 21.2 kg/m2 Dr. Zurdo Friend Work Phone: [facility] 04-04-2023 07:16-0400 Body weight 79.[address] Zurdo Friend Work Phone: [facility] 03-07-2023 16:12-0400 Body mass index (BMI) [Ratio] 22.5 kg/m2 Dr. Zurdo Friend Work Phone: [facility] 03-07-2023 16:12-0400 Body weight 83.[address] Zurdo Friend Work Phone: [facility] 04-16-2022 08:06-0400 Body height 193.[address] Zurdo Friend Work Phone: [facility] Work Phone: 04-16-2022 08:06-0400 Body mass index (BMI) [Ratio] 22.2 kg/m2 Dr. Zurdo Friend Work Phone: [facility] Work Phone: 04-16-2022 08:06-0400 Body weight [address] Zurdo Friend Work Phone: [facility] Work Phone: 04-16-2022 08:06-0400 Diastolic blood pressure 79 mm[Hg] Dr. Zurdo Friend Work Phone: [facility] Work Phone: 04-16-2022 08:06-0400 Heart rate 72 /min Dr. Zurdo Friend Work Phone: [facility] Work Phone: 04-16-2022 08:06-0400 Respiratory rate 16 /min Dr. Zurdo Friend Work Phone: [facility] Work Phone: 04-16-2022 08:06-0400 SaO2% (BldA) [Mass fraction] 100 % Dr. Zurdo Friend Work Phone: [facility] Work Phone: 04-16-2022 08:06-0400 Systolic blood pressure 151 mm[Hg] Dr. Zurdo Friend Work Phone: [facility] Work Phone: 01-14-2022 16:51-0400 Body temperature 98.1 [degF] Dr. Zurdo Friend Work Phone: [facility] Work Phone: 01-14-2022 16:51-0400 Diastolic blood pressure 78 mm[Hg] Dr. Zurdo Friend Work Phone: [facility] Work Phone: 01-14-2022 16:51-0400 Heart rate 78 /min Dr. Zurdo Friend Work Phone: [facility] Work Phone: 01-14-2022 16:51-0400 Respiratory rate 15 /min Dr. Zurdo Friend Work Phone: [facility] Work Phone: 01-14-2022 16:51-0400 SaO2% (BldA) [Mass fraction] 99 % Dr. Zurdo Firend Work Phone: [facility] Work Phone: 01-14-2022 16:51-0400 Systolic blood pressure 134 mm[Hg] Dr. Zurdo Friend Work Phone: [facility] Work Phone: 01-14-2022 14:06-0400 Body height 193.[address] Zurdo Friend Work Phone: [facility] Work Phone: 01-14-2022 14:06-0400 Body mass index (BMI) [Ratio] 22.5 kg/m2 Dr. Zurdo Friend Work Phone: [facility] Work Phone: 01-14-2022 14:06-0400 Body weight 83.[address] Zurdo Friend Work Phone: [facility] Work Phone: 01-11-2022 11:13-0400 Body temperature 97.4 [degF] Dr. Zurdo Friend Work Phone: [facility] Work Phone: 01-11-2022 11:13-0400 Diastolic blood pressure 67 mm[Hg] Dr. Zurdo Friend Work Phone: [facility] Work Phone: 01-11-2022 11:13-0400 Heart rate 63 /min Dr. Zurdo Friend Work Phone: [facility] Work Phone: 01-11-2022 11:13-0400 Respiratory rate 16 /min Dr. Zurdo Friend Work Phone: [facility] Work Phone: 01-11-2022 11:13-0400 SaO2% (BldA) [Mass fraction] 97 % Dr. Zurdo Friend Work Phone: [facility] Work Phone: 01-11-2022 11:13-0400 Systolic blood pressure 127 mm[Hg] Dr. Zurdo Friend Work Phone: [facility] Work Phone: 01-11-2022 06:24-0400 Body height 193.[address] Zurdo Friend Work Phone: [facility] Work Phone: 01-11-2022 06:24-0400 Body mass index (BMI) [Ratio] 22.2 kg/m2 Dr. Zurdo Friend Work Phone: [facility] Work Phone: 01-11-2022 06:24-0400 Body weight [address] Zurdo Friend Work Phone: [facility] Work Phone: 12-28-2021 13:04-0400 Body mass index (BMI) [Ratio] 23.1 kg/m2 Dr. Zurdo Friend Work Phone: [facility] Work Phone: 12-28-2021 13:04-0400 Body temperature 98.4 [degF] Dr. Zurdo Friend Work Phone: [facility] Work Phone: 12-28-2021 13:04-0400 Body weight 86.[address] Zurdo Friend Work Phone: [facility] Work Phone: 12-28-2021 13:04-0400 Diastolic blood pressure 78 mm[Hg] Dr. Zurdo Friend Work Phone: [facility] Work Phone: 12-28-2021 13:04-0400 Heart rate 78 /min Dr. Zurdo Friend Work Phone: [facility] Work Phone: 12-28-2021 13:04-0400 Respiratory rate 18 /min Dr. Zurdo Friend Work Phone: [facility] Work Phone: 12-28-2021 13:04-0400 SaO2% (BldA) [Mass fraction] 98 % Dr. Zurdo Friend Work Phone: [facility] Work Phone: 12-28-2021 13:04-0400 Systolic blood pressure 158 mm[Hg] Dr. Zurdo Friend Work Phone: [facility] Work Phone: 12-28-2021 13:04-0400 Body mass index (BMI) [Ratio] 23.1 kg/m2 Dr. Zurdo Friend Work Phone: [facility] Work Phone: 12-28-2021 13:04-0400 Body temperature 98.4 [degF] Dr. Zurdo Friend Work Phone: [facility] Work Phone: 12-28-2021 13:04-0400 Body weight 86.[address] Zurdo Friend Work Phone: [facility] Work Phone: 12-28-2021 13:04-0400 Diastolic blood pressure 78 mm[Hg] Dr. Zurdo Friend Work Phone: [facility] Work Phone: 12-28-2021 13:04-0400 Heart rate 78 /min Dr. Zurdo Friend Work Phone: [facility] Work Phone: 12-28-2021 13:04-0400 Respiratory rate 18 /min Dr. Zurdo Friend Work Phone: [facility] Work Phone: 12-28-2021 13:04-0400 SaO2% (BldA) [Mass fraction] 98 % Dr. Zurdo Friend Work Phone: [facility] Work Phone: 12-28-2021 13:04-0400 Systolic blood pressure 158 mm[Hg] Dr. Zurdo Friend Work Phone: [facility] Work Phone: 11-26-2021 08:03-0400 Body mass index (BMI) [Ratio] 23.1 kg/m2 Dr. Zurdo Friend Work Phone: [facility] Work Phone: 11-26-2021 08:03-0400 Body temperature 97.7 [degF] Dr. Zurdo Friend Work Phone: [facility] Work Phone: 11-26-2021 08:03-0400 Body weight 86.[address] Zurdo Friend Work Phone: [facility] Work Phone: 11-26-2021 08:03-0400 Diastolic blood pressure 82 mm[Hg] Dr. Zurdo Friend Work Phone: [facility] Work Phone: 11-26-2021 08:03-0400 Heart rate 72 /min Dr. Zurdo Friend Work Phone: [facility] Work Phone: 11-26-2021 08:03-0400 Respiratory rate 17 /min Dr. Zurdo Friend Work Phone: [facility] Work Phone: 11-26-2021 08:03-0400 SaO2% (BldA) [Mass fraction] 100 % Dr. Zurdo Friend Work Phone: [facility] Work Phone: 11-26-2021 08:03-0400 Systolic blood pressure 155 mm[Hg] Dr. Zurdo Friend Work Phone: [facility] Work Phone: 03-08-2017 10:59-0400 BMI (Body Mass Index) 22.34 kg/m2 [facility] Work Phone: 03-08-2017 10:59-0400 BP Diastolic 64 mm[Hg] [facility] Work Phone: 03-08-2017 10:59-0400 BP Systolic 110 mm[Hg] [facility] Work Phone: 03-08-2017 10:59-0400 Height 194.31 cm [facility] Work Phone: 03-08-2017 10:59-0400 Pulse (Heart Rate) 68 /min [facility] Work Phone: 03-08-2017 10:59-0400 Respiratory Rate 20 /min Riri Mora [facility] Work Phone: 03-08-2017 10:59-0400 Weight 84.37 kg Riri Mora [facility] Work Phone: 02-24-2016 11:55-0400 BMI (Body Mass Index) 22.04 kg/m2 [facility] Work Phone: 02-24-2016 11:55-0400 BP Diastolic 50 mm[Hg] Quyen León RN [facility] Work Phone: 02-24-2016 11:55-0400 BP Systolic 100 mm[Hg] [facility] Work Phone: 02-24-2016 11:55-0400 BSA (Body Surface Area) 2.15 m2 Quyen León RN [facility] Work Phone: 02-24-2016 11:55-0400 Pulse (Heart Rate) 60 /min Quyen León RN [facility] Work Phone: 02-24-2016 11:55-0400 Respiratory Rate 20 /min Quyen León RN [facility] Work Phone: 02-24-2016 11:55-0400 Weight 83.24 kg Quyen León RN [facility] Work Phone: 02-18-2015 12:24-0400 Heart rate 62 /min Quyen León RN [facility] Work Phone: 03-01-2012 11:18-0400 Height 194.31 cm Quyen León RN [facility] Work Phone: Encounters Encounter Date Encounter Type Care Provider Facility Start: 09-11-2024 Encounter for genera l adult medical examination without abnormal findings Zurdo Friend [facility] Start: 09-05-2024 End: 09-05-2024 ambulatory [facility] Facility:[facility] Start: 08-30-2024 End: 08-30-2024 ambulatory Zurdo Friend Facility:[facility] Start: 08-22-2024 End: 08-22-2024 ambulatory Zurdo Friend Facility:[facility] Start: 07-11-2024 End: 07-11-2024 ambulatory Zurdo Friend Facility:[facility] Start: 11-16-2023 End: 11-16-[address] Zurdo Friend Work Phone: [facility] Work Phone: Start: 11-16-2023 End: 11-16-[address] Zurdo Friend Work Phone: [facility] Work Phone: Start: 11-16-2023 End: 11-16-2023 ambulatory Zurdo Friend Facility:[facility] Start: 08-29-2023 End: 08-29-[address] Zurdo Friend Work Phone: [facility] Work Phone: Start: 08-12-2023 End: 08-12-[address] Zurdo Friend Work Phone: [facility] Work Phone: Start: 08-12-2023 End: 08-12-[address] Zurdo Friend Work Phone: [facility] Work Phone: Start: 07-07-2023 End: 07-07-[address] Zurdo Friend Work Phone: [facility] Work Phone: Start: 05-16-2023 End: 05-16-[address] Zurdo Friend Work Phone: [facility] Work Phone: Start: 05-06-2023 End: 05-06-[address] Zurdo Friend Work Phone: [facility] Work Phone: Start: 04-04-2023 Non-patient / Non-visit Dr. Jarad Friend Work Phone: [facility] Start: 04-04-2023 End: 04-04-2023 Admission to same day surgery center Dr. Zurdo Friend Work Phone: [facility] Work Phone: Start: 04-04-2023 End: 04-04-[address] Zurdo Friend Work Phone: [facility] Work Phone: Start: 03-29-2023 End: 03-29-[address] Zurdo Friend Work Phone: [facility] Work Phone: Start: 03-07-2023 Non-patient / Non-visit Dr. Jarad Friend Work Phone: [facility] Work Phone: Start: 03-01-2023 End: 03-01-2023 ambulatory [facility] Work Phone: Start: 03-01-2023 End: 03-01-2023 Patient encounter procedure [facility] Work Phone: Start: 10-22-2022 Non-patient / Non-visit Dr. Jarad Friend Work Phone: [facility] Start: 10-22-2022 End: 10-22-[address] Zurdo Friend Work Phone: [facility] Work Phone: Start: 10-22-2022 End: 10-22-[address] [facility] Start: 09-24-2022 End: 09-24-[address] Zurdo Friend Work Phone: [facility] Work Phone: Start: 09-24-2022 End: 09-24-[address] Zurdo Friend Work Phone: [facility] Start: 09-17-2022 End: 09-17-[address] Zurdo Friend Work Phone: [facility] Start: 04-30-2022 Non-patient / Non-visit Dr. Jarad Friend Work Phone: [facility] Start: 04-30-2022 End: 04-30-[address] Zurdo Friend Work Phone: [facility] Work Phone: Start: 04-30-2022 End: 04-30-[address] Zurdo Friend Work Phone: [facility] Start: 04-16-2022 End: 04-16-[address] Zurdo Friend Work Phone: [facility] Start: 03-26-2022 End: 03-26-[address] Zurdo Friend Work Phone: [facility] Work Phone: Start: 03-26-2022 End: 03-26-[address] Zurdo Friend Work Phone: [facility] Start: 01-22-2022 End: 01-22-[address] Zurdo Friend Work Phone: [facility] Start: 01-14-2022 End: 01-14-2022 Emergency department patient visit Dr. Zurdo Friend Work Phone: [facility] Start: 01-11-2022 Non-patient / Non-visit Dr. Jarad Friend Work Phone: [facility] Start: 01-11-2022 End: 01-11-2022 Admission to same day surgery center [facility] Start: 01-01-2022 Non-patient / Non-visit Dr. Jarad Friend Work Phone: [facility] Start: 12-28-2021 End: 12-28-[address] Zudro Friend Work Phone: [facility] Start: 11-26-2021 End: 11-26-[address] Zurdo Friend Work Phone: [facility] Procedures Date Procedure Procedure Detail Performing Clinician Start: 08-29-2023 Plain X-ray of clavicle Dr. Zurdo Friend Work Phone: Start: 05-06-2023 MRI of joint of lowe r extremity Dr. Zurdo Friend Work Phone: Start: 04-04-[address] Zurdo hanna Work Phone: Start: 01-11-2022 Laparoscopic, Inguin al Hernia Repair (Bilateral) Dr. Zurdo Friend Work Phone: Start: 04-18-2017 End: 06-09-2017 *Hepatic [...] Juan Tipton MD Start: 02-18-2015 End: 02-18-2015 [employer] Juan Tipton MD Start: 02-18-2015 End: 02-19-2015 [...] Treatment Date Care Activity Detail Author Start: 04-04-2023 Patient discharge [facility] Start: 10-22-2022 Procedure [facility] Start: 01-11-2022 Anesthesia hernia repair lower abdomen nos ANESTH REPAIR OF HERNIA [facility] Work Phone: Start: 01-11-2022 Laparoscopy surg rpr initial inguinal hernia LAP ING HERNIA REPAIR INIT [facility] Work Phone: Start: 01-11-2022 Laps repair hernia except incal/ingun reducible LAP VENT/ABD HERNIA REPAIR [facility] Work Phone: Start: 01-11-2022 Patient discharge [facility] Work Phone: Start: 03-09-2018 End: 03-09-2018 Appointment Appointment [facility] Work Phone: Start: 12-07-2017 End: 06-10-2017 *Hepatic Function Panel *Hepatic Function Panel [facility] Work Phone: Start: 12-07-2017 End: 06-10-2017 Lipid panel [AGGREGATE] *Lipid Profile CC PCP [facility] Work Phone: Start: 04-18-2017 End: 06-09-2017 *Hepatic Function Panel *Hepatic Function Panel [facility] [facility] Work Phone: Start: 04-18-2017 End: 06-09-2017 Lipid panel [AGGREGATE] *Lipid Profile CC PCP [facility] Work Phone: Start: 04-18-2017 End: 10-21-2016 *Hepatic Function Panel *Hepatic Function Panel [facility] Work Phone: Start: 04-18-2017 End: 10-21-2016 Lipid panel [AGGREGATE] *Lipid Profile CC PCP [facility] Work Phone: Start: 03-08-2017 End: 06-09-2017 *CRPHS - C-reactive protein, high sensitivity (hsCRP) *CRPHS - C-reactive protein, high sensitivity (hsCRP) [facility] Work Phone: Start: 03-08-2017 End: 03-08-2017 BUTCHER HELPER BUTCHER HELPER [facility] Work Phone: Start: 03-08-2017 End: 03-08-2017 Follow Up Appt 1 year Follow Up Appt 1 year [facility] Work Phone: Start: 03-08-2017 End: 03-08-2017 Appointment Appointment [facility] Work Phone: Start: 03-08-2017 End: 03-08-2017 *CRPHS - C-reactive protein, high sensitivity (hsCRP) *CRPHS - C-reactive protein, high sensitivity (hsCRP) [facility] Work Phone: Start: 03-08-2017 End: 03-08-2017 *Hepatic Function Panel *Hepatic Function Panel [facility] Work Phone: Start: 03-08-2017 End: 03-08-2017 [facility] Work Phone: Start: 03-08-2017 End: 03-08-2017 Follow Up Appt 1 year Follow Up Appt 1 year [facility] Work Phone: Start: 03-08-2017 End: 03-08-2017 Lipid panel [AGGREGATE] *Lipid Profile CC PCP [facility] Work Phone: Start: 09-06-2016 End: 10-15-2016 *Hepatic Function Panel *Hepatic Function Panel [facility] Work Phone: Start: 09-06-2016 End: 10-15-2016 Lipid panel [AGGREGATE] *Lipid Profile CC PCP [facility] Work Phone: Start: 09-06-2016 End: 10-15-2016 *Hepatic Function Panel *Hepatic Function Panel [facility] Work Phone: Start: 09-06-2016 End: 10-15-2016 Lipid panel [AGGREGATE] *Lipid Profile CC PCP [facility] Work Phone: Start: 02-24-2016 End: 03-05-2016 *Hepatic Function Panel *Hepatic Function Panel [facility] Work Phone: Start: 02-24-2016 End: 03-08-2017 BUTCHER HELPER BUTCHER HELPER [facility] Work Phone: Start: 02-24-2016 End: 03-08-2017 Follow Up Appt 1 year Follow Up Appt 1 year [facility] Work Phone: Start: 02-24-2016 End: 03-05-2016 Lipid panel [AGGREGATE] *Lipid Profile CC PCP [facility] Work Phone: Start: 02-24-2016 End: 03-05-2016 *Hepatic Function Panel *Hepatic Function Panel [facility] Work Phone: Start: 02-24-2016 End: 03-08-2017 BUTCHER HELPER BUTCHER HELPER [facility] Work Phone: Start: 02-24-2016 End: 03-08-2017 Follow Up Appt 1 year Follow Up Appt 1 year [facility] Work Phone: Start: 02-24-2016 End: 03-05-2016 Lipid panel [AGGREGATE] *Lipid Profile CC PCP [facility] Work Phone: Start: 04-16-2015 End: 04-16-2015 Physical Therapy General Physical Therapy [facility], [address] [place] [address], [id number] [facility] Work Phone: Start: 04-16-2015 End: 04-16-2015 Physical Therapy General Physical Therapy [facility], [address] [place] [address], [id number] [facility] Work Phone: Start: 04-14-2015 End: 04-23-2015 *Hepatic Function Panel *Hepatic Function Panel [facility] Work Phone: Start: 04-14-2015 End: 04-23-2015 Lipid panel [AGGREGATE] *Lipid Profile CC PCP [facility] Work Phone: Start: 04-14-2015 End: 04-23-2015 *Hepatic Function Panel *Hepatic Function Panel [facility] Work Phone: Start: 04-14-2015 End: 04-23-2015 Lipid panel [AGGREGATE] *Lipid Profile CC PCP [facility] Work Phone: Start: 02-18-2015 End: 02-18-2015 Cardiovascular stress test using treadmill Treadmill stress test (no imaging) [facility] Work Phone: Start: 02-18-2015 End: 02-18-2015 BUTCHER HELPER BUTCHER HELPER [facility] Work Phone: Start: 02-18-2015 End: 03-03-2015 Ecg routine ecg w/least 12 lds w/i&r EKG (In office) [facility] Work Phone: Start: 02-18-2015 End: 02-18-2015 Follow Up Appt 1 year Follow Up Appt 1 year [facility] Work Phone: Start: 02-18-2015 End: 02-18-2015 Cardiovascular stress test using treadmill Treadmill stress test (no imaging) [employer] [facility] Work Phone: Start: 02-18-2015 End: 02-18-2015 BUTCHER HELPER BUTCHER HELPER [employer] [facility] Work Phone: Start: 02-18-2015 End: 03-03-2015 Electrocardiogram, complete EKG (In office) [employer] Work Phone: Start: 02-18-2015 End: 02-18-2015 Follow Up Appt 1 year Follow Up Appt 1 year [facility] Work Phone: Start: 09-08-2014 End: 10-10-2014 *Hepatic Function Panel *Hepatic Function Panel [employer] [facility] Work Phone: Start: 09-08-2014 End: 10-10-2014 Lipid panel [AGGREGATE] *Lipid Profile CC PCP [facility] Work Phone: Start: 09-08-2014 End: 10-10-2014 *Hepatic Function Panel *Hepatic Function Panel [facility] Work Phone: Start: 09-08-2014 End: 10-10-2014 Lipid panel [AGGREGATE] *Lipid Profile CC PCP [facility] Work Phone: Start: 02-19-2014 End: 03-15-2014 *Hepatic Function Panel *Hepatic Function Panel [facility] Work Phone: Start: 02-19-2014 End: 02-19-2014 BUTCHER HELPER BUTCHER HELPER [facility] Work Phone: Start: 02-19-2014 End: 02-19-2014 Follow Up Appt 1 year Follow Up Appt 1 year [facility] Work Phone: Start: 02-19-2014 End: 03-15-2014 Lipid panel [AGGREGATE] *Lipid Profile CC PCP [facility] Work Phone: Start: 02-19-2014 End: 03-15-2014 *Hepatic Function Panel *Hepatic Function Panel [facility] Work Phone: Start: 02-19-2014 End: 02-19-2014 BUTCHER HELPER BUTCHER HELPER [facility] Work Phone: Start: 02-19-2014 End: 02-19-2014 Follow Up Appt 1 year Follow Up Appt 1 year [facility] Work Phone: Start: 02-19-2014 End: 03-15-2014 Lipid panel [AGGREGATE] *Lipid Profile CC PCP [facility] Work Phone: Start: 08-08-2013 End: 03-16-2014 *Hepatic Function Panel *Hepatic Function Panel [facility] Work Phone: Start: 08-08-2013 End: 03-16-2014 Lipid panel [AGGREGATE] *Lipid Profile CC PCP [facility] Work Phone: Start: 08-08-2013 End: 03-16-2014 *Hepatic Function Panel *Hepatic Function Panel [facility] Work Phone: Start: 08-08-2013 End: 03-16-2014 Lipid panel [AGGREGATE] *Lipid Profile CC PCP [facility] Work Phone: Start: 02-06-2013 End: 02-09-2013 *Hepatic Function Panel *Hepatic Function Panel [facility] Work Phone: Start: 02-06-2013 End: 02-06-2013 BUTCHER HELPER BUTCHER HELPER [facility] Work Phone: Start: 02-06-2013 End: 02-06-2013 Follow Up Appt 1 year Follow Up Appt 1 year [facility] Work Phone: Start: 02-06-2013 End: 02-09-2013 Lipid panel [AGGREGATE] *Lipid Profile CC PCP [facility] Work Phone: Start: 02-06-2013 End: 02-09-2013 *Hepatic Function Panel *Hepatic Function Panel [facility] Work Phone: Start: 02-06-2013 End: 02-06-2013 BUTCHER HELPER BUTCHER HELPER [facility] Work Phone: Start: 02-06-2013 End: 02-06-2013 Follow Up Appt 1 year Follow Up Appt 1 year [facility] Work Phone: Start: 02-06-2013 End: 02-09-2013 Lipid panel [AGGREGATE] *Lipid Profile CC PCP [facility] Work Phone: Start: 03-01-2012 End: 03-01-2012 Follow Up Appt 1 year Follow Up Appt 1 year [facility] Work Phone: Start: 03-01-2012 End: 03-01-2012 Follow Up Appt 1 year Follow Up Appt 1 year [facility] Work Phone: Colonoscopy [facility] MR Lower Extremity Joint [facility] MR Lower Extremity Joint [facility] Patient Education [facility] Work Phone: Patient referral [facility] Work Phone: Immunizations Immunization Date Immunization Notes Care Provider Ayah katz 04-27-[address] Zurdo Friend Work Phone: [facility] Payers Date Payer Category Payer Self-pay [id number] 2023 Private Health Insurance [id number] 2006 Unknown [id number] Unknown [id number] [id number] Unknown [id number] Unknown [id number] [id number] [id number] Unknown [id number] [id number] Unknown [id number] [id number] [id number] Social History Date Type Detail Facility Start: 12-29-2021 End: 08-29-2023 Tobacco smoking status NHIS Unknown if ever smoked [facility] Start: 1955 Sex Assigned At Male W [facility] Start: 05-18-2017 None [facility] Start: 05-18-2017 Spouse/ Signif icant Other [facility] Start: 05-18-2017 Non-smoker [facility] Medical Equipment Procedure Code Equipment Code Equipment Origin al Text Equipment Identifier Dates [id number] FDA Start: 01-11-2022 ([id number]) [id number] FDA Start: 01-11-2022 ([id number]) [id number] FDA Start: 01-11-2022 Endoscopic manua l linear stapler [id number] FDA Start: 01-11-2022 Ligation clip, synthetic polymer, non-bioabsorbable [id number] FDA Start: 01-11-2022 Ligation clip, synthetic polymer, non-bioabsorbable [id number] FDA Start: 01-11-2022 Goals Date Patient Goal Desired Activity /State Mental Status Date Assessment Result Facility 04-04-2023 Cognitive function Level Of Consciousness Drowsy [facility] Work Phone: 04-04-2023 Cognitive function Voice/Name [facility] Work Phone: 01-11-2022 Cognitive function Voice/Name [facility] Work Phone: Clinical Notes 04-04-2023 Note Date & Type Note Facility 04-04-2023 Procedure note [facility] 04-04-2023 Procedure note [facility] Evaluation note Diagnosis Onset Date History of urinary retention acute Inguinal hernia bilateral, non-recurrent acute History of Clostridioides difficile colitis acute History of urinary retention acute Inguinal hernia bilateral, non-recurrent acute Inguinal hernia bilateral, non-recurrent acute [facility] Work Phone: evaluation note* Diagnosis Onset Date Resolution Status History of Clostridioides difficile colitis acute History of urinary retention acute Inguinal hernia bilateral, non-recurrent acute Inguinal hernia bilateral, non-recurrent acute Inguinal hernia bilateral, non-recurrent acute Umbilical hernia acute [facility] Work Phone: Evaluation note* Diagnosis Onset Date Resolution Status Hyperlipidemia chronic [facility] Work Phone: Evaluation note* Diagnosis Onset Date Resolution Status Internal impingement of right shoulder acute [facility] Work Phone: Evaluation noteNo assessment information available [facility] Work Phone: evaluation note* Diagnosis Onset Date Resolution Status Internal impingement of right shoulder acute Right shoulder pain acute Encounter for screening for malignant neoplasm of colo n acute [facility] Work Phone: Evaluation note* Diagnosis Onset Date Resolution Status Impingement of right shoulder acute Right shoulder pain acute Hyperlipidemia chronic [facility] Work Phone: Evaluation note* Diagnosis Onset Date Resolution Status Arthritis of left sternoclavicular joint acute [facility] Work Phone: History and physical note Author Talha Parada [facility] April 04, 2023 7:12am Note Date/Time April 04, 2023 7: 12am [facility] Medical Records Department [address] [place] [address] History & Physical Exam 04/04/23 0711 MR#: [id number] Acct: [id number] Name: SEDRICK TALBERT Rep #:[id number] : 1955 68 From: Talha Parada DO PCP: Dr. Zurdo Friend MD Status:[facility] Location: [place] [address] HPI - General General Date of Admission: 04/04/23 Date of Service: 04/04/23 Chief Complaint: Screening colonoscopy HPI Narrative SEDRICK TALBERT, is a 68 M who presents today for screening colonoscopy. He had a colonoscopy approximately 10 years ago. There were no polyps or abnormalitiesfound during that time. Does have a history of C. difficile days. He also carries a past medical history of mild GERD and hypercholesterolemia. At this time he is not experiencing any abdominal pain, chest pain, shortness of breath. Overall he is in very good health. [facility] Medical History (Updated 03/30/23 @ 11:38 by Abbey Whitten) Cardiology follow-up encounter Elevated blood pressure reading in office without diagnosis of hypertension Family history of coronary artery disease Gastric reflux High cholesterol History of Clostridioides difficile colitis History of echocardiogram History of hiatal hernia History of stress test History of urinary retention Hoarseness Hyperlipidemia Hypothyroidism Inguinal hernia bilateral, non-recurrent Internal impingement of right shoulder Migraine headache Non-smoker Partial tear of left Achilles tendon Right shoulder pain Umbilical hernia Wears glasses Home Medications atorvastatin 10 mg tablet 10 mg PO DAILY 05/18/17 [History Last Taken 05/15/17] cholecalciferol (vitamin D3) 25 mcg (1,000 unit) capsule 25 mcg PO DAILY 03/31/21 [History Last Taken Unknown] Lactobacillus acidophilus 1.5 mg (250 million cell) capsule (Probiotic Acidophilus) 1,000 mmu cells PO DAILY 12/29/21 [History Last Taken Unknown] omeprazole 40 mg capsule,delayed release 40 mg PO .3 TIMES WEEKLY 09/17/22 [History Last Taken Unknown] Allergy/AdvReac Type Severity Reaction Status Date / Time amoxicillin Allergy Rash Verified 03/30/23 11:30 Penicillins [PCN] Allergy Rash Verified 03/30/23 11:30 sulfamethoxazole Allergy Rash Verified 03/30/23 11:30 [From ] trimethoprim [From ] Allergy Rash Verified 03/30/23 11:30 codeine AdvReac Rash Verified 03/30/23 11:30 Family History Brother CAD (coronary artery disease), Onset Age: 59 CABG Heart disease Brother CAD (coronary artery disease), Onset Age: 59 CABG Heart disease Aunt Heart disease Grandfather Cancer lung Grandmother Cancer lung Surgical History (Updated 03/30/23 @ 11:38 by Abbey Whitten) History of bilateral inguinal hernia repair History of tonsillectomy History of wisdom tooth extraction Hx of colonoscopy Social History household members: spouse current occupational status: retired Smoking Status: Never smoker alcohol intake: never substance use type: does not use ROS Review of Systems ROS Unobtainable: other Constitutional Constitutional: Denies fatigue, fever(s), poor appetite, weight gain or weight loss ENT HEENT: Denies mouth lesions Cardiovascular Cardiovascular: Denies abdominal bloating, abdominal edema or abdominal pain Respiratory/Chest Respiratory/Chest: Denies change in mental status, change in phlegm color, chestcongestion or chest tightness Gastrointestinal Gastrointestinal: Denies belching, bloating, change in bowel habits, change in stool character, chewing difficulty, coffee ground emesis, constipation, cramping, diarrhea, dyspepsia, dysphagia, early satiety, excessive flatus, fecalincontinence, heartburn, hematemesis, hematochezia, hemorrhoids, loose stools, melena, nausea, odynophagia, rectal bleeding, tenesmus, vomiting or weight changes Genitourinary Genitourinary: Denies abdominal discomfort, burning urination or itching Musculoskeletal Musculoskeletal: Reports as per HPI; Denies muscle weakness or myalgias Integumentary Integumentary: Denies jaundice Neurologic Neurologic: Denies lack of coordination or weakness Psychiatric Psychiatric: Denies confusion, depression, memory loss, mood swings, paranoia orsuicidal ideation Endocrine Endocrinology: Denies systems reviewed and no addt'l complaints, except as documented Hematologic/Lymphatic Hematologic/Lymphatic: Denies anemia, easy bleeding, easy bruising or lymphadenopathy Allergic/Immunologic Allergic/Immunologic: Denies systems reviewed and no addt'l complaints, except as documented Physical Exam Const alert General Appearance: cooperative Orientation / Consciousness: oriented to person HEENT hearing grossly normal bilaterally Head and Scalp: normal to inspection Face and Sinus: face symmetric Nose: external nose normal Mouth: oral and palatal mucosa normal Eyes conjunctivae normal General Eye: normal appearance of both eyes Neck full ROM General: normal visual inspection Lymph Lymphatic: no lymphadenopathy noted Chest inspection of chest normal and palpation of chest normal Chest: symmetrical chest wall rise Resp normal respiratory effort Effort and Inspection: able to speak in complete sentences Cardio regular rate GI non-distended Percussion: normal to percussion Rectal Exam: deferred Neuro Speech: speech normal Gait (Neuro): normal gait Assessment & Plan Assessment/Plan (1) Encounter for screening for malignant neoplasm of colon: PLAN: Plan 68-year-old gentleman comes in for screening colonoscopy. He was explained alternatives, risk, benefits including not withstanding bleeding, infection, sepsis, perforation, need for emergent surgery . He will have an ASA of 2. 04/04/23 0712 <Electronically signed by Talha Parada DO> Cosigner Signature (if applicable): CC: Dr. Zurdo Friend MD; Talha Parada DO~ Signed [facility] Work Phone: Chief Complaint and Reason for Visit Chief Complaint Inguinal hernia upd h&p lap bilat ing jarrell 6/6-req RC LAP BILATERAL INGUINAL HERNIA LAP BILATERAL INGUINAL HERNIA Reason for Visit History of urinary r etention Inguinal hernia bilateral, non-recurrent History of Clostridioides difficile colitis History of urinary retention Inguinal hernia bilateral, non-recurrent Inguinal hernia bilateral, non-recurrent Chief Complaint Inguinal hernia upd h&p lap bilat ing jarrell 6/6-req RC LAP BILATERAL INGUINAL HERNIA LAP BILATERAL INGUINAL HERNIA constipation Reason for Visit History of urinary r etention Inguinal hernia bilateral, non-recurrent History of Clostridioides difficile colitis History of urinary retention Inguinal hernia bilateral, non-recurrent Inguinal hernia bilateral, non-recurrent Chief Complaint upd h&p lap bilat in g jarrell 01/11-req RC LAP BILATERAL INGUINAL HERNIA LAP BILATERAL INGUINAL HERNIA LAP BILATERAL INGUINAL HERNIA constipation HERNIA 01/11/22 Reason for Visit History of Clostridi oides difficile colitis History of urinary retention Inguinal hernia bilateral, non-recurrent Inguinal hernia bilateral, non-recurrent Inguinal hernia bilateral, non-recurrent Umbilical hernia Chief Complaint LAP BILATERAL INGUIN AL HERNIA LAP BILATERAL INGUINAL HERNIA constipation HERNIA 01/11/22 1 Y FU CAD, ASHD Reason for Visit Hyperlipidemia Chief Complaint RIGHT SHOULDER Reason for Visit Internal impingement of right shoulder Chief Complaint RIGHT SHOULDER DIPLOPIA- ADD LABS Reason for Visit Internal impingement of right shoulder Chief Complaint Amb Documentation right shoulder Reason for Visit Internal impingement of right shoulder Right shoulder pain Encounter for screening for malignant neoplasm of colon Chief Complaint RIGHT SHOULDER PAIN RIGHT SHOULDER 1 Y FU Reason for Visit Impingement of right shoulder Right shoulder pain Hyperlipidemia Chief Complaint LEFT SHOULDER RM 4 EORDER Reason for Visit Arthritis of left st ernoclavicular joint Family History No Family History Records Found Relationship Condition Age at Onset Recorded Date/T awais brother Coronary artery disease 59 Cardiac disease Unknown aunt Cardiac disease Unknown grandfather Malignant neoplasm Unknown grandmother Malignant neoplasm Unknown Advance Directives No Advanced Directives Records Found Advance Directive Response Recorded Date/ Time Living Will No December 29, 2021 1 1:56am Power of Bioinformatics Team Member No December 29, 2021 11:56am Advance Directive Response Recorded Date/ Time Living Will No January 14, 2022 2 :17pm Power of Bioinformatics Team Member No January 14, 2022 2:17pm Advance Directive Response Recorded Date/ Time Living Will No January 14, 2022 1 :17pm Power of Bioinformatics Team Member No January 14, 2022 1:17pm Advance Directive Response Recorded Date/ Time Living Will No March 30 3 11:38am Power of Bioinformatics Team Member No March 30 11:38am Advance Directive Response Recorded Date/ Time Living Will No May 13 3 7:18am Power of Bioinformatics Team Member No May 13 7:18am Advance Directive Response Recorded Date/ Time Living Will No May 13 3 8:18am Power of Bioinformatics Team Member No October 6th, 2 023 8:18am Summary Purpose Additional Source Comments Goals (unrecognized section and content) Goals may be documented in a n alternate sectionGoals may be documented in an alternate sectionGoals may be documented in an alternate sectionGoals may be documented in an alternate sectionGoals may be documented in an alternate sectionGoals may be documented in an alternate sectionGoals may be documented in an alternate section Care Teams (unrecognized sec tion and content) Team Status: Active Member Role Status Dates Dr. Flavio Alcantar MD Family Provider Active Dr. Zurdo Friend MD Primary Care Provider Active Team Status: Inactive Member Role Status Dates Dr. Zurdo Friend MD Primary Care Provider, Referring Provider Active Sedrick De Leon MD Attending Provider Active Team Status: Inactive Member Role Status Dates Dr. Zurdo Friend MD Primary Care Provi gab, Attending Provider, Referring Provider Active Team Status: Active Member Role Status Dates Dr. Zurdo Friend MD Primary Care Provider Active Dr. Jacob Baxter MD Attending Provider Active Team Status: Inactive Member Role Status Dates Dr. Zurdo Friend MD Primary Care Provider Active Dr. Riley Calderon MD Attending Provider, Referring Provider Active Team Status: Active Member Role Status Dates Dr. Zurdo Friend MD Primary Care Provider Active Dianne Luke Attending Provider Active Team Status: Active Member Role Status Dates Dr. Zurdo Friend MD Primary Care Provider, Referring Provider Active Dr. Talha Parada DO Attending Provider, Other Prov ider Active Team Status: Inactive Member Role Status Dates Dr. Zurdo Friend MD Primary Care Provider, Referring Provider Active Dr. Talha Parada DO Attending Provider Active Team Status: Inactive Member Role Status Dates Dr. Zurdo Friend MD Primary Care Provider, Referring Provider Active Dr. Juan Tipton MD Attending Provider Active Team Status: Inactive Member Role Status Dates Dr. Zurdo Friend MD Primary Care Provider Active Sedrick De Leon MD Attending Provider Active Team Status: Inactive Member Role Status Dates Dr. Zurdo Friend MD Primary Care Provider Active Dr. Juan Tipton MD Attending Provider Active (unrecognized sect ion and content) No Status Records Found INFORMATION SOURCE (unrecogn ized section and content) DATE CREATED AUTHOR 09/23/2024 [facility] FOR RECORDS PERTAINING TO PATIENTS WHO ARE [...] BE BASED ON THE PRIMARY CLINICAL RECORDS. [facility] [employer] [facility]. provides no warranty or guarantee of the accuracy or completeness of information in this document.
[2025-04-24 10:58] LABS: AST(SGOT) 22 U/L (<=37); Alanine Aminotransfer ALT/SGPT 16 U/L (<=46); Albumin, Serum 4.2 g/dL (3.4-4.8); Alkaline Phosphatase 75 U/L (40-129); Anion Gap 10 (5-15); BUN 19 mg/dL (4-19); BUN/Creat Ratio 21.4 RATIO (10-20); Calcium,Total 9.3 mg/dL (7.6-11.0); Carbon Dioxide 23.8 mmol/L (21.0-32.0); Chloride 107 mmol/L (98-108); Cholesterol 113 mg/dL (<=200); Globulin 2.8 g/dL (2.2-4.2); Glucose 93 mg/dL (70-99); Low Density Lipoprotein Calc. 54 mg/dL; Potassium 4.0 mmol/L (3.3-5.1); T3 Total - Triiodothyronine 0.90 ng/mL (0.80-2.00); Triglycerides 42 mg/dL; Very Low Density Lipoprotein 8 mg/dL (5-40); cholesterol:hdl ratio screen 2.22
[2025-04-25 14:34] LABS: Free T3 2.8 pg/mL (2.18-3.98)
== END | disposition home or self-care (01) ==
LOC: MTLAB 07:15
PROVIDERS: PCP Family Medicine; Referring Provider Family Medicine; Visit Provider Family Medicine
DX: E78.00 Pure hypercholesterolemia, unspecified (principal); E03.9 Hypothyroidism, unspecified
CPT/HCPCS: 36415; 80053; 80061; 84439; 84443; 84480; 84481